=== PATIENT | female | born 1930 | race Caucasian/White ===

== ENCOUNTER 2017-08-20 15:34 | Observation (INO) | payer MEDICARE ==
[2017-08-20 16:48] LABS: Hematocrit 35 % (35-47); Mean Corpuscular HGB Conc 35 g/dl (31-36); Mean Corpuscular Hemoglobin 31 pg (27-31); Mean Corpuscular Volume 88 fL (80-97); Mean Platelet Volume 7.2 um3 (7.4-10.4); Platelet Count 273 10^3/ul (150-450); Red Blood Count 3.93 10^6/ul (4.0-5.4); Red Cell Distribution Width 14 % (10.5-15); White Blood Count 6.4 10^3/ul (3.5-10.8)
[2017-08-20 17:05] LABS: EGFR Non-African American 36.6 (>60)
[2017-08-20] MEDS ORDERED: Metoprolol Tartrate IV* 1 MG/ML 5 ML VIAL IV ONE ×2 (18:09→20:01)
--- NOTE | 2017-08-20 18:26 | RAD ---
HISTORY: Altered mental status COMPARISONS: May 12, 2006 TECHNIQUE: Multiple contiguous axial CT scans were obtained of the head without intravenous contrast. FINDINGS: HEMORRHAGE/INFARCT: There is no hemorrhage or acute infarct. MASSES/SHIFT: There is no mass or shift. EXTRA-AXIAL SPACES: There are no extra-axial fluid collections. SULCI AND VENTRICLES: The sulci and ventricles are normal in size and position for the patient's stated age. CEREBRUM: There are no focal parenchymal abnormalities. BRAINSTEM: There are no focal parenchymal abnormalities. CEREBELLUM: There are no focal parenchymal abnormalities. VESSELS: There is calcification of the cavernous segments of the internal carotid arteries bilaterally. PARANASAL SINUSES: The paranasal sinuses are clear. ORBITS: The orbits are unremarkable. BONES AND SOFT TISSUE: No bone or soft tissue abnormalities are noted. OTHER: None IMPRESSION: NO ACUTE INTRACRANIAL PATHOLOGY.
[2017-08-20 19:06] LABS: Urine Appearance Clear; Urine Blood Negative (Negative); Urine Color Yellow; Urine Ketones Negative (Negative); Urine Protein 1+(30 mg/dL) (Negative); Urine Specific Gravity 1.009 (1.010-1.030); Urine Urobilinogen Negative (Negative)
[2017-08-21] MEDS ORDERED: NS 0.9% 1000 ML* 1,000 ML IV SCH (00:15)
--- NOTE | 2017-08-21 02:00 | HP ---
CC: Dr. Cam * HISTORY AND PHYSICAL: DATE OF ADMISSION: 08/20/17 PRIMARY CARE PROVIDER: Dr. Cam. CHIEF COMPLAINT: Confusion. HISTORY OF PRESENT ILLNESS: Ms. Antonio is an 86-year-old female who has a history of hypertension, hyperlipidemia, and acid reflux, who presents to the emergency room with possibly confusion versus word finding difficulties. The patient states that the staff at the [facility] where she resides thought she was mixing up her words. Her daughter noted this the night prior to admission as well. The patient states currently she is feeling well, but tired. The patient's daughter reportedly stated to her mom that she thought she was still perhaps having some mild problems. There was concern that the patient may have had a urinary tract infection, by her daughter, in the days leading up to these events. However, she was not treated with antibiotics. She had taken some herbal medication and some Aleve recently, which she stopped. The patient ultimately was brought to the emergency room by her daughter for evaluation of the possible confusion. PAST MEDICAL HISTORY: 1. Hypertension. 2. Hyperlipidemia. 3. GERD. PAST SURGICAL HISTORY: 1. Left cataract extraction. 2. Tonsillectomy. MEDICATIONS: 1. Simvastatin 40 mg p.o. daily. 2. Ferrous sulfate 325 mg p.o. daily. 3. Vitamin B12, 3000 mcg p.o. daily. 4. Omeprazole 20 mg p.o. daily. 5. Metoprolol tartrate 12.5 mg p.o. twice daily. 6. Lisinopril 2.5 mg p.o. daily. 7. Centrum Silver Women 1 tab p.o. daily. ALLERGIES: No known drug allergies. FAMILY HISTORY: Mom at the age of 78 of coronary disease. Dad in his 30s of a pneumonia. SOCIAL HISTORY: The patient is a former smoker. She quit approximately 16 years ago and has a [id number] history of smoking. She does not drink alcohol. She resides at the [facility]. 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 She is . She had 2 children, her son committed suicide. Her daughter Eve is her healthcare proxy. REVIEW OF SYSTEMS: A complete 11-system review of systems was obtained. Pertinent positives and negatives are as per HPI. In addition, the patient does deny any palpitations. She does admit to mild constipation. PHYSICAL EXAMINATION GENERAL: The patient is a well-developed elderly female, sitting up in the chair, in no acute distress. VITAL SIGNS: Blood pressure 144/87, pulse 68, respirations 26, temp 97.8, O2 sat 95% on room air. HEENT: Pupils are equal and round. Extraocular muscles are intact. Oropharynx is clear. Oral mucosa is moist. There is no submandibular, cervical or supraclavicular adenopathy. Thyroid is not enlarged. No thyroid nodules noted. PULMONARY: Lungs are clear to auscultation bilaterally. CARDIAC: Normal S1 and S2. Regular rate and rhythm. There is a 3/6 systolic murmur, heard best at the right upper sternal border. There is no lower extremity edema. ABDOMEN: Bowel sounds are present. Abdomen is soft, nontender, nondistended. MUSCULOSKELETAL: There is no cyanosis or clubbing of the digits. There is full active range of motion of all 4 extremities. NEURO: Cranial nerves II through XII are grossly intact. The patient does appear to have slight left facial droop, most noted at the linen room custodian of the mouth on the left. Sensation is intact to light touch throughout. Strength is 5/5 and symmetric in the upper and lower extremities bilaterally. The patient does at times have trouble with word finding; however, she does state that she is tired and she has trouble finding medical related words such as anemic. SKIN: Warm and dry. There are no rashes. PSYCH: The patient is alert. She is oriented x3. Affect appears appropriate. DIAGNOSTIC STUDIES/LAB DATA: WBC 6.4, hemoglobin 12.0, hematocrit 35, platelets 273. Sodium 126, potassium 4.4, chloride 92, CO2 of 23, BUN 24, creatinine 1.37, glucose 93, calcium 9.6. Bilirubin 0.4, AST 25, ALT 19, alk phos 51, albumin 3.9. Urinalysis reveals a specific gravity of 1.009, 1+ protein , 1+ bacteria, trace WBC, negative leukocyte esterase, negative nitrite. EKG reveals normal sinus rhythm, without any acute ST-T wave abnormalities. CT brain: No acute intracranial pathology. ASSESSMENT AND PLAN: Ms. Antonio is an 86-year-old female with a history of hypertension, hyperlipidemia, and gastroesophageal reflux disease, who was seen in the emergency room today for complaints of possible confusion versus word finding difficulty. 1. Confusion versus word finding difficulty. The patient appears to be doing quite well at this time. It is late and the words that she is having trouble with currently are not common. The patient has no evidence of slurred speech. She does have a slight left facial droop. She does not recall seeing this, but she also is not looking at a mirror at this point to tell me whether or not this is baseline. I am concerned that she could have had a small cerebrovascular accident. The patient will be started on Plavix (she declines aspirin given her history of anemia) and she will be maintained on her usual dose of Zocor. She will have neuro checks every 4 hours. She will undergo transthoracic echocardiogram and MRI of the brain tomorrow. I am going to hold off on neuro consultation at this point; however, this could be considered tomorrow. Additionally, a hypertensive encephalopathy is a possibility as the cause of her symptoms. The patient's blood pressure was markedly elevated on presentation to the emergency room at 200/99. Her blood pressure has trended down, but is not as low as it typically is. She states typically she runs with the systolic in the 120s. The diagnostic plan will be just as above. I will increase her lisinopril to 5 mg daily with close monitoring of her blood pressure. 2. Hypertension, as above. The patient had marked hypertension on presentation to the emergency room. Her blood pressure has trended down with 2 doses of IV metoprolol in the ER. She will continue on her usual dose of metoprolol tartrate and I will increase her lisinopril to 5 mg daily. We will monitor her blood pressure closely. 3. Hyperlipidemia. Lipid profile will be obtained tomorrow morning, but in the meantime she will continue on her usual dose of Zocor. 4. DVT prophylaxis. According to the Adult Thrombosis Prophylaxis Risk Factor Assessment Guide, the patient has a total risk factor score of 4, making her high risk. She will be placed on heparin 5000 units subcutaneous q.8 hours. 5. Code status is full. TIME SPENT: 65 minutes were spent on admitting this patient. [id number]/[facility] #: [id number] JESUSITA
[2017-08-21] MEDS: Clopidogrel TAB* 75 MG PO SCH ×2 (02:02→09:56)
[2017-08-21] MEDS ORDERED: hydrALAZINE IV* 20 MG/ML VIAL IV SLOW PU PRN (04:04)
[2017-08-21] MEDS: Heparin VIAL(*) 5000 UNITS/ML VIAL (FIVE THOUSAND) SUBCUT SCH ×3 (05:34→22:02)
[2017-08-21 08:14] LABS: EGFR Non-African American 39.5 (>60)
[2017-08-21] MEDS ORDERED: Lisinopril TAB* 5 MG PO SCH (09:00)
[2017-08-21] MEDS ORDERED: CMCS:Pantoprazole TAB (NF) 40 MG TAB PO SCH (09:00)
[2017-08-21] MEDS: Metoprolol Tartrate TAB* 25 MG PO SCH ×2 (09:54→22:02)
[2017-08-21] MEDS: Ferrous Sulfate TAB* 325 MG PO SCH (09:55)
[2017-08-21] MEDS: Atorvastatin* 20 MG TAB PO SCH (09:56)
[2017-08-21] MEDS: Lisinopril TAB* 5 MG PO SCH (09:57)
--- NOTE | 2017-08-21 13:15 | RAD ---
HISTORY: Stroke COMPARISONS: CT dated August 20, 2017 TECHNIQUE: The following sequences were obtained of the head: Sagittal T1-weighted images, axial T2-weighted images, axial FLAIR images, axial susceptibility weighted images, axial T1-weighted images. Additionally, axial diffusion-weighted images were obtained with calculated apparent diffusion coefficients. FINDINGS: HEMORRHAGE/INFARCT: There is no hemorrhage or acute infarct. MASSES/SHIFT: There is no mass or shift. EXTRA-AXIAL SPACES/MENINGES: There are no extra-axial fluid collections. SULCI AND VENTRICLES: The sulci and ventricles are normal in size and position for the patient's stated age. CEREBRUM: There are multiple scattered small foci of elevated T2/FLAIR signal within the periventricular and subcortical white matter. BRAINSTEM: There is elevated T2/FLAIR signal within the pontine white matter. CEREBELLUM: There are no focal parenchymal abnormalities. The cerebellar tonsils are normal in size and position. SELLA: The sella is normal. PINEAL: The pineal region is clear. CP ANGLE/TEMPORAL BONES: The labyrinthine structures are grossly normal. VESSELS: Normal flow-voids are noted within the visualized vertebral vasculature. DIFFUSION ABNORMALITIES: There are no diffusion abnormalities. PARANASAL SINUSES/MASTOIDS: The paranasal sinuses are clear. ORBITS: The orbits are unremarkable. BONES AND SOFT TISSUE: No bone or soft tissue abnormalities are noted. OTHER: None IMPRESSION: 1. ELEVATED T2/FLAIR SIGNAL WITHIN THE PERIVENTRICULAR, SUBCORTICAL, AND PONTINE WHITE MATTER, NONSPECIFIC, BUT SUGGESTIVE OF CHRONIC SMALL VESSEL ISCHEMIA. 2. NO RESTRICTED DIFFUSION TO SUGGEST ACUTE INFARCT.
--- NOTE | 2017-08-21 17:31 | RAD ---
HISTORY: Stuttering speech, speech disturbance COMPARISONS: None TECHNIQUE: Multiple transverse and longitudinal ultrasound images were obtained of the carotid and vertebral arteries bilaterally, using grayscale, color Doppler, and spectral Doppler imaging. FINDINGS: Measurement of carotid stenosis is based on flow velocity parameters that correlate the residual internal carotid artery diameter with [place] Symptomatic Carotid Endarterectomy Trial (NASCET)-based stenosis levels. RIGHT: Intima: There is diffuse intimal thickening with more focal atheroma formation at the bifurcation. Velocities: Right internal carotid artery maximum peak systolic velocity: 81 cm/s Right common carotid artery maximum peak systolic velocity: 72 cm/s Right internal carotid artery/common carotid artery ratio: 0.8 Waveforms: There is no spectral broadening. Right Vertebral: The right vertebral artery flow is antegrade. LEFT: Intima: There is diffuse intimal thickening with more focal atheroma formation at the bifurcation. Velocities: Left internal carotid artery maximum peak systolic velocity: 70 cm/s Left common carotid artery maximum peak systolic velocity: 92 cm/s Left internal carotid artery/common carotid artery ratio: 0.8 Waveforms: There is no spectral broadening. Left Vertebral: The left vertebral artery flow is antegrade. OTHER FINDINGS: None. IMPRESSION: 1. ATHEROMATOUS DISEASE. 2. NO HEMODYNAMICALLY SIGNIFICANT STENOSIS OF THE RIGHT INTERNAL CAROTID ARTERY BY FLOW VELOCITY MEASUREMENTS. THIS CORRESPONDS TO A LUMINAL DIAMETER OF LESS THAN 50% STENOSIS BY NASCET CRITERIA. 3. NO HEMODYNAMICALLY SIGNIFICANT STENOSIS OF THE LEFT INTERNAL CAROTID ARTERY BY FLOW VELOCITY MEASUREMENTS. THIS CORRESPONDS TO A LUMINAL DIAMETER OF LESS THAN 50% STENOSIS BY NASCET CRITERIA. CPT II Codes: 3100F
--- NOTE | 2017-08-21 17:45 | ECHO ---
Patient: PEPPER RAMOS [facility] Rec#: [id number] : 1930 Date: 08/21/2017 Age: 86y Height: 162.56 cm / 64.0 in Weight: 72.57 kg / 159.9 lbs Sex: F BSA: 1.78 Room#: 450 Admit Date#: 08/20/2017 Type: Inpatient Referring: Nel Joseph DO Reading: Nicole Ogden MD Adoption Coordinator: María Elena Arechiga RDCS,RDMS CC: Cynthia Cam MD Transthoracic Echocardiogram Indication: Cardiac murmur BP: 142/69 HR: 69 Rhythm: NSR Findings History: AOV stenosis, HTN, HLD, GERD, former smoker Technical Comments: The study quality is good. Left Ventricle: The left ventricular chamber size is normal. Mild concentric left ventricular hypertrophy is observed. Global left ventricular wall motion and contractility are within normal limits. The estimated ejection fraction is 60-65%. There is no consistent Doppler evidence of clinically significant diastolic dysfunction. Left Atrium: The left atrial chamber size is normal. Right Ventricle: The right ventricular chamber size and systolic function are within normal limits. The right ventricle wall thickness is mildly increased. Right Atrium: The right atrial cavity size is normal. Aortic Valve: The aortic valve leaflets are mildly thickened. There is moderate thickening of the non coronary cusp. Systolic excursion of the aortic valve cusps is reduced. There is no evidence of aortic regurgitation. There is mild to moderate aortic stenosis. The mean gradient of the aortic valve is 15 mmHg. The aortic valve area, by VTI's, is calculated at 1.1 cm2. Mitral Valve: There is mitral annular calcification. Mild mitral leaflet calcification is visualized. There is no evidence of mitral regurgitation. There is no evidence of mitral stenosis. Tricuspid Valve: The tricuspid valve leaflets are not thickened. There is trace tricuspid regurgitation. Unable to estimate the right ventricular systolic pressure. Pulmonic Valve: The pulmonic valve structure is not well visualized. There is no evidence of pulmonic regurgitation. Pericardium: There is no significant pericardial effusion. Aorta: The aortic root appears normal. There is no dilatation of the aortic arch. Pulmonary Artery: The main pulmonary artery is not well visualized. Venous: The inferior vena cava appears normal in size. There is a greater than 50% respiratory change in the inferior vena cava dimension. Conclusions Mild concentric left ventricular hypertrophy is observed, The estimated ejection fraction is 60-65%. The right ventricular chamber size and systolic function are within normal limits. The aortic valve leaflets are mildly thickened. There is mild to moderate aortic stenosis: the mean gradient of the aortic valve is 15 mmHg. The aortic valve area, by VTI's, is calculated at 1.1 cm2. There is mitral annular calcification and MV sclerosis. Compared with prior echo of 07/31/13, LVEF has normalized from 35-40%, seen previously, mean gradient has increased from 9 mHg, previous moderate MR and TR no longer noted. Prior PA pressure was 62 mmHg. Measurements Name Value Normal Range RVIDd (AP) 2D 2.3 cm (0.9 - 2.6) RVDdMajor (2D) 2.3 cm (2.2 - 4.4) RAd ISD 4CH 4 cm (3.4 - 4.9) RA (A4C)W 3.1 cm (2.9 - 4.6) IVSd (2D) 1.2 cm (0.6 - 1) LVPWd (2D) 1.3 cm (0.6 - 1) LVIDd (2D) 4 cm (3.6 - 5.4) LVIDs (2D) 2.3 cm - LV FS (2D) 43 % (25 - 45) Aortic Annulus 2 cm (1.4 - 2.6) Ao root diameter (2D) 2.9 cm (2.1 - 3.5) Ascending Ao 3 cm (2.1 - 3.4) Aortic arch 2.3 cm (1.8 - 3.4) LA dimension (AP) 2D 3.1 cm (2.3 - 3.8) LAd ISD 4CH 4.3 cm (2.9 - 5.3) LA ISD 4CH W 3.6 cm (2.5 - 4.5) Name Value Normal Range LA ESV SP 4CH (A/L) 43.86 ml - LA ESV SP 2CH (A/L) 39.07 ml - LA ESV BP (A/L) 43.37 ml - LA ESV BP (A/L) index 25 ml/m2 - LA ESV SP 4CH (MOD) 38.21 ml - LA ESV SP 2CH (MOD) 35.25 ml - Name Value Normal Range MV E-wave Vmax 6 m/sec - MV deceleration time 228 msec - MV A-wave Vmax 1 m/sec - MV E:A ratio 0.6 ratio - LV septal e' Vmax 0.04 m/sec - LV lateral e' Vmax 0.08 m/sec - LV E:e' septal ratio 15 ratio - LV E:e' lateral ratio 7.5 ratio - Name Value Normal Range AV Vmax 2.5 m/sec - AV VTI 51 cm - AV peak gradient 25 mmHg - AV mean gradient 15 mmHg - LVOT diameter 2 cm - LVOT Vmax 0.8 m/sec - LVOT VTI 18 cm - LVOT peak gradient 2.6 mmHg - LVOT mean gradient 1.4 mmHg - DOI (VTI) 0.4 ratio - SV LVOT 55.54 ml - SANDRA (continuity Vmax) 1 cm2 - SANDRA (continuity VTI) 1.1 cm2 - Name Value Normal Range MV Vmax 1.1 m/sec - MV VTI 25 cm - MV peak gradient 5 mmHg - MV mean gradient 1.8 mmHg - MV PHT 48 msec - MVA (PHT) 4.6 cm2 - MVA (continuity VTI) 2.2 cm2 - Name Value Normal Range RAP 8 mmHg - IVC diameter 1.6 cm - Name Value Normal Range PV Vmax 0.5 m/sec - PV peak gradient 1 mmHg -
--- NOTE | 2017-08-21 18:36 | PN ---
Subjective Date of Service: 08/21/17 Interval History: Pt seen and examined. Meds and labs reviewed. ROS: Denied REECE/dizziness, F/C, N/V, CP, SOB, increased cough, sputum production , abd pain, diarrhea, constipation, dysuria, myalgias, arthralgias, throat pain , and new skin lesions. The rest of the 14 point ROS are unremarkable. PHYSICAL EXAM: GEN APPEARANCE: Awake, not in acute distress HEENT: NC/AT, PERRLA, moist oral mucosa, (-) throat erythema NECK: Soft, supple, (-) cervical LAD, (-)JVD HEART: S1S2 WNL, RRR, No MRG CHEST: CTA, BL, GAE, No W/R/R ABD: Soft, ND/NT, NABS 4x Q EXT: No C/C/E SKIN: Warm to touch PSYCH: No active psychosis, hallucinations, depression, SI/HI Objective Active Medications: Atorvastatin Calcium (Lipitor*) 20 mg PO DAILY [facility] Last Admin: 08/21/17 09:56 Dose: 20 mg Clopidogrel Bisulfate (Plavix Tab*) 75 mg PO DAILY [facility] Ferrous Sulfate (Ferrous Sulfate Tab*) 325 mg PO DAILY [facility] Last Admin: 08/21/17 09:55 Dose: 325 mg Heparin Sodium (Porcine) (Heparin Vial(*)) 5,000 units SUBCUT Q8HR [facility] Last Admin: 08/21/17 15:34 Dose: 5,000 units Hydralazine HCl (Apresoline Iv*) 5 mg IV SLOW PU Q6H PRN PRN Reason: SBP>190 Last Admin: 08/21/17 04:36 Dose: 5 mg Lisinopril (Prinivil Tab*) 5 mg PO DAILY [facility] Last Admin: 08/21/17 09:57 Dose: 5 mg Metoprolol Tartrate (Lopressor Tab*) 12.5 mg PO BID [facility] Last Admin: 08/21/17 09:54 Dose: 12.5 mg Vital Signs - 8 hr 08/21/17 08/21/17 08/21/17 12:22 13:29 14:42 Temperature 97.1 F 98.2 F 97.3 F Pulse Rate 63 99 77 Respiratory 16 16 18 Rate Blood Pressure 148/62 131/78 133/62 (mmHg) O2 Sat by Pulse 96 93 Oximetry 08/21/17 16:01 Temperature 97.4 F Pulse Rate 65 Respiratory 16 Rate Blood Pressure 149/75 (mmHg) O2 Sat by Pulse 100 Oximetry Oxygen Devices in Use Now: None Result Diagrams: 08/20/17 16:35 08/21/17 06:08 Microbiology and Other Data: Microbiology 08/21/17 00:55 Nasal Screen MRSA (PCR)(SARITA) - Final Nasal Mrsa Not Detected Assess/Plan/Problems-Billing Assessment: - Patient Problems (1) TIA (transient ischemic attack) Current Visit: Yes Status: Acute Comment: --MRI, echo, and carotid evaluations shows NAD --Pts symptoms and word finding difficulty improved --Ordered fasting lipid profile in AM --Will order HBa1c and TSH (2) HTN (hypertension) Current Visit: Yes Status: Acute Code(s): I10 - ESSENTIAL (PRIMARY) HYPERTENSION SNOMED Code(s): 58713926 Comment: --Continue Lisinopril and Metoprolol (3) DVT prophylaxis Current Visit: Yes Status: Acute Code(s): JKS3914 - SNOMED Code(s): 318453520 Comment: --Continue Heparin SQ Status and Disposition: --For PT eval
[2017-08-21] MEDS ORDERED: Clopidogrel TAB* 75 MG PO SCH (19:00)
--- NOTE | 2017-08-21 21:21 | CONS ---
NEUROLOGY CONSULTATION REPORT: DATE OF CONSULT: 08/21/17 CONSULTING PHYSICIAN: Dr. Nel Joseph. REASON FOR CONSULT: Neurology was consulted by Dr. Joseph to evaluate for possible stroke. The history was obtained from the patient. I also discussed the case in detail with the patient's daughter, Madelyn. CHIEF COMPLAINT: "Administration at my facility were giving me a hard time." HISTORY OF PRESENT ILLNESS: Beverly Antonio is an 86-year-old right-handed female, who has history of hypertension, who lives at [facility] and is independent in all activities of daily living. The patient had sudden onset of confusion that started yesterday at 3 p.m. She came down to the lobby in the facility and she thought that administrators were giving a "hard time." According to her daughter, Madelyn, the patient was trying to put a remote clicker in her purse thinking it is her phone. She was coherently not making any sense. She was slurring her words and substituting words with incorrect words. For instance, she stated "I will see you yesterday." This was sudden in onset. This progressed throughout the day. EMS was contacted and the patient was found to be significantly hypertensive. She denied any focal weakness or paresthesias. 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 The patient is not allergic to aspirin and suffered from anemia of unclear etiology with no history of hemorrhage in the past. She did require a blood transfusion. The patient has history of word-finding difficulty for the last 3 to 4 months. According to Madelyn, the patient has had memory problems and is very forgetful. PAST MEDICAL HISTORY: Anemia, requiring blood transfusion; CHF; hypertension; syncope; pulmonary hypertension; osteoporosis; cataracts. PAST SURGICAL HISTORY: No intracranial surgeries. FAMILY HISTORY: Mother had severe Alzheimer's dementia. Father of pneumonia. SOCIAL HISTORY: The patient was a smoker 16 years ago. She was smoking 1 pack per day for 30 years. She denied any alcohol use. She lives alone in a senior residence. REVIEW OF SYSTEMS: A 10-point review of systems was obtained and otherwise negative except for what was mentioned in the HPI. Specifically, the patient denied any impairment in her bowel or bladder function. The patient had no recent falls. PHYSICAL EXAM: Vitals: Temperature 97.8, heart rate of 77, respiratory rate of 16, saturating 98%, blood pressure upon arrival was 200 systolic. Her systolic blood pressure went up to 220s at one point during admission. Currently, her blood pressure is better controlled at 148 systolic and 62 diastolic. General: Well- nourished, well-developed, alert, cooperative female , in no acute distress. She had inappropriate laughter throughout the interview. Head is normocephalic without obvious abnormality. Eyes: Conjunctivae and corneas are clear. Neck: Supple and symmetric. No carotid bruit. Lungs are clear to auscultation bilaterally and nonlabored breathing is noted. Cardiovascular: Regular rate and rhythm. S1, S2 is normal with radial pulses palpable. Extremities: Normal range of motion with no cyanosis. Skin: No skin lesions or laceration. Psych: Affect is broad and normal mood. Easy to establish rapport. She did require redirection a few times due to inappropriate laughter. Neurological Examination. Mental Status: Awake and alert, oriented to person, place, time, and general circumstances. She did have trouble with delayed recall as she was only able to remember 1/5 words in 2 minutes. There is no dysarthria or aphasia. She was able to spell the word world, but was unable to spell it backwards. She had trouble with simple serial 7s. Cranial Nerves: Normal confrontation bilaterally. Pupils mid range and reactive to light. Normal consensual response. Extraocular muscles are intact. No ptosis. No conjugate or asymmetric nystagmus. Sensation is intact on the forehead, cheeks, and jaw region. No facial droop. Able to hear throughout the history process. Palatal elevation is symmetric. There is normal strength against resistance. The tongue is symmetrical and midline with no atrophy or fasciculation. Motor Examination: No abnormal movements, no pronator drift. Normal bulk and tone throughout. No fasciculation. Motor strength is 5/5 throughout. Reflexes 2+ in the upper extremity, 1+ in the lower extremity, 0 at the ankles. Sensation intact to light touch throughout. Normal vibration to medial malleolus, absent at the great toes. Coordination: Normal [id number] and rapid alternating movements. Gait and station: Wide based, unsteady, stooped posture, required a walker. She did not want to ambulate without the walker. DIAGNOSTIC STUDIES/LAB DATA: She had a brain CT without contrast completed on 08/20/17 that showed no acute intracranial pathology. I independently reviewed the study. An MRI of the brain without contrast completed on 08/21/17 showed elevated T2 signal within the periventricular, subcortical and pontine white matter nonspecific, but suggestive of chronic small vessel ischemia. There is no restricted diffusion to suggest an acute infarct. TSH was 2.29, free T4 1.04. Urinalysis showed 1+ urine bacteria and 1+ protein. There was no evidence of pyuria. Sodium level was 126 upon admission with creatinine of 1.37. ASSESSMENT: 1. Acute delirium - I suspect the patient may have had hypertensive encephalopathy in the setting of significantly elevated blood pressure. Other differential diagnosis includes dehydration or metabolic disturbance such as hyponatremia (Na level was 126). 2. Mild cognitive impairment - the patient did have some cognitive deficits on the mini-mental examination that was briefly completed at bedside. Her daughter , Madelyn, has complained of significant memory problem over the last few months. The patient does drive. 3. Hypertensive emergency - her blood pressure has improved over the last few hours. Defer treatment to the primary team. 4. Small chronic white matter disease. PLAN: I ordered carotid ultrasound to evaluate for underlying carotid disease. I would like to make sure she does not have any severe carotid stenosis on the left side, which may be causing TIAs in the left ICA vascluar distribution. I doubt that this is a case here. I recommend starting aspirin for the chronic white matter disease seen on the MRI. The patient needs evaluation by a neurologist as an outpatient to possibly consider cholinesterase inhibitor, NMDA inhibitor for her memory. Also, the patient will need functional evaluation as an outpatient to make sure she can drive given her memory impairment. The patient did not have a stroke. I recommend obtaining a PT evaluation. Continue IV hydration. I will defer this to the primary team, but do we need to check urine culture? I have ordered vitamin B12 to rule out any secondary causes of cognitive slowing. For blood pressure parameters: keep systolic blood pressure between 120 to less than 140 mmHg. Continue neuro checks every 4 hours. We discussed fall precautions. I will continue to follow. Anticipated discharge if she is cleared from the medical standpoint would be hopefully tomorrow. [id number]/[facility] #: [id number] JESUSITA
[2017-08-22] MEDS: Heparin VIAL(*) 5000 UNITS/ML VIAL (FIVE THOUSAND) SUBCUT SCH (05:46)
[2017-08-22 06:33] LABS: ABS Basophils 0 10^3/ul (0-0.2); ABS Eosinophils 0.3 10^3/ul (0-0.6); ABS Lymphocytes 1.3 10^3/ul (1.0-4.8); ABS Monocytes 0.7 10^3/ul (0-0.8); ABS Nucleated RBC 0 10^3/ul; Hematocrit 35 % (35-47); Hemoglobin 11.7 g/dl (12.0-16.0); Lymphocyte % 24.7 % (25-47); Mean Corpuscular HGB Conc 33 g/dl (31-36); Mean Corpuscular Hemoglobin 30 pg (27-31); Mean Corpuscular Volume 89 fL (80-97); Mean Platelet Volume 7.2 um3 (7.4-10.4); Nucleated Red Blood Cells % 0; Platelet Count 274 10^3/ul (150-450); Red Blood Count 3.95 10^6/ul (4.0-5.4); Red Cell Distribution Width 14 % (10.5-15); White Blood Count 5.3 10^3/ul (3.5-10.8)
[2017-08-22 06:45] LABS: EGFR Non-African American 37.8 (>60)
[2017-08-22] MEDS: Ferrous Sulfate TAB* 325 MG PO SCH (08:55)
[2017-08-22] MEDS: Lisinopril TAB* 5 MG PO SCH (08:55)
[2017-08-22] MEDS: Atorvastatin* 20 MG TAB PO SCH (08:55)
[2017-08-22] MEDS: Metoprolol Tartrate TAB* 25 MG PO SCH (08:56)
[2017-08-22] MEDS ORDERED: CMCS: Pantoprazole TAB (NF) 40 MG TAB PO SCH (09:00)
[2017-08-22 13:03] VITALS: BP 119/80
--- NOTE | 2017-08-22 14:44 | PN ---
Work Excuse - Work Note Work Note: The above employee has been evaluated on 08/22/17. The physician has instructed the employee concerning further work as described below. 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 As long as she follows are instructions and advice, she is safe to resume her duties. William Armando MD [id number]
[2017-08-22] MEDS ORDERED: Clopidogrel TAB* 75 MG PO SCH (20:00)
--- NOTE | 2017-08-23 04:24 | DS ---
CC: Nel Joseph DO; Dr. Barnett; Dr. Cam DISCHARGE SUMMARY: DATE OF ADMISSION: DATE OF DISCHARGE: DISCHARGE DIAGNOSES: As follows: 1. Transient ischemic attack. 2. Hypertension, improved control. 3. Hyperlipidemia. HISTORY OF PRESENT ILLNESS/HOSPITAL COURSE: The patient is an 86-year-old lady with a history of hypertension, hyperlipidemia, and GERD who presented to the emergency room on 08/21/17 in [facility] due to confusion and word finding difficulties. She was then admitted for observation overnight and was sent for an MRI, carotid Dopplers, and echocardiogram during her hospitalization stay. All of her imaging does not suggest any acute intracranial event including the brain CT done on initial presentation. The patient was informed of the above. The patient also declined to take aspirin and hence the reason why she was placed on Plavix. She had been advised about the importance of statins and antiplatelet therapy to further decrease the chances of stroke. She had been advised to follow up with her PCP within 3 days post discharge and to take her medications as prescribed. DISCHARGE MEDICATIONS: As follows: 1. Clopidogrel. 2. Lisinopril. 3. Pantoprazole. 4. Simvastatin. PHYSICAL EXAMINATION: Shows most recent vital signs of records with blood pressure of 119/80, 97.4 degrees Fahrenheit. General Appearance: The patient is awake, alert and oriented x3, not in acute distress. HEENT: Normocephalic, atraumatic. PERRLA. Extraocular muscles intact. Negative for icterus. Moist oral mucosa. Negative throat erythema. Neck is soft, supple, with no cervical lymphadenopathy. No JVD. Heart: S1, S2 within normal limits. Regular rate and rhythm. No murmurs, rubs, or gallops. Chest: Clear to auscultation bilaterally. Good air entry. No wheezes, rales, or rhonchi. Abdomen is soft, nondistended, and nontender. Normoactive bowel sounds 4 times. Extremities: No cyanosis, clubbing, or edema. Psychiatric: No active psychosis, depression , suicidal or homicidal ideation. Skin is warm to touch. [id number]/[facility] #: [id number] MTDD
--- NOTE | 2017-08-23 06:11 | DS ---
CC: Dr. Cam; Dr. Barnett; Dr. Diaz; Dr. Joseph DISCHARGE SUMMARY: DATE OF ADMISSION: 08/20/17 DATE OF DISCHARGE: 08/22/17 DISCHARGE DIAGNOSES: As follows: 1. Transient ischemic attack. 2. Hypertension. 3. Hyperlipidemia. HISTORY OF PRESENT ILLNESS/HOSPITAL COURSE: The patient is an 86-year-old lady with a hist ory of hypertension, hyperlipidemia and GERD, who presented to the emergency room with chief complain t of confusion on 08/20/17. She stated that the staff at [facility] where she resides thought that she was mixing up her words and hence she was brought to the ED. She was observed overnight and und erwent an MRI of her brain, carotid Dopplers, and echocardiogram all of which were otherwise unremark able. She was informed that she likely had a TIA given above workup and that she will need to be on antipla telets. She declined aspirin and hence she was placed on Plavix instead. She was placed on pantopra zole for her GERD instead of omeprazole given PPI interaction with Plavix. She is aware of above. PHYSICAL EXAMINATION: Reveals the most recent vital signs of records with blood pressure of 119/80, 99% saturation, heart rate of 76 per minute, 97.4 degrees Fahrenheit. General Appearance: The patie nt is awake, not in acute distress. HEENT: Normocephalic, atraumatic. PERRLA. Extraocular muscles intact. Negative for icterus. Moist oral mucosa. Negative throat erythema. Neck is soft, supple w ith no cervical lymphadenopathy. No JVD. Heart: S1, S2, within normal limits. Regular rate and rhy thm. No murmurs, rubs, or gallops. Chest: Clear to auscultation bilaterally. Good air entry. No wheezes, rales, or rhonchi. Abdomen is soft, nondistended, nontender. Normoactive bowel bowel sound s x4. Extremities: No cyanosis, clubbing, or edema. Psychiatric: No active psychosis, depression, suicidal or homicidal ideation. Skin is warm to touch. DISCHARGE MEDICATIONS: 1. Plavix. 2. Lisinopril. 3. Pantoprazole. 4. Simvastatin. 5. Zocor. [id number]/[facility] #: [id number]
--- NOTE | 2017-08-27 08:44 | ED ---
Justin Escobar Jennifer scribed for Mynor Diaz MD on 08/20/17 at 1811 . Neurological HPI - HPI Summary HPI Summary: The patient is an 86 year old female who presents with increased confusion and trouble speaking since yesterday. The patient denies anything abnormal, but the daughter and staff at the [facility] noted fluctuating disorientation, missing words, and starting sentences in Latvian and trailing off in babbles. The daughter additionally complains of increased urination, lower back pain, and fatigue. The patient ate breakfast today. Her systolic pressure was 200 and 223 as measured by EMS. The patient was accompanied in the ED by her daughter and grandson. - History of Current Complaint Chief Complaint: EDNeurologicalDeficit Stated Complaint: CONFUSION Time Seen by Provider: 08/20/17 15:51 Hx Obtained From: Patient Onset/Duration: Sudden Onset, Started days ago - one day, Still Present Timing: Constant Onset Severity: Mild Current Severity: Mild Pain Intensity: 3 Pain Scale Used: 0-10 Numeric Character: Other: - confusion, trouble speaking, disorientation, increased urination, lower back pain, fatigue, headache. NEGATIVE: dizziness, lightheadedness Aggravating: Nothing Alleviating: Nothing Associated Signs and Symptoms: Positive: Negative - dizziness, lightheadedness, Headache, Confusion, Impaired Speech, Incontinent Bladder/Bowel - Allergy/Home Medications Allergies/Adverse Reactions: Allergies Allergy/AdvReac Type Severity Reaction Status Date / Time acetaminophen [From Vicodin] Allergy Unknown Verified 08/20/17 18:02 Reaction Details hydrocodone [From Vicodin] Allergy Unknown Verified 08/20/17 18:02 Reaction Details Home Medications: Home Medications Cyanocobalamin TAB* [Vitamin B12 TAB*] 3,000 mg PO DAILY 08/20/17 [History Confirmed 08/20/17] Ferrous Sulfate TAB* 325 mg PO DAILY 08/20/17 [History Confirmed 08/20/17] Lisinopril TAB* [Prinivil TAB*] 2.5 mg PO DAILY 08/20/17 [History Confirmed 05/09] Metoprolol Tartrate TAB* [Lopressor TAB*] 12.5 mg PO BID 08/20/17 [History Confirmed 08/20/17] Multivit-Min/Iron/Folic/Lutein [Centrum Silver Women Tablet] 1 each PO DAILY 05/09 [History Confirmed 08/20/17] Omeprazole CAP* [Prilosec CAP* 20 MG] 20 mg PO DAILY 08/20/17 [History Confirmed 08/20/17] Simvastatin (NF) [Zocor (NF)] 40 mg PO DAILY 08/20/17 [History Confirmed ] PMH/Surg Hx/FS Hx/Imm Hx Endocrine/Hematology History: Reports: Hx Blood Transfusions - last week, in hospital stay, Hx Anemia Denies: Hx Diabetes Cardiovascular History: Reports: Hx Angina, Hx Congestive Heart Failure, Hx Hypertension, Hx Syncope, Other Cardiovascular Problems/Disorders - NEW EF of 30 %, cardiomyopathy, mitral/tricuspid regurg Denies: Hx Pacemaker/ICD Respiratory History: Reports: Other Respiratory Problems/Disorders - pulmonary HTN GI History: Reports: Hx Gastroesophageal Reflux Disease, Other GI Disorders - Gallbladder distended History: Denies: Hx Renal Disease Musculoskeletal History: Reports: Hx Osteoporosis Sensory History: Reports: Hx Contacts or Glasses Denies: Hx Hearing Aid Opthamlomology History: Reports: Hx Contacts or Glasses Psychiatric History: Denies: Hx Panic Disorder Infectious Disease History: No Infectious Disease History: Denies: Traveled Outside the [place] in Last 30 Days - Family History Known Family History: Negative: Renal Disease - Social History Alcohol Use: None Substance Use Type: Reports: None Hx Tobacco Use: Yes Smoking Status (MU): Never Smoked Tobacco Type: Cigarettes Amount Used/How Often: 1ppd Length of Time of Smoking/Using Tobacco: 60s Have You Smoked in the Last Year: No Review of Systems Positive: Fatigue. Negative: Fever, Chills Negative: Erythema Negative: Sore Throat Negative: Chest Pain Negative: Shortness Of Breath, Cough Negative: Abdominal Pain, Vomiting, Nausea Positive: incontinence. Negative: dysuria, hematuria Positive: Other - Lower back pain. Negative: Myalgia, Edema Negative: Rash Neurological: Negative - Dizziness, lightheadedness, Other - confusion, disorientation, missing words, trouble speaking Positive: Headache All Other Systems Reviewed And Are Negative: Yes Physical Exam - Summary Physical Exam Summary: Constitutional: Well-developed, Well-nourished, Alert. (-) Distressed Skin: Warm, Dry HENT: Dry mucous membranes. Normocephalic; Atraumatic Eyes: Conjunctiva normal Neck: Musculoskeletal ROM normal neck. (-) JVD, (-) Stridor, (-) Tracheal deviation Cardio: Rhythm regular, rate normal, Heart sounds normal; Intact distal pulses; The pedal pulses are 2+ and symmetric. Radial pulses are 2+ and symmetric. Grade 3 systolic murmur. Pulmonary/Chest wall: Effort normal. (-) Respiratory distress, (-) Wheezes, (-) Rales Abd: Soft, (-) Tenderness, (-) Distension, (-) Guarding, (-) Rebound Musculoskeletal: (-) Edema Lymph: (-) Cervical adenopathy Neuro: Alert, Oriented x3 Psych: Mood and affect Normal Triage Information Reviewed: Yes Vital Signs On Initial Exam: Initial Vitals Pulse Resp Pulse Ox 81 25 98 08/20/17 16:29 08/20/17 16:29 08/20/17 16:29 Vital Signs Reviewed: Yes Diagnostics - Vital Signs Vital Signs Temp Pulse Resp BP Pulse Ox 08/20/17 18:01 81 29 97 08/20/17 17:59 79 22 199/109 98 08/20/17 17:29 83 29 185/93 96 08/20/17 17:01 76 24 96 08/20/17 16:59 77 22 192/89 96 08/20/17 16:46 76 19 175/88 98 08/20/17 16:30 97.8 F 78 23 169/141 98 08/20/17 16:29 81 25 98 - Laboratory Lab Results: Lab Results 08/20/17 08/20/17 Range/Units 16:35 16:35 WBC 6.4 (3.5-10.8) 10^3/ul RBC 3.93 L (4.0-5.4) 10^6/ul Hgb 12.0 (12.0-16.0) g/dl Hct 35 (35-47) % MCV 88 (80-97) fL MCH 31 (27-31) pg MCHC 35 (31-36) g/dl RDW 14 (10.5-15) % Plt Count 273 (150-450) 10^3/ul MPV 7.2 L (7.4-10.4) um3 Sodium 126 L (139-145) mmol/L Potassium 4.4 (3.5-5.0) mmol/L Chloride 92 L (101-111) mmol/L Carbon Dioxide 23 (22-32) mmol/L Anion Gap 11 (2-11) mmol/L BUN 24 (6-24) mg/dL Creatinine 1.37 H (0.51-0.95) mg/dL Est GFR ( Amer) 47.0 (>60) Est GFR (Non-Af Amer) 36.6 (>60) BUN/Creatinine Ratio 17.5 (8-20) Glucose 93 (70-100) mg/dL Calcium 9.6 (8.6-10.3) mg/dL Total Bilirubin 0.40 (0.2-1.0) mg/dL AST 25 (13-39) U/L ALT 19 (7-52) U/L Alkaline Phosphatase 51 (34-104) U/L Total Protein 7.9 (6.4-8.9) g/dL Albumin 3.9 (3.2-5.2) g/dL Globulin 4.0 (2-4) g/dL Albumin/Globulin Ratio 1.0 (1-3) Result Diagrams: 08/20/17 16:35 08/20/17 16:35 Lab Statement: Any lab studies that have been ordered have been reviewed, and results considered in the medical decision making process. - CT Brain CT CT Interpretation: No Acute Changes - NO ACUTE INTRACRANIAL PATHOLOGY. Dr. Diaz has reveiwed this report. CT Interpretation Completed By: Radiologist - EKG 17:56 Cardiac Rate: NL EKG Rhythm: Sinus Rhythm - 80 BPM EKG Interpretation: no STEMI Re-Evaluation - Re-Evaluation First Eval Re-Evaluation Time: 20:14 Change: Unchanged Comment: Blood pressure persistently above 200 systolic. Confusion and speech difficulties could represent hypertensive urgency vs. TIA. Could benefit from observation. Course/Dx - Course Course Of Treatment: The patient is an 86 year old female who presents with increased confusion and trouble speaking since yesterday. Brain CT and EKG were obtained. The patient is diagnosed with hypertensive urgency and confusion. The patient was admitted to [facility]. - Diagnoses Provider Diagnoses: Hypertensive urgency, Confusion Discharge - Sign-Out/Discharge Documenting (check all that apply): Discharge/Admit/Transfer - Discharge Plan Condition: Good Disposition: ADMITTED TO [facility] Referrals: Cynthia Cam MD [Primary Care Provider] - Additional Instructions: Follow up with your primary care physician in three days. RETURN TO THE EMERGENCY DEPARTMENT FOR CHANGING OR WORSENING SYMPTOMS. The documentation as recorded by the Justin christiansen Jennifer accurately reflects the service I personally performed and the decisions made by me, Mynor Diaz MD.
== END 2017-08-22 13:55 | disposition home or self-care (01) ==
LOC: ED 15:34 → MEDTELE 08-21 00:32
PROVIDERS: ADMIT Hospitalist; ATTEND Student in an Organized Health Care Education/Training Program
DX: G45.9 Transient cerebral ischemic attack, unspecified (principal); I10 Essential (primary) hypertension; E78.5 Hyperlipidemia, unspecified; K21.9 Gastro-esophageal reflux disease without esophagitis; G31.84 Mild cognitive impairment of uncertain or unknown etiology; Z79.01 Long term (current) use of anticoagulants; Z79.899 Other long term (current) drug therapy; Z88.8 Allergy status to other drugs, medicaments and biological substances; Z87.891 Personal history of nicotine dependence; I51.7 Cardiomegaly
CPT/HCPCS: 36415; 70450; 70551; 80048; 80053; 80061; 81003; 81015; 82607; 83036; 83735; 84439; 84443; 85025; 85027; 87086; 87641; 93005; 93306; 93880; 96372; 96374; 96375; 99285; A9270-GY; G0378; G8978-GP-CK; G8979-GP-CK; G8980-GP-CK; J0360; J1644; J3490

== ENCOUNTER 2018-02-24 08:44 | Emergency (ER) | payer MEDICARE ==
--- NOTE | 2018-02-24 09:16 | ED ---
Back Pain - HPI Summary HPI Summary: The pt is an 87 yo female presenting to [facility] c/o mid back pain since 2 weeks ago. She notes insomnia, loss of appetite, and nausea but denies trauma and difficulty walking. The non-radiating pain rated 8/10 in severity is aggravated by standing up and alleviated by lying in position. 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 Her PCP recently placed her on new HTN medications but has not picked the prescription. She took 6 Tylenol pills a day to no relief. The pt reports a Mhx of osteoporosis, disc compressions, compression fractures, osteoarthritis , HTN , and HLD. - History of Current Complaint Chief Complaint: EDBackInjuryPain Stated Complaint: BACK PAIN Time Seen by Provider: 02/24/18 09:02 Hx Obtained From: Patient, Family/Firewall Engineer - Daughter Onset/Duration: Lasting Weeks - 2 weeks, Still Present Onset/Duration: Started Weeks Ago - 2 weeks, Atraumatic, Still Present Back Pain Location: Is Discrete @ - Mid back Severity Initially: Severe Severity Currently: Severe Pain Intensity: 8 Pain Scale Used: 0-10 Numeric Character: Sharp Aggravating Symptom(s): Other - Standing from a sitting position Alleviating Symptom(s): Position - position - Allergies/Home Medications Allergies/Adverse Reactions: Allergies Allergy/AdvReac Type Severity Reaction Status Date / Time hydrocodone [From Vicodin] Allergy Unknown Verified 02/24/18 09:01 Reaction Details PMH/Surg Hx/FS Hx/Imm Hx Previously Healthy: No Endocrine/Hematology History: Reports: Hx Blood Transfusions - last week, in hospital stay, Hx Anemia Denies: Hx Diabetes Cardiovascular History: Reports: Hx Angina, Hx Congestive Heart Failure, Hx Hypercholesterolemia - HLD, Hx Hypertension, Hx Syncope, Other Cardiovascular Problems/Disorders - NEW EF of 30%, cardiomyopathy, mitral/tricuspid regurg Denies: Hx Pacemaker/ICD Respiratory History: Reports: Other Respiratory Problems/Disorders - pulmonary HTN GI History: Reports: Hx Gastroesophageal Reflux Disease, Other GI Disorders - Gallbladder distended History: Denies: Hx Renal Disease Comment Only: Other Problems/Disorders - ?CKD Musculoskeletal History: Reports: Hx Arthritis, Other Musculoskeletal History - disc compressions, compression fractures Denies: Hx Osteoporosis Sensory History: Reports: Hx Cataracts - left removed, Hx Contacts or Glasses Denies: Hx Hearing Aid Opthamlomology History: Reports: Hx Cataracts - left removed, Hx Contacts or Glasses EENT History: Denies: Hx Deafness Psychiatric History: Denies: Hx Panic Disorder - Cancer History Cancer Type, Location and Year: None reported - Surgical History Surgery Procedure, Year, and Place: Tonsilectomy. cataracts. laproscpoic galbladder Infectious Disease History: No Infectious Disease History: Denies: Traveled Outside the [place] in Last 30 Days - Family History Known Family History: Negative: Renal Disease - Social History Occupation: Retired Lives: Alone Alcohol Use: None Substance Use Type: Reports: None Hx Tobacco Use: Yes Smoking Status (MU): Never Smoked Tobacco Type: Cigarettes Amount Used/How Often: 1ppd Length of Time of Smoking/Using Tobacco: 60s Have You Smoked in the Last Year: No Review of Systems Constitutional: Negative - Trauma , Other - Positive: Loss of appetite Negative: Fever Positive: Nausea Musculoskeletal: Negative - Difficulty walking , Other - Back pain Negative: Weakness All Other Systems Reviewed And Are Negative: Yes Physical Exam - Summary Physical Exam Summary: Appearance: Well-appearing, Well-nourished, lying in bed comfortably Skin: Warm, dry, no obvious rash Eyes: sclera anicteric, no conjunctival pallor ENT: mucous membranes moist, pharynx appears normal Neck: Supple, nontender Respiratory: Clear to auscultation, no signs of respiratory distress Cardiovascular: Normal S1, S2. Soft early systolic murmur. Normal distal pulses in tibial and radial bilaterally. Abdomen: Soft, nontender, normal active bowel sounds present Musculoskeletal: Normal, Strength/ROM Intact Neurological: A&Ox3, awake and alert, mentation is normal, speech is fluent and appropriate Psychiatric: affect is normal, does not appear anxious or depressed Triage Information Reviewed: Yes Vital Signs On Initial Exam: Initial Vitals Temp Pulse Resp BP Pulse Ox 98.5 F 96 16 116/68 95 02/24/18 08:57 02/24/18 08:57 02/24/18 08:57 02/24/18 08:57 02/24/18 08:57 Vital Signs Reviewed: Yes Diagnostics - Vital Signs Vital Signs Temp Pulse Resp BP Pulse Ox 02/24/18 08:57 98.5 F 96 16 116/68 95 - Laboratory Lab Statement: Any lab studies that have been ordered have been reviewed, and results considered in the medical decision making process. Re-Evaluation - Re-Evaluation First Eval Re-Evaluation Time: 09:43 Change: Improved - I discussed the lab results and discharge plan with the pt. Back Pain Course/Dx - Course Course Of Treatment: An 87 year-old F presents to the ED with a CC of mid back pain since 2 weeks ago. She notes loss of appetite, and nausea but denies trauma , fever, weakness and difficulty walking. A physical exam revealed a soft early systolic murmur but no focal tenderness. In the ED course, pt was given Tramadol 50 mg PO which improved the symptoms. Patient will be discharged with a final Dx of osteoarthritis and back pain. Pt is agreeable with this plan. Allergies noted. - Diagnoses Provider Diagnoses: Osteoarthritis, Back pain - Provider Notifications Discussed Care Of Patient With: Cynthia Cam Time Discussed With Above Provider: 09:35 Instructed by Provider To: Other - Dr. Cam recommended giving Tramadol Discharge - Sign-Out/Discharge Documenting (check all that apply): Patient Departure - DC - Discharge Plan Condition: Good Disposition: HOME Prescriptions: traMADol TAB* [Ultram*] 50 mg PO Q6HR PRN #20 tab MDD 4 tabs PRN Reason: Pain Patient Education Materials: Osteoarthritis (ED), Back Pain (ED) Referrals: Cynthia Cam MD [Primary Care Provider] - Additional Instructions: Follow up with your PCP in 3 days Return to ED for any new or worsening symptoms - Attestation Statements Document Initiated by Scribe: Yes Documenting Scribe: Kaitlin Kuo Provider For Whom Scribe is Documenting (Include Credential): Dr. Curtis Aponte MD Scribe Attestation: Kaitlin Escobar , scribed for Dr. Curtis Aponte MD on 02/24/18 at 1006.
[2018-02-24] MEDS ORDERED: traMADol TAB* 50 MG PO ONE (09:46)
[2018-02-24 10:08] VITALS: BP 128/72
--- OUTSIDE RECORDS SUMMARY | 2018-02-24 10:14 | XMS REPORT ---
:1930 External Reference #:[id number] Author Organization [facility] [employer] Address [address] [place] [address] [place] [address] Phone [phone] Care Team Providers Name Role Phone Cynthia Cam MD Primary Care Physician Unavailable Payers Type Date Identification Numbers Payment Provider Subscriber Medicare Primary Policy Number: [id number] Medicare Pepper Dysonr PayID: [id number] [address] [place] [address] [facility] Policy Number: [id number] [facility] Pepper Dysonr PayID: [id number] [address] [place] [address] Advance Directives Type Date Description Status Comment Other Directive 07/07/2014 Health Care Proxy Current and Verified Problems Date Description Provider Status Onset: 10/05/2010 Pure hypercholesterolemia Supriya Love M.D., FACP Active Onset: 10/05/2010 Anemia Supriya Love M.D., FACP Active Onset: 10/05/2010 Benign essential hypertension Supriya Love M.D., FACP Active Onset: 09/29/2014 Osteoporosis Cynthia Cam M.D. Active Onset: 10/07/2017 Transient cerebral ischemia Nicole Ogden M.D. Active Onset: 03/04/2015 Hyperlipidemia Nicole Ogden M.D. Active Onset: 03/04/2015 Aortic valve disorder Nicole Ogden M.D. 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 Cigarette Use Former Cigarette Smoker 1 Pack Daily Cigarette Use Quit - 2000 ETOH Use Denies alcohol use Smoking Patient is a former smoker Smoked 35 years 1 pack day Recreational Drug Use Denies Drug Use Daily Caffeine Consumes on average 4 cups of decaff coffee per day Exercise Type/Frequency Exercises sporadically walking Allergies, Adverse Reactions, Alerts Date Description Reaction Status Severity Comments 01/22/2014 NKDA active 06/10/2009 Vicodin EMESIS inactive Moderate Medications Medication Date Status Form Strength Qnty SIG Indications Ordering Provider Lisinopril 10/13 Active Tablets 10mg 180ta 1 by mouth bs twice a day Yaw Cam Atorvastatin 09/23 Active Tablets 40mg 90tab 1 by mouth Cynthia Calcium s every day Yaw Cam Pantoprazole 08/[address] 40mg 90tab 1 by mouth Cynthia Sodium s every day Yaw Cam Clopidogrel 08/30 Active Tablets 75mg 90tab Take 1 Bisulfate s Tablet By Tutu Mouth Every M.D. Day Iron Active Tablets 325(65Fe) 1 daily Unknown /0000 mg Vitamin B-12 Active 3000mg 1 by mouth Unknown /0000 every day Vitamin D3 Active Capsules 2000Unit 1 by mouth Unknown /0000 every day Centrum Silver Active Tablets 1 by mouth Unknown /0000 every day Lisinopril 08/23 Hx Tablets 5mg 180ta 1 by mouth bs twice daily Jena Cam M.D. 10/13 Pantoprazole 08/23 Hx Solution 40mg 1 by mouth Cynthia Sodium Rec every day Jena Cam M.D. 08/30 Plavix 08/23 Hx Tablets 75mg 30tab 1 by mouth Cynthia /2018 s every day Jena Cam M.D. 08/30 Lisinopril 05/04 Hx Tablets 2.5mg 90tab 1 by mouth Cynthia /2017 s every day Jena Cam M.D. 08/23 Lisinopril 01/25 Hx Tablets 5mg 90tab 1/2 by Cynthia s mouth every Cotton, - day M.D. 05/04 Calcium + D 06/13 Hx qd Cotton - M.D. 05/04 Furosemide 08/27 Hx Tablets 20mg 30tab 1 by mouth s every Varn, N.P. - morning 09/29 Citracal 07/30 Hx Tablets ER 600-40-50 1 by mouth Supriya Calcium+D 24HR 0mg-mg-Un every day Kate, - it M.D., [facility] 03/03 Zolpidem 07/30 Hx Tablets 5mg 10tab 1/2 tab at 780.52 Supriya Tartrate s bedtime as Kate, - needed for M.D., [facility] 08/27 sleep Guaifenesin ac 03/10 Hx Syrup 100-10mg/ 100cc 1 tsp by 462 5ML mouth every Kate, - day every M.D., [facility] 08/27 night needed Ergocalciferol 05/22 Hx Capsules [id number] 8caps 1 cap by 269.2 mouth every Kate, - week M.D., [facility] 07/30 Fluticasone 10/24 Hx Suspension 50mcg/Act 1unit 1 spray 786.2 Supriya Propionate s each Kate, - nostril in M.D., [facility] 08/04 Clindamycin 10/05 Hx Gel 1% 616.10 Supriya Phosphate Kate, - M.D., [facility] 10/05 Clindamycin 10/05 Hx Cream 2% 30uni 5 gm 616.10 Supriya Phosphate Vaginal ts intravagina , - Cream lly at M.D., [facility] 10/24 bedtime for 7 days Ferrimin 150 05/10 Hx Tablets 150mg Kate, - M.D., [facility] 05/10 Omeprazole 05/[address] 20mg 90cap Take 1 s Capsule By Cotton, - Mouth Every M.D. Simvastatin 01/18 Hx Tablets 20mg 90tab 1 by mouth Supriya /2009 s at bedtime Jena Love M.D., [facility] 01/18 Simvastatin 01/18 Hx Tablets 40mg 90tab take one Cynthia /2010 s tablet by Cotton, - mouth at M.D. 09/23 bedtime /2017 Mevacor Hx Tablets 20mg 90tab 1 tablet Supriya /0000 s daily Jena Love M.D., [facility] 01/18 Ferrex 150 Hx Capsules 50-100mg 1 capsule Supriya Forte Plus /0000 daily KateJena otoole M.D., [facility] 05/10 Lovastatin Hx Tablets 40mg 90tab 1 tablet Supriya /0000 s daily Jena Love M.D., [facility] 01/18 Claritin Hx Capsules 10mg 30cap 1 tablet Unknown /0000 s daily prn - 08/27 Lisinopril/Hydr Hx Tablets 20-25mg 90tab Take One Supriya ochlorothiazide /0000 s Tablet By Kate, - Mouth Every M.D., [facility] Aspir-[address] 81mg 1 by mouth Unknown /0000 every day - 08/04 Furosemide Hx Tablets 20mg 7tabs 1 by mouth Unknown /0000 every - morning 08/20 Centrum Silver Hx Tablets 1 by mouth Unknown /0000 every day - 01/25 Lisinopril Hx Tablets 2.5mg 90tab Take 1 Cynthia /0000 s Tablet By Cotton, - Mouth Every M.D. Metoprolol Hx Tablets 25mg 60tab Take 1 Cyntiha Tartrate /0000 s Tablet By Cotton, - Mouth Two M.D. 08/30 Times /2017 Immunizations CPT Code Status Date Vaccine Reaction Lot # [id number] Given 02/21/2018 Influenza Virus Vaccine, [id number] Quadrivalent, Split, Preservative Free 04569 Given 12/31/2016 Influenza Virus Vaccine, [id number] Quadrivalent, Split, Preservative Free 27233 Given 01/26/2016 Influenza Virus Vaccine, no reaction notaed .. [id number] Quadrivalent, Split Virus, [place] [address] Given 02/18/2015 Influenza Virus Vaccine, [id number] Quadrivalent, Split, Preservative Free 26209 Given 09/29/2014 Pneumococcal Conjugate [id number] Vaccine 13 Valent For Intramuscular Use 02151 Given 01/22/2014 Influenza Virus Vaccine, [id number] Quadrivalent, Split, Preservative Free Q2037 Given 02/06/2012 Fluvirin Im 3Yrs And Older [id number] Q2035 Given 02/27/2011 Afluria Vaccine [id number] 41946 Given 01/18/2010 Influenza Virus 3Yrs & Over 02758 Given 04/28/2009 Influenza Virus Vaccine, Pandemic Formulation 01643 Given 02/16/2009 Influenza Virus 3Yrs & Over 63145 Given 09/07/2008 Zoster (Zostavax) 73459 Given 03/30/2008 Influenza Virus 3Yrs & Over 79981 Given 03/28/2007 Influenza Virus 3Yrs & Over 48969 Given 03/28/2007 Influenza Virus 3Yrs & Over 16822 Given 05/02/2006 Influenza Virus 3Yrs & Over 73932 Given 05/02/2006 Influenza Virus 3Yrs & Over Vital Signs Date Vital Result Comment 02/21/2018 Height 59.25 inches 4'11.25" Weight 137.00 lb Heart Rate 70 /min BP Systolic 196 mmHg BP Diastolic 84 mmHg BP Systolic Sitting 196 mmHg BP Diastolic Sitting 89 mmHg Body Temperature 98.0 F O2 % BldC Oximetry 100 % BMI (Body Mass Index) 27.4 kg/m2 10/11/2017 Height 59.25 inches 4'11.25" Weight 145.00 lb Heart Rate 82 /min BP Systolic 179 mmHg her machine BP Diastolic 93 mmHg her machine BP Systolic Sitting 138 mmHg BP Diastolic Sitting 90 mmHg BP Systolic Standing 178 mmHg BP Diastolic Standing 86 mmHg Body Temperature 98.3 F O2 % BldC Oximetry 98 % BMI (Body Mass Index) 29.0 kg/m2 10/07/2017 Weight 142.00 lb with out shoes Heart Rate 80 /min BP Systolic Sitting 130 mmHg Lue reg cuff BP Diastolic Sitting 80 mmHg Lue reg cuff BP Systolic Standing 138 mmHg Lue reg cuff BP Diastolic Standing 90 mmHg Lue reg cuff Respiratory Rate 18 /min Ejection Fraction 60-65% date 5/08/18 ECHO 08/30/2017 Weight 142.00 lb Heart Rate 74 /min BP Systolic 170 mmHg BP Diastolic 82 mmHg BP Systolic Sitting 164 mmHg BP Diastolic Sitting 80 mmHg O2 % BldC Oximetry 98 % 08/01/2017 Height 59.25 inches 4'11.25" Weight 143.00 lb Heart Rate 68 /min BP Systolic Sitting 125 mmHg BP Diastolic Sitting 83 mmHg Body Temperature 97.7 F O2 % BldC Oximetry 97 % BMI (Body Mass Index) 28.6 kg/m2 12/31/2016 Height 59.25 inches 4'11.25" Weight 147.00 lb Heart Rate 78 /min BP Systolic 140 mmHg BP Diastolic 72 mmHg O2 % BldC Oximetry 94 % BMI (Body Mass Index) 29.4 kg/m2 06/19/2016 Height 59.25 inches 4'11.25" Weight 148.00 lb without shoes Heart Rate 72 /min BP Systolic Sitting 140 mmHg Lue reg cuff BP Diastolic Sitting 100 mmHg Lue reg cuff BP Systolic Standing 136 mmHg Lue reg cuff BP Diastolic Standing 98 mmHg Lue reg cuff Respiratory Rate 16 /min BMI (Body Mass Index) 29.6 kg/m2 Ejection Fraction 60% date 02/02/2014 ECHO 05/04/2016 Height 59.25 inches 4'11.25" Weight 148.00 lb Heart Rate 64 /min BP Systolic 150 mmHg BP Diastolic 90 mmHg Body Temperature 98.5 F O2 % BldC Oximetry 97 % BMI (Body Mass Index) 29.6 kg/m2 01/26/2016 Height 59.25 inches 4'11.25" Weight 149.00 lb Heart Rate 70 /min BP Systolic Sitting 161 mmHg BP Diastolic Sitting 87 mmHg Body Temperature 98.6 F O2 % BldC Oximetry 96 % BMI (Body Mass Index) 29.8 kg/m2 09/12/2015 Weight 151.00 lb Heart Rate 84 /min BP Systolic Sitting 128 mmHg BP Diastolic Sitting 82 mmHg Respiratory Rate 15 /min Body Temperature 98.3 F O2 % BldC Oximetry 98 % 06/13/2015 Weight 151.50 lb Heart Rate 73 /min BP Systolic 170 mmHg BP Diastolic 90 mmHg BP Systolic Sitting 181 mmHg BP Diastolic Sitting 87 mmHg Respiratory Rate 20 /min Body Temperature 97.4 F O2 % BldC Oximetry 95 % 03/04/2015 Height 58.25 inches 4'10.25" Weight 152.00 lb no shoes Heart Rate 80 /min BP Systolic Sitting 150 mmHg LA, reg cuff BP Diastolic Sitting 88 mmHg LA, reg cuff BP Systolic Standing 146 mmHg LA BP Diastolic Standing 90 mmHg LA Respiratory Rate 16 /min BMI (Body Mass Index) 31.5 kg/m2 Ejection Fraction 60% as of 02/02/14 echo 09/29/2014 Height 58.25 inches 4'10.25" Weight 151.00 lb Heart Rate 77 /min BP Systolic 155 mmHg BP Diastolic 83 mmHg Body Temperature 98.4 F O2 % BldC Oximetry 97 % BMI (Body Mass Index) 31.3 kg/m2 02/22/2014 Height 58.25 inches 4'10.25" Weight 144.00 lb without shoes Heart Rate 74 /min BP Systolic 138 mmHg patient cuff BP Diastolic 84 mmHg patient cuff BP Systolic Sitting 130 mmHg L arm reg cuff BP Diastolic Sitting 70 mmHg L arm reg cuff BP Systolic Standing 128 mmHg BP Diastolic Standing 72 mmHg Respiratory Rate 18 /min BMI (Body Mass Index) 29.8 kg/m2 01/25/2014 Height 58.25 inches 4'10.25" Weight 144.00 lb with out shoes Heart Rate 76 /min BP Systolic 136 mmHg Ra reg cuff BP Diastolic 70 mmHg Ra reg cuff BP Systolic Sitting 148 mmHg La reg cuff BP Diastolic Sitting 70 mmHg La reg cuff BP Systolic Standing 156 mmHg La reg cuff BP Diastolic Standing 80 mmHg La reg cuff Respiratory Rate 16 /min BMI (Body Mass Index) 29.8 kg/m2 01/22/2014 Weight 145.25 lb Heart Rate 73 /min BP Systolic Sitting 138 mmHg BP Diastolic Sitting 70 mmHg Body Temperature 97.6 F O2 % BldC Oximetry 93 % 10/27/2013 Weight 139.25 lb Heart Rate 68 /min BP Systolic Sitting 128 mmHg BP Diastolic Sitting 68 mmHg 08/27/2013 Weight 134.00 lb Heart Rate 72 /min BP Systolic 130 mmHg BP Diastolic 70 mmHg Respiratory Rate 20 /min Body Temperature 97.2 F 07/30/2013 Weight 139.50 lb Heart Rate 128 /min increased to 140 with walking BP Systolic Sitting 118 mmHg BP Diastolic Sitting 64 mmHg Respiratory Rate 20 /min Body Temperature 99.1 F O2 % BldC Oximetry 98 % dropped to 96 with walking Peak Flow Meter 190 190; 180; 220 03/10/2012 Height 59 inches 4'11" Weight 145.00 lb Heart Rate 84 /min BP Systolic Sitting 124 mmHg BP Diastolic Sitting 68 mmHg Body Temperature 97.7 F BMI (Body Mass Index) 29.3 kg/m2 05/22/2011 Height 59 inches 4'11" Weight 146.00 lb Heart Rate 70 /min BP Systolic Sitting 130 mmHg BP Diastolic Sitting 82 mmHg BMI (Body Mass Index) 29.5 kg/m2 04/19/2011 Height 59 inches 4'11" Weight 146.00 lb Heart Rate 64 /min BP Systolic Sitting 132 mmHg BP Diastolic Sitting 62 mmHg BMI (Body Mass Index) 29.5 kg/m2 10/24/2010 Height 59 inches 4'11" Weight 150.00 lb Heart Rate 72 /min BP Systolic Sitting 98 mmHg BP Diastolic Sitting 64 mmHg BMI (Body Mass Index) 30.3 kg/m2 10/05/2010 Height 59 inches 4'11" Weight 152.00 lb Heart Rate 72 /min BP Systolic Sitting 132 mmHg L BP Diastolic Sitting 70 mmHg L Body Temperature 99.3 F BMI (Body Mass Index) 30.7 kg/m2 05/10/2010 Weight 153.00 lb Heart Rate 86 /min BP Systolic 126 mmHg BP Diastolic 70 mmHg 01/18/2010 Weight 150.00 lb Heart Rate 68 /min BP Systolic 110 mmHg BP Diastolic 80 mmHg Results Test Date Test Result H/L Range Note Lipid Profile (Trig/Chol/HDL) 02/05/2018 Triglycerides 160 mg/dL 1 Cholesterol 160 mg/dL 2 HDL Cholesterol 37.4 mg/dL 3 LDL Cholesterol 91 mg/dL 4 Comp Metabolic Panel 02/05/2018 Sodium 137 mmol/L 135-145 Potassium 4.5 mmol/L 3.5-5.0 Chloride 105 mmol/L 101-111 Co2 Carbon Dioxide 24 mmol/L 22-32 Anion Gap 8 mmol/L 2-11 Glucose 101 mg/dL High 70-100 Blood Urea Nitrogen 30 mg/dL High 6-24 Creatinine 1.40 mg/dL High 0.51-0.95 BUN/Creatinine Ratio 21.4 High 8-20 Calcium 9.4 mg/dL 8.6-10.3 Total Protein 7.4 g/dL 6.4-8.9 Albumin 4.1 g/dL 3.2-5.2 Globulin 3.3 g/dL 2-4 Albumin/Globulin Ratio 1.2 1-3 Total Bilirubin 0.40 mg/dL 0.2-1.0 Alkaline Phosphatase 55 U/L 34-104 Alt 21 U/L 7-52 Ast 22 U/L 13-39 Egfr Non- 35.6 >60 Egfr 43.0 >60 5 Basic Metabolic Panel 10/29/2017 Sodium 133 mmol/L Low 135-145 Potassium 4.7 mmol/L 3.5-5.0 Chloride 100 mmol/L Low 101-111 Co2 Carbon Dioxide 23 mmol/L 22-32 Anion Gap 10 mmol/L 2-11 Glucose 93 mg/dL 70-100 Blood Urea Nitrogen 25 mg/dL High 6-24 Creatinine 1.20 mg/dL High 0.51-0.95 BUN/Creatinine Ratio 20.8 High 8-20 Calcium 9.1 mg/dL 8.6-10.3 Egfr Non- 42.6 >60 Egfr 51.5 >60 6 CBC No Diff 08/20/2017 White Blood Count 6.4 10^3/uL 3.5-10.8 Red Blood Count 3.93 10^6/uL Low 4.0-5.4 Hemoglobin 12.0 g/dL 12.0-16.0 Hematocrit 35 % 35-47 Mean Corpuscular Volume 88 fL 80-97 Mean Corpuscular Hemoglobin 31 pg 27-31 Mean Corpuscular HGB Conc 35 g/dL 31-36 Red Cell Distribution Width 14 % 10.5-15 Platelet Count 273 10^3/uL 150-450 Mean Platelet Volume 7.2 um3 Low 7.4-10.4 Comp Metabolic Panel 08/20/2017 Sodium 126 mmol/L Low 139-145 Potassium 4.4 mmol/L 3.5-5.0 Chloride 92 mmol/L Low 101-111 Co2 Carbon Dioxide 23 mmol/L 22-32 Anion Gap 11 mmol/L 2-11 Glucose 93 mg/dL 70-100 Blood Urea Nitrogen 24 mg/dL 6-24 Creatinine 1.37 mg/dL High 0.51-0.95 BUN/Creatinine Ratio 17.5 8-20 Calcium 9.6 mg/dL 8.6-10.3 Total Protein 7.9 g/dL 6.4-8.9 Albumin 3.9 g/dL 3.2-5.2 Globulin 4.0 g/dL 2-4 Albumin/Globulin Ratio 1.0 1-3 Total Bilirubin 0.40 mg/dL 0.2-1.0 Alkaline Phosphatase 51 U/L 34-104 Alt 19 U/L 7-52 Ast 25 U/L 13-39 Egfr Non- 36.6 >60 Egfr 47.0 >60 7 Urinalysis Profile 08/20/2017 Urine Color Yellow Urine Appearance Clear Urine Specific [place] 1.009 Low 1.010-1.030 Urine pH 5.0 5-9 Urine Urobilinogen Negative Negative Urine Ketones Negative Negative Urine Protein 1+(30 mg/dL) Negative Urine Leukocytes Negative Negative Urine Blood Negative Negative Urine Nitrite Negative Negative Urine Bilirubin Negative Negative Urine Glucose Negative Negative Urine White Blood Cell Trace(0-5/hpf) Absent Urine Red Blood Cell Absent Absent Urine Bacteria 1+ Absent Urine Squamous Epithelial Cell Present Absent Laboratory test finding 08/20/2017 TSH (Thyroid Stim Horm) 2.29 mcIU/mL 0.34-5.60 Free T4 (Free Thyroxine) 1.04 ng/dL 0.61-1.12 Urine Culture And Sensitivities 08/20/2017 Urine Culture SEE RESULT BELOW 8 Lipid Profile (Trig/Chol/HDL) 01/23/2017 Triglycerides 240 mg/dL 9 Cholesterol 215 mg/dL 10 HDL Cholesterol 38.9 mg/dL 11 LDL Cholesterol 128 mg/dL 12 Comp Metabolic Panel 01/23/2017 Sodium 133 mmol/L 133-145 Potassium 4.4 mmol/L 3.5-5.0 Chloride 100 mmol/L Low 101-111 Co2 Carbon Dioxide 27 mmol/L 22-32 Anion Gap 6 mmol/L 2-11 Glucose 106 mg/dL High 70-100 Blood Urea Nitrogen 26 mg/dL High 6-24 Creatinine 1.38 mg/dL High 0.51-0.95 BUN/Creatinine Ratio 18.8 8-20 Calcium 9.4 mg/dL 8.6-10.3 Total Protein 7.4 g/dL 6.4-8.9 Albumin 3.9 g/dL 3.2-5.2 Globulin 3.5 g/dL 2-4 Albumin/Globulin Ratio 1.1 1-3 Total Bilirubin 0.40 mg/dL 0.2-1.0 Alkaline Phosphatase 47 U/L 34-104 Alt 20 U/L 7-52 Ast 22 U/L 13-39 Egfr Non- 36.3 >60 Egfr 46.6 >60 13 CBC Auto Diff 01/23/2017 White Blood Count 6.9 10^3/uL 3.5-10.8 Red Blood Count 3.80 10^6/uL Low 4.0-5.4 Hemoglobin 11.4 g/dL Low 12.0-16.0 Hematocrit 34 % Low 35-47 Mean Corpuscular Volume 90 fL 80-97 Mean Corpuscular Hemoglobin 30 pg 27-31 Mean Corpuscular HGB Conc 33 g/dL 31-36 Red Cell Distribution Width 14 % 10.5-15 Platelet Count 276 10^3/uL 150-450 Mean Platelet Volume 8 um3 7.4-10.4 Abs Neutrophils 4.1 10^3/uL 1.5-7.7 Abs Lymphocytes 1.8 10^3/uL 1.0-4.8 Abs Monocytes 0.7 10^3/uL 0-0.8 Abs Eosinophils 0.3 10^3/uL 0-0.6 Abs Basophils 0 10^3/uL 0-0.2 Abs Nucleated RBC 0.01 10^3/uL Granulocyte % 58.9 % 38-83 Lymphocyte % 25.8 % 25-47 Monocyte % 10.1 % High 1-9 Eosinophil % 4.5 % 0-6 Basophil % 0.7 % 0-2 Nucleated Red Blood Cells % 0.1 Iron & Iron Binding Capacity 01/23/2017 Iron 88 g/dL 50-212 Unsaturated Iron Binding 219 g/dL Total Iron Binding Capacity 307 g/dL 250-450 % Iron Saturation 29 % 15-55 Lipid Profile (Trig/Chol/HDL) 01/18/2016 Triglycerides 217 mg/dL 14 Cholesterol 201 mg/dL 15 HDL Cholesterol 35.2 mg/dL 16 LDL Cholesterol 122 mg/dL 17 Comp Metabolic Panel 01/18/2016 Sodium 140 mmol/L 133-145 Potassium 4.9 mmol/L 3.5-5.0 Chloride 102 mmol/L 101-111 Co2 Carbon Dioxide 28 mmol/L 22-32 Anion Gap 10 mmol/L 2-11 Glucose 97 mg/dL 70-100 Blood Urea Nitrogen 20 mg/dL 6-24 Creatinine 1.18 mg/dL High 0.51-0.95 BUN/Creatinine Ratio 16.9 8-20 Calcium 9.3 mg/dL 8.6-10.3 Total Protein 7.3 g/dL 6.4-8.9 Albumin 3.7 g/dL 3.2-5.2 Globulin 3.6 g/dL 2-4 Albumin/Globulin Ratio 1.0 1-3 Total Bilirubin 0.30 mg/dL 0.2-1.0 Alkaline Phosphatase 46 U/L 34-104 Alt 19 U/L 7-52 Ast 20 U/L 13-39 Egfr Non- 43.5 >60 Egfr 56.0 >60 18 CBC Auto Diff 01/18/2016 White Blood Count 7.3 10^3/uL 3.5-10.8 Red Blood Count 3.81 10^6/uL Low 4.0-5.4 Hemoglobin 11.4 g/dL Low 12.0-16.0 Hematocrit 34 % Low 35-47 Mean Corpuscular Volume 89 fL 80-97 Mean Corpuscular Hemoglobin 30 pg 27-31 Mean Corpuscular HGB Conc 34 g/dL 31-36 Red Cell Distribution Width 15 % 10.5-15 Platelet Count 249 10^3/uL 150-450 Mean Platelet Volume 8 um3 7.4-10.4 Abs Neutrophils 4.3 10^3/uL 1.5-7.7 Abs Lymphocytes 1.8 10^3/uL 1.0-4.8 Abs Monocytes 0.8 10^3/uL 0-0.8 Abs Eosinophils 0.3 10^3/uL 0-0.6 Abs Basophils 0.1 10^3/uL 0-0.2 Abs Nucleated RBC 0 10^3/uL Granulocyte % 58.3 % 38-83 Lymphocyte % 24.7 % Low 25-47 Monocyte % 10.7 % High 1-9 Eosinophil % 4.6 % 0-6 Basophil % 1.7 % 0-2 Nucleated Red Blood Cells % 0 Laboratory test finding 01/18/2016 Ferritin 127.2 ng/mL 11-307 Iron & Iron Binding Capacity 01/18/2016 Iron 70 g/dL 50-212 Unsaturated Iron Binding 241 g/dL Total Iron Binding Capacity 311 g/dL 250-450 % Iron Saturation 23 % 15-55 Basic Metabolic Panel 08/30/2015 Sodium 133 mmol/L 133-145 Potassium 4.6 mmol/L 3.5-5.0 Chloride 101 mmol/L 101-111 Co2 Carbon Dioxide 25 mmol/L 22-32 Anion Gap 7 mmol/L 2-11 Glucose 99 mg/dL 70-100 Blood Urea Nitrogen 28 mg/dL High 6-24 Creatinine 1.20 mg/dL High 0.51-0.95 BUN/Creatinine Ratio 23.3 High 8-20 Calcium 9.2 mg/dL 8.6-10.3 Egfr Non- 42.8 >60 Egfr 55.0 >60 19 CBC Auto Diff 08/30/2015 White Blood Count 7.2 10^3/uL 3.5-10.8 Red Blood Count 3.52 10^6/uL Low 4.0-5.4 Hemoglobin 11.0 g/dL Low 12.0-16.0 Hematocrit 32 % Low 35-47 Mean Corpuscular Volume 92 fL 80-97 Mean Corpuscular Hemoglobin 31 pg 27-31 Mean Corpuscular HGB Conc 34 g/dL 31-36 Red Cell Distribution Width 15 % 10.5-15 Platelet Count 249 10^3/uL 150-450 Mean Platelet Volume 8 um3 7.4-10.4 Abs Neutrophils 4.1 10^3/uL 1.5-7.7 Abs Lymphocytes 2.0 10^3/uL 1.0-4.8 Abs Monocytes 0.8 10^3/uL 0-0.8 Abs Eosinophils 0.3 10^3/uL 0-0.6 Abs Basophils 0.1 10^3/uL 0-0.2 Abs Nucleated RBC 0.01 10^3/uL Granulocyte % 56.7 % 38-83 Lymphocyte % 27.6 % 25-47 Monocyte % 10.5 % High 1-9 Eosinophil % 4.4 % 0-6 Basophil % 0.8 % 0-2 Nucleated Red Blood Cells % 0.1 Laboratory test finding 08/30/2015 Vitamin D Total 25(Oh) 41.5 ng/mL 30- 50 20 Vitamin B12 862 pg/mL 180-914 21 Magnesium 1.7 mg/dL Low 1.9-2.7 22 Lipid Profile (Trig/Chol/HDL) 02/18/2015 Triglycerides 281 mg/dL 23 Cholesterol 201 mg/dL 24 HDL Cholesterol 38.0 mg/dL 25 LDL Cholesterol 107 mg/dL 26 Basic Metabolic Panel 02/18/2015 Sodium 135 mmol/L 133-145 Potassium 4.5 mmol/L 3.5-5.0 Chloride 102 mmol/L 101-111 Co2 Carbon Dioxide 25 mmol/L 22-32 Anion Gap 8 mmol/L 2-11 Glucose 100 mg/dL 70-100 Blood Urea Nitrogen 24 mg/dL 6-24 Creatinine 1.20 mg/dL High 0.51-0.95 BUN/Creatinine Ratio 20.0 8-20 Calcium 10.0 mg/dL 8.6-10.3 Egfr Non- 42.8 >60 Egfr 55.0 >60 27 Laboratory test finding 02/18/2015 Ast (Sgot) 26 U/L 13-39 CBC Auto Diff 08/23/2014 White Blood Count 7.3 10^3/uL 4.8-10.8 Red Blood Count 3.57 10^6/uL Low 4.0-5.4 Hemoglobin 11.2 g/dL Low 12.0-16.0 Hematocrit 33 % Low 35-47 Mean Corpuscular Volume 92 fL 80-97 Mean Corpuscular Hemoglobin 31 pg 27-31 Mean Corpuscular HGB Conc 34 g/dL 31-36 Red Cell Distribution Width 14 % 10.5-15 Platelet Count 267 10^3/uL 150-450 Mean Platelet Volume 8 um3 7.4-10.4 Abs Neutrophils 4.2 10^3/uL 1.5-7.7 Abs Lymphocytes 1.8 10^3/uL 1.0-4.8 Abs Monocytes 0.8 10^3/uL 0-0.8 Abs Eosinophils 0.4 10^3/uL 0-0.6 Abs Basophils 0.1 10^3/uL 0-0.2 Abs Nucleated RBC 0.01 10^3/uL Granulocyte % 57.7 % 38-83 Lymphocyte % 25.2 % 25-47 Monocyte % 11.1 % High 1-9 Eosinophil % 5.2 % 0-6 Basophil % 0.8 % 0-2 Nucleated Red Blood Cells % 0.1 Comp Metabolic Panel 08/23/2014 Sodium 132 mmol/L Low 133-145 Potassium 4.5 mmol/L 3.5-5.0 Chloride 101 mmol/L 101-111 Co2 Carbon Dioxide 25 mmol/L 22-32 Anion Gap 6 mmol/L 2-11 Glucose 95 mg/dL 70-100 Blood Urea Nitrogen 34 mg/dL High 6-24 Creatinine 1.29 mg/dL High 0.51-0.95 BUN/Creatinine Ratio 26.4 High 8-20 Calcium 9.2 mg/dL 8.6-10.3 Total Protein 7.1 g/dL 6.4-8.9 Albumin 3.9 g/dL 3.2-5.2 Globulin 3.2 g/dL 2-4 Albumin/Globulin Ratio 1.2 1-3 Total Bilirubin 0.30 mg/dL 0.2-1.0 Alkaline Phosphatase 41 U/L 34-104 Alt 15 U/L 7-52 Ast 19 U/L 13-39 Egfr Non- 39.5 >60 Egfr 50.8 >60 28 Laboratory test finding 08/23/2014 Ferritin 67.5 ng/mL 11-307 Iron & Iron Binding Capacity 08/23/2014 Iron 86 g/dL 50-212 Unsaturated Iron Binding 242 g/dL Total Iron Binding Capacity 328 g/dL 250-450 % Iron Saturation 26 % 15-55 Lipid Profile (Trig/Chol/HDL) 02/15/2014 Triglycerides 144 mg/dL 29, 30 Cholesterol 173 mg/dL 29, 31 HDL Cholesterol 39.3 mg/dL 29, 32 LDL Cholesterol 105 mg/dL 29, 33 CBC Auto Diff 02/15/2014 White Blood Count 7.6 10^3/uL 4.8-10.8 29 Red Blood Count 3.32 10^6/uL Low 4.0-5.4 29 Hemoglobin 10.3 g/dL Low 12.0-16.0 29 Hematocrit 30 % Low 35-47 29 Mean Corpuscular Volume 92 fL 80-97 29 Mean Corpuscular Hemoglobin 31 pg 27-31 29 Mean Corpuscular HGB Conc 34 g/dL 31-36 29 Red Cell Distribution Width 14 % 10.5-15 29 Platelet Count 299 10^3/uL 150-450 29 Mean Platelet Volume 8 um3 7.4-10.4 29 Abs Neutrophils 4.4 10^3/uL 1.5-7.7 29 Abs Lymphocytes 1.9 10^3/uL 1.0-4.8 29 Abs Monocytes 0.8 10^3/uL 0-0.8 29 Abs Eosinophils 0.4 10^3/uL 0-0.6 29 Abs Basophils 0.1 10^3/uL 0-0.2 29 Abs Nucleated RBC 0 10^3/uL 29 Granulocyte % 57.9 % 38-83 29 Lymphocyte % 25.4 % 25-47 29 Monocyte % 10.6 % High 1-9 29 Eosinophil % 5.3 % 0-6 29 Basophil % 0.8 % 0-2 29 Nucleated Red Blood Cells % 0 29 Comp Metabolic Panel 02/15/2014 Sodium 134 mmol/L 133-145 29 Potassium 4.6 mmol/L 3.7-5.6 29 Chloride 101 mmol/L 101-111 29 Co2 Carbon Dioxide 28 mmol/L 22-32 29 Anion Gap 5 mmol/L 2-11 29 Glucose 97 mg/dL 70-100 29 Blood Urea Nitrogen 30 mg/dL High 6-24 29 Creatinine 1.23 mg/dL High 0.51-0.95 29 BUN/Creatinine Ratio 24.4 High 8-20 29 Calcium 9.6 mg/dL 8.6-10.3 29 Total Protein 7.2 g/dL 6.4-8.9 29 Albumin 3.8 g/dL 3.2-5.2 29 Globulin 3.4 g/dL 2-4 29 Albumin/Globulin Ratio 1.1 1-3 29 Total Bilirubin 0.20 mg/dL 0.2-1.0 29 Alkaline Phosphatase 41 U/L 34-104 29 Alt 20 U/L 7-52 29 Ast 23 U/L 13-39 29 Egfr Non- 41.7 >60 29 Egfr 53.6 >60 29, 34 CBC With Manual Diff 10/27/2013 White Blood Count 7.8 10^3/uL 4.8-10.8 Red Blood Count 3.40 10^6/uL Low 4.0-5.4 Hemoglobin 10.2 g/dL Low 12.0-16.0 Hematocrit 30 % Low 35-47 Mean Corpuscular Volume 87 fL 80-97 Mean Corpuscular Hemoglobin 30 pg 27-31 Mean Corpuscular HGB Conc 35 g/dL 31-36 Red Cell Distribution Width 20 % High 10.5-15 Platelet Count 258 10^3/uL 150-450 Mean Platelet Volume 8 um3 7.4-10.4 Abs Neutrophils 4.6 10^3/uL 1.5-7.7 Abs Lymphocytes 1.9 10^3/uL 1.0-4.8 Abs Monocytes 0.8 10^3/uL 0-0.8 Abs Eosinophils 0.4 10^3/uL 0-0.6 Abs Basophils 0.1 10^3/uL 0-0.2 Abs Nucleated RBC 0.01 10^3/uL Neutrophil % 53 % 38-83 Band % 2 % 0-8 Lymphocytes % 29 % 25-47 Monocytes % 7 % 0-13 Eosinophils % 6 % 0-6 Basophil % 1 % 0-2 Reactive Lymph % 2 % 0-6 RBC Morphology Normal Normal Comp Metabolic Panel 08/28/2013 Sodium 135 mmol/L 133-145 Potassium 4.1 mmol/L 3.7-5.6 Chloride 101 mmol/L 101-111 Co2 Carbon Dioxide 26 mmol/L 22-32 Anion Gap 8 mmol/L 2-11 Glucose 95 mg/dL 70-100 Blood Urea Nitrogen 30 mg/dL High 6-24 Creatinine 1.41 mg/dL High 0.51-0.95 BUN/Creatinine Ratio 21.3 High 8-20 Calcium 9.0 mg/dL 8.6-10.3 Total Protein 6.7 g/dL 6.4-8.9 Albumin 3.7 g/dL 3.2-5.2 Globulin 3.0 g/dL 2-4 Albumin/Globulin Ratio 1.2 1-3 Total Bilirubin 0.30 mg/dL 0.2-1.0 Alkaline Phosphatase 59 U/L 34-104 Alt 14 U/L 7-52 Ast 18 U/L 13-39 Egfr Non- 35.7 >60 Egfr 45.9 >60 35 Laboratory test finding 08/28/2013 LDH 148 U/L 140-271 Iron & Iron Binding Capacity 08/28/2013 Iron 37 g/dL Low 50-212 Unsaturated Iron Binding 349 g/dL Total Iron Binding Capacity 386 g/dL 250-450 % Iron Saturation 10 % Low 15-55 Laboratory test finding 08/28/2013 Ferritin 30.6 ng/mL 11-307 Erythropoietin 15.7 mIU/mL 2.6 - 18.5 36 Laboratory test finding 08/09/2013 Lactic Acid 0.9 mmol/L 0.5-2.2 CBC Auto Diff 08/09/2013 White Blood Count 11.7 10^3/uL High 4.8-10.8 Red Blood Count 3.62 10^6/uL Low 4.0-5.4 Hemoglobin 9.4 g/dL Low 12.0-16.0 Hematocrit 29 % Low 35-47 Mean Corpuscular Volume 81 fL 80-97 Mean Corpuscular Hemoglobin 26 pg Low 27-31 Mean Corpuscular HGB Conc 32 g/dL 31-36 Red Cell Distribution Width 19 % High 10.5-15 Platelet Count 329 10^3/uL 150-450 Mean Platelet Volume 8 um3 7.4-10.4 Abs Neutrophils 10.8 10^3/uL High 1.5-7.7 Abs Lymphocytes 0.5 10^3/uL Low 1.0-4.8 Abs Monocytes 0.3 10^3/uL 0-0.8 Abs Eosinophils 0 10^3/uL 0-0.6 Abs Basophils 0.1 10^3/uL 0-0.2 Abs Nucleated RBC 0 10^3/uL Granulocyte % 92.7 % High 38-83 Lymphocyte % 4.1 % Low 25-47 Monocyte % 2.4 % 1-9 Eosinophil % 0.2 % 0-6 Basophil % 0.6 % 0-2 Nucleated Red Blood Cells % 0 Laboratory test finding 08/09/2013 B Type Natriuretic Peptide 780 pg/mL 37 Cell Morphology 08/09/2013 Hypochromasia 1+ Schistocytes 1+ Comp Metabolic Panel 08/09/2013 Sodium 132 mmol/L Low 133-145 Potassium 4.5 mmol/L 3.7-5.6 Chloride 97 mmol/L Low 101-111 Co2 Carbon Dioxide 25 mmol/L 22-32 Anion Gap 10 mmol/L 2-11 Glucose 152 mg/dL High 70-100 Blood Urea Nitrogen 34 mg/dL High 6-24 Creatinine 1.15 mg/dL High 0.51-0.95 BUN/Creatinine Ratio 29.6 High 8-20 Calcium 9.9 mg/dL 8.6-10.3 Total Protein 7.7 g/dL 6.4-8.9 Albumin 4.1 g/dL 3.2-5.2 Globulin 3.6 g/dL 2-4 Albumin/Globulin Ratio 1.1 1-3 Total Bilirubin 0.80 mg/dL 0.2-1.0 Alkaline Phosphatase 189 U/L High 34-104 Alt 384 U/L High 7-52 Ast 551 U/L High 13-39 Egfr Non- 45.2 >60 Egfr 58.1 >60 38 Laboratory test finding 08/09/2013 Magnesium 1.6 mg/dL Low 1.9-2.7 Lipase 26 U/L 11.0-82.0 Creatine Kinase 40 U/L 10-223 Troponin I 0.03 ng/mL <0.03 39 C Reactive Protein 11.61 mg/L High < 5.00 40 Hemoglobin/Hematacrit 08/07/2013 Hemoglobin 8.5 g/dL Low 12.0-16.0 Hematocrit 26 % Low 35-47 Basic Metabolic Panel 08/07/2013 Sodium 133 mmol/L 133-145 Potassium 4.7 mmol/L 3.7-5.6 Chloride 101 mmol/L 101-111 Co2 Carbon Dioxide 25 mmol/L 22-32 Anion Gap 7 mmol/L 2-11 Glucose 96 mg/dL 70-100 Blood Urea Nitrogen 33 mg/dL High 6-24 Creatinine 1.18 mg/dL High 0.51-0.95 BUN/Creatinine Ratio 28.0 High 8-20 Calcium 8.4 mg/dL Low 8.6-10.3 Egfr Non- 43.9 >60 Egfr 56.4 >60 41 Laboratory test finding 07/31/2013 Lactic Acid 1.0 mmol/L 0.5-2.2 CBC Auto Diff 07/31/2013 White Blood Count 8.7 10^3/uL 4.8-10.8 Red Blood Count 2.47 10^6/uL Low 4.0-5.4 Hemoglobin 6.1 g/dL Low 12.0-16.0 42 Hematocrit 19 % Low 35-47 43 Mean Corpuscular Volume 76 fL Low 80-97 Mean Corpuscular Hemoglobin 25 pg Low 27-31 Mean Corpuscular HGB Conc 33 g/dL 31-36 Red Cell Distribution Width 16 % High 10.5-15 Platelet Count 337 10^3/uL 150-450 Mean Platelet Volume 8 um3 7.4-10.4 Abs Neutrophils 5.3 10^3/uL 1.5-7.7 Abs Lymphocytes 2.2 10^3/uL 1.0-4.8 Abs Monocytes 0.9 10^3/uL High 0-0.8 Abs Eosinophils 0.3 10^3/uL 0-0.6 Abs Basophils 0.1 10^3/uL 0-0.2 Abs Nucleated RBC 0.01 10^3/uL Inr/Protime 07/31/2013 Inr 1.18 High 0.85-1.06 Laboratory test finding 07/31/2013 Activated Partial 28.0 seconds 24.0- 36.1 Thrombo Time Comp Metabolic Panel 07/31/2013 Sodium 130 mmol/L Low 133-145 Potassium 4.8 mmol/L 3.7-5.6 Chloride 99 mmol/L Low 101-111 Co2 Carbon Dioxide 22 mmol/L 22-32 Anion Gap 9 mmol/L 2-11 Glucose 107 mg/dL High 70-100 Blood Urea Nitrogen 39 mg/dL High 6-24 Creatinine 1.47 mg/dL High 0.51-0.95 BUN/Creatinine Ratio 26.5 High 8-20 Calcium 9.2 mg/dL 8.6-10.3 Total Protein 7.3 g/dL 6.4-8.9 Albumin 4.1 g/dL 3.2-5.2 Globulin 3.2 g/dL 2-4 Albumin/Globulin Ratio 1.3 1-3 Total Bilirubin 0.20 mg/dL 0.2-1.0 Alkaline Phosphatase 63 U/L 34-104 Alt 49 U/L 7-52 Ast 49 U/L High 13-39 Egfr Non- 34.0 >60 Egfr 43.8 >60 44 Laboratory test finding 07/31/2013 Troponin I 0.47 ng/mL <0.03 45 C Reactive Protein 8.78 mg/L High < 5.00 46 Type & Screen 07/31/2013 Patient Blood Type A Positive Antibody Screen NEGATIVE Laboratory test finding 07/30/2013 Pathologist Review (SEE NOTE) 47, 48 Manual Differential 07/30/2013 Neutrophil % 66 % 38-83 47 Band % 1 % 0-8 47 Lymphocytes % 16 % Low 25-47 47 Monocytes % 16 % High 0-13 47 Basophil % 1 % 0-2 47 Microcytosis 1+ 47 Hypochromasia 2+ 47 Polychromasia 1+ 47 Elliptocyte 1+ 47 Comp Metabolic Panel 07/30/2013 Sodium 132 mmol/L Low 133-145 47 Potassium 4.9 mmol/L 3.7-5.6 47 Chloride 101 mmol/L 101-111 47 Co2 Carbon Dioxide 21 mmol/L Low 22-32 47 Anion Gap 10 mmol/L 2-11 47 Glucose 95 mg/dL 70-100 47 Blood Urea Nitrogen 36 mg/dL High 6-24 47 Creatinine 1.44 mg/dL High 0.51-0.95 47 BUN/Creatinine Ratio 25.0 High 8-20 47 Calcium 9.0 mg/dL 8.6-10.3 47 Total Protein 7.1 g/dL 6.4-8.9 47 Albumin 4.0 g/dL 3.2-5.2 47 Globulin 3.1 g/dL 2-4 47 Albumin/Globulin Ratio 1.3 1-3 47 Total Bilirubin 0.30 mg/dL 0.2-1.0 47 Alkaline Phosphatase 59 U/L 34-104 47 Alt 57 U/L High 7-52 47 Ast 65 U/L High 13-39 47 Egfr Non- 34.8 >60 47 Egfr 44.8 >60 47, 49 Laboratory test finding 07/30/2013 Ferritin < 10.0 ng/mL Low 11-307 47, 50 TSH (Thyroid Stimulating Horm) 2.65 IU/mL 0.34-5.60 47, 51 CBC Auto Diff 07/30/2013 White Blood Count 8.6 10^3/uL 4.8-10.8 47 Red Blood Count 2.41 10^6/uL Low 4.0-5.4 47 Hemoglobin 5.8 g/dL Low 12.0-16.0 47, 52 Hematocrit 18 % Low 35-47 47 Mean Corpuscular Volume 77 fL Low 80-97 47 Mean Corpuscular Hemoglobin 24 pg Low 27-31 47 Mean Corpuscular HGB Conc 31 g/dL 31-36 47 Red Cell Distribution Width 16 % High 10.5-15 47 Platelet Count 338 10^3/uL 150-450 47 Mean Platelet Volume 8 um3 7.4-10.4 47 Abs Neutrophils 5.6 10^3/uL 1.5-7.7 47 Abs Lymphocytes 1.9 10^3/uL 1.0-4.8 47 Abs Monocytes 0.9 10^3/uL High 0-0.8 47 Abs Eosinophils 0.2 10^3/uL 0-0.6 47 Abs Basophils 0.1 10^3/uL 0-0.2 47 Abs Nucleated RBC 0 10^3/uL 47 Throat-Beta Strept 03/08/2012 Throat Beta Strep Culture (SEE NOTE) 53 Lipid Profile 02/06/2012 Triglycerides 178 mg/dL 40-200 (Trig/Chol/HDL) Cholesterol 205 mg/dL High Less than 200 54 HDL Cholesterol 52 mg/dL 40-60 55 Cholesterol/HDL Ratio 3.9 AVERAGE 1-4.44 LDL Cholesterol 117.4 mg/dL High Less Than 100 Laboratory test finding 02/06/2012 Ferritin 11 NG/ML 11-307 56 LDH 131 U/L 95-185 57 CBC With Manual Diff 02/06/2012 White Blood Count 6.6 10^3/uL 4.8-10.8 Red Blood Count 3.25 10^6/uL Low 4.0-5.4 Hemoglobin 9.9 g/dL Low 12.0-16.0 Hematocrit 29 % Low 35-47 Mean Corpuscular Volume 90 fL 80-97 Mean Corpuscular Hemoglobin 30 pg 27-31 Mean Corpuscular HGB Conc 34 g/dL 31-36 Red Cell Distribution Width 15 % 10.5-15 Platelet Count 284 10^3/uL 150-450 Mean Platelet Volume 9 um3 7.4-10.4 Abs Neutrophils 3.6 10^3/uL 1.5-7.7 Abs Lymphocytes 1.7 10^3/uL 1.0-4.8 Abs Monocytes 0.7 10^3/uL 0-0.8 Abs Eosinophils 0.5 10^3/uL 0-0.6 Abs Basophils 0.1 10^3/uL 0-0.2 Abs Nucleated RBC 0.01 10^3/uL Neutrophil % 48.0 % 38-83 Band % 0 % 0-8 Lymphocytes % 32.0 % 25-47 Monocytes % 6.0 % 0-13 Eosinophils % 9.0 % High 0-6 Basophil % 0 % 0-2 Reactive Lymph % 5.0 % 0-6 Metamyelocytes % 0 % 0-2 Myelocytes % 0 % 0-1 Promyelocytes % 0 % Blast % 0 % RBC Morphology Normal Normal Comp Metabolic Panel 05/08/2011 Sodium 134 mmol/L Low 135-145 Potassium 4.3 mmol/L 3.5-5.0 Chloride 98 mmol/L Low 101-111 Co2 (Carbon Dioxide) 28.0 mmol/L 22-32 Anion Gap 8.0 mmol/L 2-11 58 Glucose 109 mg/dL High 70-100 BUN 31 mg/dL High 6-24 Creatinine 1.3 mg/dL 0.50-1.40 One Over Creatinine 0.76 BUN/Creatinine Ratio 23.8 High 8-20 Calcium 9.4 mg/dL 8.1-9.9 Total Protein 6.9 GM/DL 6.2-8.1 Albumin 3.8 GM/DL 3.2-5.2 Globulin 3.1 GM/DL 2-4 Albumin/Globulin Ratio 1.2 1-3 Bilirubin Total 0.6 mg/dL 0.4-1.5 59 Alkaline Phosphatase 39 U/L 30-110 Alt (SGPT) 19 U/L 14-54 Ast (Sgot) 23 U/L 12-42 eGFR Non- 39.4 > 60 eGFR 50.7 > 60 60 Laboratory test finding 05/08/2011 TSH 3.02 MIU/ML 0.34-5.60 Vitamin D, 25 Hydroxy 05/08/2011 25-Hydroxy Vitamin D2 <4.0 ng/mL () 25-Hydroxy Vitamin D3 34 ng/mL () 25-Hydroxy Vitamin D Total 34 ng/mL () 61 Vitamin D 1,25 And Vitamin 05/08/2011 Vitamin D, 1,25 Dihydroxy 34 pg/mL 18-78 62 D,2 Lipid Profile 05/08/2011 Triglyceride 175 mg/dL 40-200 (Trig/Chol/HDL) Cholesterol 198 mg/dL Less Than 200 63 High Density Lipoprotein 43 mg/dL 40-60 64 Cholesterol/HDL Ratio 4.60 AVERAGE High 1-4.44 Low Density Lipoprotein 120 mg/dL High Less Than 100 65 CBC With Manual Diff 05/08/2011 White Blood Count 5.6 CUMM 4.8-10.8 Red Cell Count 3.24 CUMM Low 4.2-5.4 Hemoglobin 9.8 g/dL Low 12.0-16.0 Hematocrit 29 % Low 35-47 Mean Corpuscular Volume 89 um3 79-97 Mean Corpuscular Hemoglob 30 pg 27-31 Mean Corpuscular HGB Cone 34 g/dL 32-36 Redcell Distribution WDTH 15 % 10.5-15 Platelet Count 261 CUMM 150-450 Mean Platelet Volume 7.7 um3 7.4-10.4 Polysegmented Neutrophil 61 % 38-83 Band Neutrophil 2 % 0-8 Lymphocyte 27 % 25-47 Monocyte 5 % 0-13 Eosinophil 4 % 0-6 Basophil 1 % 0-2 Absolute Neutrophil Count 3.5 Anisocytosis SLIGHT Hypochromasia SLIGHT Laboratory test finding 05/08/2011 Ferritin 17 NG/ML 11.0-307 Vitamin B12 339 pg/mL 180-914 Laboratory test finding 10/05/2010 Genital Culture [id number] 1 Desirable: <150 Borderline High: 150-199 High: 200-499 Very High: >500 2 Desirable: <200 Borderline High: 200-239 High: >239 3 Low: <40 Desirable: 40-60 High: >60 4 Desirable: <100 Near Optimal: 100-129 Borderline High: 130-159 High: 160-189 Very High: >189 5 Because ethnic data is not always readily available, this report includes an eGFR for both -Americans and non- Americans. The National Kidney Disease Education Program (NKDEP) does not endorse the use of the MDRD equation for patients that are not between the ages of 18 and 70, are , have extremes of body size, muscle mass, or nutritional status, or are non- or non-. According to the National Kidney Foundation, irrespective of diagnosis, the stage of the disease is based on the level of kidney function: Stage Description GFR(mL/min/1.73 m(2)) 1 Kidney damage with normal or decreased GFR 90 2 Kidney damage with mild decrease in GFR 60-89 3 Moderate decrease in GFR 30-59 4 Severe decrease in GFR 15-29 5 Kidney failure <15 (or dialysis) 6 Because ethnic data is not always readily available, this report includes an eGFR for both -Americans and non- Americans. The National Kidney Disease Education Program (NKDEP) does not endorse the use of the MDRD equation for patients that are not between the ages of 18 and 70, are , have extremes of body size, muscle mass, or nutritional status, or are non- or non-. According to the National Kidney Foundation, irrespective of diagnosis, the stage of the disease is based on the level of kidney function: Stage Description GFR(mL/min/1.73 m(2)) 1 Kidney damage with normal or decreased GFR 90 2 Kidney damage with mild decrease in GFR 60-89 3 Moderate decrease in GFR 30-59 4 Severe decrease in GFR 15-29 5 Kidney failure <15 (or dialysis) 7 Because ethnic data is not always readily available, this report includes an eGFR for both -Americans and non- Americans. The National Kidney Disease Education Program (NKDEP) does not endorse the use of the MDRD equation for patients that are not between the ages of 18 and 70, are , have extremes of body size, muscle mass, or nutritional status, or are non- or non-. According to the National Kidney Foundation, irrespective of diagnosis, the stage of the disease is based on the level of kidney function: Stage Description GFR(mL/min/1.73 m(2)) 1 Kidney damage with normal or decreased GFR 90 2 Kidney damage with mild decrease in GFR 60-89 3 Moderate decrease in GFR 30-59 4 Severe decrease in GFR 15-29 5 Kidney failure <15 (or dialysis) 8 SEE RESULT BELOW Name: PEPPER ANTONIO : [address]: William Armando MD Acct: [id number] Unit: [id number] AGE: 86 Location: [place] [address] Re08/21/17 SEX: F Status: ADM Cony SPEC: [id number] BARAK: 08/20/[address]: Mynor Diaz MD REQ: [id number] RECD: 08/20/17 STATUS: SHAKEEL OLEA DR: Cynthia Cam MD _ SOURCE: URINE SPDESC: ORDERED: Urine Culture Procedure Result Reported Site Urine Culture Final 08/22/17- 0858 ML No Growth (<1,000 CFU/mL) * ML - Main Lab . END OF REPORT DEPARTMENT OF PATHOLOGY, [address] [place] [address] Selvin Ryan M.D. Director [facility] # [id number] Desirable <150 Borderline high 150-199 High 200-499 Very High >500 10 Desirable <200 Borderline high 200-239 High >239 11 Low <40 Desirable: 40-60 High: >60 12 Desirable: <100 mg/dL Near Optimal: 100-129 mg/dL Borderline High: 130-159 mg/dL High: 160-189 mg/dL Very High: >189 mg/dL 13 Because ethnic data is not always readily available, this report includes an eGFR for both -Americans and non- Americans. The National Kidney Disease Education Program (NKDEP) does not endorse the use of the MDRD equation for patients that are not between the ages of 18 and 70, are , have extremes of body size, muscle mass, or nutritional status, or are non- or non-. According to the National Kidney Foundation, irrespective of diagnosis, the stage of the disease is based on the level of kidney function: Stage Description GFR(mL/min/1.73 m(2)) 1 Kidney damage with normal or decreased GFR 90 2 Kidney damage with mild decrease in GFR 60-89 3 Moderate decrease in GFR 30-59 4 Severe decrease in GFR 15-29 5 Kidney failure <15 (or dialysis) 14 Desirable <150 Borderline high 150-199 High 200-499 Very High >500 15 Desirable <200 Borderline high 200-239 High >239 16 Low <40 Desirable: 40-60 High: >60 17 Desirable: <100 mg/dL Near Optimal: 100-129 mg/dL Borderline High: 130-159 mg/dL High: 160-189 mg/dL Very High: >189 mg/dL 18 Because ethnic data is not always readily available, this report includes an eGFR for both -Americans and non- Americans. The National Kidney Disease Education Program (NKDEP) does not endorse the use of the MDRD equation for patients that are not between the ages of 18 and 70, are , have extremes of body size, muscle mass, or nutritional status, or are non- or non-. According to the National Kidney Foundation, irrespective of diagnosis, the stage of the disease is based on the level of kidney function: Stage Description GFR(mL/min/1.73 m(2)) 1 Kidney damage with normal or decreased GFR 90 2 Kidney damage with mild decrease in GFR 60-89 3 Moderate decrease in GFR 30-59 4 Severe decrease in GFR 15-29 5 Kidney failure <15 (or dialysis) 19 Because ethnic data is not always readily available, this report includes an eGFR for both -Americans and non- Americans. The National Kidney Disease Education Program (NKDEP) does not endorse the use of the MDRD equation for patients that are not between the ages of 18 and 70, are , have extremes of body size, muscle mass, or nutritional status, or are non- or non-. According to the National Kidney Foundation, irrespective of diagnosis, the stage of the disease is based on the level of kidney function: Stage Description GFR(mL/min/1.73 m(2)) 1 Kidney damage with normal or decreased GFR 90 2 Kidney damage with mild decrease in GFR 60-89 3 Moderate decrease in GFR 30-59 4 Severe decrease in GFR 15-29 5 Kidney failure <15 (or dialysis) 20 DO THIS IN 3 MONTHS - PRIOR TO VISIT 21 Normal Range 180 to 914 Indeterminate Range 145 to 180 Deficient Range <145 22 DO THIS IN 3 MONTHS - PRIOR TO VISIT 23 Desirable <150 Borderline high 150-199 High 200-499 Very High >500 24 Desirable <200 Borderline high 200-239 High >239 25 Low <40 Desirable: 40-60 High: >60 26 Desirable: <100 mg/dL Near Optimal: 100-129 mg/dL Borderline High: 130-159 mg/dL High: 160-189 mg/dL Very High: >189 mg/dL 27 Because ethnic data is not always readily available, this report includes an eGFR for both -Americans and non- Americans. The National Kidney Disease Education Program (NKDEP) does not endorse the use of the MDRD equation for patients that are not between the ages of 18 and 70, are , have extremes of body size, muscle mass, or nutritional status, or are non- or non-. According to the National Kidney Foundation, irrespective of diagnosis, the stage of the disease is based on the level of kidney function: Stage Description GFR(mL/min/1.73 m(2)) 1 Kidney damage with normal or decreased GFR 90 2 Kidney damage with mild decrease in GFR 60-89 3 Moderate decrease in GFR 30-59 4 Severe decrease in GFR 15-29 5 Kidney failure <15 (or dialysis) 28 Because ethnic data is not always readily available, this report includes an eGFR for both -Americans and non- Americans. The National Kidney Disease Education Program (NKDEP) does not endorse the use of the MDRD equation for patients that are not between the ages of 18 and 70, are , have extremes of body size, muscle mass, or nutritional status, or are non- or non-. According to the National Kidney Foundation, irrespective of diagnosis, the stage of the disease is based on the level of kidney function: Stage Description GFR(mL/min/1.73 m(2)) 1 Kidney damage with normal or decreased GFR 90 2 Kidney damage with mild decrease in GFR 60-89 3 Moderate decrease in GFR 30-59 4 Severe decrease in GFR 15-29 5 Kidney failure <15 (or dialysis) 29 FASTING 10 HOUR 30 Desirable <150 Borderline high 150-199 High 200-499 Very High >500 31 Desirable <200 Borderline high 200-239 High >239 32 Low <40 Desirable: 40-60 High: >60 33 Desirable <100 Near Optimal 100-129 Borderline high 130-159 High 160-189 Very High >189 34 Because ethnic data is not always readily available, this report includes an eGFR for both -Americans and non- Americans. The National Kidney Disease Education Program (NKDEP) does not endorse the use of the MDRD equation for patients that are not between the ages of 18 and 70, are , have extremes of body size, muscle mass, or nutritional status, or are non- or non-. According to the National Kidney Foundation, irrespective of diagnosis, the stage of the disease is based on the level of kidney function: Stage Description GFR(mL/min/1.73 m(2)) 1 Kidney damage with normal or decreased GFR 90 2 Kidney damage with mild decrease in GFR 60-89 3 Moderate decrease in GFR 30-59 4 Severe decrease in GFR 15-29 5 Kidney failure <15 (or dialysis) 35 Because ethnic data is not always readily available, this report includes an eGFR for both -Americans and non- Americans. The National Kidney Disease Education Program (NKDEP) does not endorse the use of the MDRD equation for patients that are not between the ages of 18 and 70, are , have extremes of body size, muscle mass, or nutritional status, or are non- or non-. According to the National Kidney Foundation, irrespective of diagnosis, the stage of the disease is based on the level of kidney function: Stage Description GFR(mL/min/1.73 m(2)) 1 Kidney damage with normal or decreased GFR 90 2 Kidney damage with mild decrease in GFR 60-89 3 Moderate decrease in GFR 30-59 4 Severe decrease in GFR 15-29 5 Kidney failure <15 (or dialysis) 36 Test Performed by: [address] [address] Music Manager: Brian King III, M.D. 37 >100 to <200 pg/mL: likely compensated congestive heart failure (CHF) 200 to 400 pg/mL: likely moderate CHF >400 pg/mL: likely moderate to severe CHF [place] [facility] 38 Because ethnic data is not always readily available, this report includes an eGFR for both -Americans and non- Americans. The National Kidney Disease Education Program (NKDEP) does not endorse the use of the MDRD equation for patients that are not between the ages of 18 and 70, are , have extremes of body size, muscle mass, or nutritional status, or are non- or non-. According to the National Kidney Foundation, irrespective of diagnosis, the stage of the disease is based on the level of kidney function: Stage Description GFR(mL/min/1.73 m(2)) 1 Kidney damage with normal or decreased GFR 90 2 Kidney damage with mild decrease in GFR 60-89 3 Moderate decrease in GFR 30-59 4 Severe decrease in GFR 15-29 5 Kidney failure <15 (or dialysis) 39 Result TnIDx:0.03 Called to [id number] at: 22:06:59 by:[id number] Read back by: [id number] Reference Range and Interpretation: TnI (ng/mL) Interpretation Less Than 0.03 ng/mL Not supportive of diagnosis of GA 0.03 - 0.50 ng/mL Indeterminate: suggest serial studies if clinically indicated. Greater than 0.5 ng/mL Consistent with diagnosis of GA 40 Acute inflammation: >10.00 41 Because ethnic data is not always readily available, this report includes an eGFR for both -Americans and non- Americans. The National Kidney Disease Education Program (NKDEP) does not endorse the use of the MDRD equation for patients that are not between the ages of 18 and 70, are , have extremes of body size, muscle mass, or nutritional status, or are non- or non-. According to the National Kidney Foundation, irrespective of diagnosis, the stage of the disease is based on the level of kidney function: Stage Description GFR(mL/min/1.73 m(2)) 1 Kidney damage with normal or decreased GFR 90 2 Kidney damage with mild decrease in GFR 60-89 3 Moderate decrease in GFR 30-59 4 Severe decrease in GFR 15-29 5 Kidney failure <15 (or dialysis) 42 Consistent with previous results. Verbal to [id number] by [id number] at 0128 on 07/31/13. Results read back accurately. 43 Consistent with previous results. Verbal to [id number] by [id number] at 0128 on 07/31/13. Results read back accurately. 44 Because ethnic data is not always readily available, this report includes an eGFR for both -Americans and non- Americans. The National Kidney Disease Education Program (NKDEP) does not endorse the use of the MDRD equation for patients that are not between the ages of 18 and 70, are , have extremes of body size, muscle mass, or nutritional status, or are non- or non-. According to the National Kidney Foundation, irrespective of diagnosis, the stage of the disease is based on the level of kidney function: Stage Description GFR(mL/min/1.73 m(2)) 1 Kidney damage with normal or decreased GFR 90 2 Kidney damage with mild decrease in GFR 60-89 3 Moderate decrease in GFR 30-59 4 Severe decrease in GFR 15-29 5 Kidney failure <15 (or dialysis) 45 Result TnIDx:0.47 Called to [id number] at: 01:35:12 by:[id number] Read back by: [id number] Reference Range and Interpretation: TnI (ng/mL) Interpretation Less Than 0.03 ng/mL Not supportive of diagnosis of GA 0.03 - 0.50 ng/mL Indeterminate: suggest serial studies if clinically indicated. Greater than 0.5 ng/mL Consistent with diagnosis of GA 46 Acute inflammation: >10.00 47 do today do today~~Verbal to Dr. Lewis by [id number] at 1954 on 07/30/13.~ Results read back accurately. do today~~Verbal to Dr. Lewis by [id number] at 1954 on 07/30/13.~Results read back accurately. do today~~Verbal to Dr. Lewis by [email or web address] at 1954 on 07/30/13.~Results read back accurately. do today~~Verbal to Dr. Lewis by [id number] at 1954 on 07/30/13.~Results read back accurately. 48 Reviewed by Ivory Wall MD CBC and smear reviewed. Microcytic, hypochromic anemia present. Findings consistent with iron deficiency. CBC and smear reviewed. Monocytosis confirmed. Favor reactive process. No blasts seen. 49 Because ethnic data is not always readily available, this report includes an eGFR for both -Americans and non- Americans. The National Kidney Disease Education Program (NKDEP) does not endorse the use of the MDRD equation for patients that are not between the ages of 18 and 70, are , have extremes of body size, muscle mass, or nutritional status, or are non- or non-. According to the National Kidney Foundation, irrespective of diagnosis, the stage of the disease is based on the level of kidney function: Stage Description GFR(mL/min/1.73 m(2)) 1 Kidney damage with normal or decreased GFR 90 2 Kidney damage with mild decrease in GFR 60-89 3 Moderate decrease in GFR 30-59 4 Severe decrease in GFR 15-29 5 Kidney failure <15 (or dialysis) 50 do today 51 do today 52 g/dl 53 RUN DATE: 03/10/12 [facility] LAB LIVE PAGE 1 RUN TIME: [address] [place] [address] Specimen Inquiry Name: PEPPER ANTONIO : [address]: Licha Melo MD Acct: [id number] Unit: [id number] AGE: 81 Location: [facility] Re03/08/12 SEX: F Status: DEP ER SPEC: [id number] BARAK: 03/08/[address] [facility] [address]: Kameron KNIGHT Licha REQ: [id number] RECD: 03/08/12 STATUS: SHAKEEL OLEA DR: Kate KNIGHT,Supriya _ SOURCE: THROAT SPDESC: ORDERED: Throat Beta Str Procedure Result Verified Site Throat Beta Strep Culture Final 03/10/12932 ML Negative For Group A Beta Streptococcus END OF REPORT * ML=Testing performed at Main Lab DEPARTMENT OF PATHOLOGY, [address] [place] [address] Selvin Ryan M.D. Director [facility] Permit #[id number] Desirable: Less than 200 MG/DL Borderline-High Risk: 200-239 MG/DL High-Risk: 240 MG/DL and over 55 HDL Interpretation: Undesirable: High Risk: Less than 40 MG/DL Desirable: Low Risk: Greater than 60 MG/DL 56 FASTING 12 HOUR Do in 3 months 57 FASTING 12 HOUR Do in 3 months 58 Anion gap measurement may be of limited value in the presence of any alkalosis, especially in a combined acid base disorder. . 59 A metabolite of Naproxen, O-desmethylnaproxen, has been shown to interfere with the [place] method for measuring total bilirubin. Samples from patients who have taken Naproxen have shown spurious elevation in total bilirubin levels. 60 Because ethnic data is not always readily available, this report includes an eGFR for both -Americans and non- Americans. The National Kidney Disease Education Program (NKDEP) does not endorse the use of the MDRD equation for patients that are not between the ages of 18 and 70, are , have extremes of body size, muscle mass, or nutritional status, or are non- or non-. According to the National Kidney Foundation, irrespective of diagnosis, the stage of the disease is based on the level of kidney function: Stage Description GFR(mL/min/1.73 m(2)) 1 Kidney damage with normal or decreased GFR 90 2 Kidney damage with mild decrease in GFR 60-89 3 Moderate decrease in GFR 30-59 4 Severe decrease in GFR 15-29 5 Kidney failure <15 (or dialysis) 61 -- REFERENCE VALUE -- 25-HYDROXY D TOTAL (D2+D3) Optimum levels in the normal population are 25-80 Test Performed by: [facility] Dpt of Lab Med and Pathology [address] [place] [address] Music Manager: Brian King III, M.D. 62 Test Performed by: [facility] Dpt of Lab Med and Pathology [address] [place] [address] Music Manager: Brian King III, M.D. 63 CHOLESTEROL INTERPRETATION: Desirable: Less than 200 MG/DL Borderline-High Risk: 200-239 MG/DL High-Risk: 240 MG/DL and over 64 HDL INTERPRETATION: Undesirable: High Risk: Less than 40 MG/DL Desirable: Low Risk: Greater than 60 MG/DL 65 LDL INTERPRETATION: Low Risk Optimal Level: LDL Less than 100 MG/DL Near or Above Optimal: LDL 100-129 MG/DL Borderline High Risk: LDL 130-159 MG/DL High Risk: LDL 160-189 MG/DL Very High Risk: LDL Greater than 189 MG/DL 66 NORMAL GENITAL MATT Procedures Date CPT Code Description Status 01/29/2018 Bone Mineral Density Test Completed 10/07/2017 81281 EKG Tracing & Interpretation Completed 08/21/2017 63217 ECHO Transthorasic Realtime 2D W Doppler & Color Flow Completed Hosp 06/19/2016 84231 EKG Tracing & Interpretation Completed 03/04/2015 39518 EKG Tracing & Interpretation Completed 10/28/2014 Bone Mineral Density Test Completed 02/10/2014 Colonoscopy Completed 02/02/2014 77396 ECHO Transthoracic, Real-Time 2D With Doppler And Color Completed Flow 01/25/2014 41787 EKG Tracing & Interpretation Completed 08/13/2013 45973 Stress Test Supervsn W/Out I/R Completed 08/13/2013 09070 Treadmill Interp/Report Only Completed 07/31/2013 95572 ECHO Transthorasic Realtime 2D W Doppler & Color Flow Completed Hosp 07/31/2013 57971 EKG, Interpretation Only Completed 07/30/2013 39741 EKG Tracing & Interpretation Completed 05/08/2011 Bone Mineral Density Test Completed 04/19/2011 79130 EKG Tracing & Interpretation Completed 07/25/2010 Mammogram Completed 09/07/2008 88926 EKG Tracing & Interpretation Completed 08/09/2008 Bone Mineral Density Test Completed 08/01/2006 69671 EKG Tracing & Interpretation Completed Encounters Type Date Location Provider CPT E/M Dx Office Visit 10/11/2017 [facility] Internal Medicine Cynthia Cam 20443 G45.9 2:20p - Zaynab Tidwell I10 Office Visit 10/07/2017 4:00p [facility] Nicole Ogden M.D. 49431 G45.9 [facility] I10 Office Visit 08/30/2017 2:00p [facility] Internal Medicine Cynthia Cam 29948 G45.9 - Zaynab Tidwell I10 Office Visit 08/22/2017 [facility] Fermin 41309 R41.0 Hospitalists MD Tr R47.01 I10 Office Visit 08/21/2017 8:49a [facility] Elizabeth Hurd, 38483 R41.82 Yaw I16.1 I67.82 Office Visit 12/31/2016 2:40p [facility] Internal Medicine Cynthia Cam M.D. 74683 I10 - [place] D64.9 Z23 Office Visit 06/19/2016 11:45a [facility] Nicole Ogden M.D. 54229 I35.0 [facility] E78.5 I10 Office Visit 05/04/2016 2:20p [facility] Internal Medicine Cynthia Cam M.D. 90492 I10 - [place] Z63.4 Office Visit 09/12/2015 2:20p [facility] Internal Medicine Cynthia Cam M.D. 90665 I10 - [place] I71.4 Office Visit 06/13/2015 2:00p [facility] Internal Medicine Cnythia Cam M.D. 79095 I10 - [place] D64.9 K21.9 M81.0 Office Visit 03/04/2015 1:00p [facility] Nicole Ogden M.D. 58300 I35.0 [facility] E78.5 Office Visit 02/22/2014 4:00p [facility] [place] [address] 425.9 Office Visit 01/25/2014 3:15p [facility] Nicole Ogden M.D. 90118 428.0 425.9 Office Visit 01/22/2014 11:40a [facility] Internal Medicine Avis Hickman, N.P. 17605 724.5 - [place] V04.81 Office Visit 10/27/2013 11:40a [facility] Internal Medicine Avis Hickman, N.P. 98062 281.9 - [place] 414.01 Office Visit 08/27/2013 4:00p [facility] Internal Medicine - Supriya Love M.D., 22755 575.8 [place] FACP 285.9 414.01 Office Visit 08/14/2013 9:08a [facility] Hilary Martinez, 01719 414.8 M.DAshanti 424.0 424.2 401.1 Office Visit 08/14/2013 2:44p [facility], Gabe Nolan M.D. 93920 576.2 Hospitalists 401.9 272.2 428.0 Office Visit 08/13/2013 9:45a [facility] Nicole Ogden M.D. 80410 414.8 [facility] V72.83 Office Visit 08/13/2013 2:43p [facility],pc Gabe Nolan M.D. 53860 576.2 Hospitalists 401.9 272.2 428.0 Office Visit 08/12/2013 2:43p [facility],pc Gabe Nolan M.D. 54389 576.2 Hospitalists 401.9 272.2 428.0 Office Visit 08/12/2013 3:17p [facility] Hilary Martinez, 59926 780.79 M.DAshanti 425.4 424.0 424.1 Office Visit 08/11/2013 2:31p [facility],ruiz Nolan M.D. 56559 576.2 Hospitalists 401.9 272.2 428.0 Office Visit 08/10/2013 2:31p [facility],ruiz Nolan M.D. 33047 576.2 Hospitalists 401.9 272.2 428.0 Office Visit 08/09/2013 2:30p [place], [address] 428.33 Assoc,pc Hospitalists M.DAshanti 428.23 401.9 272.2 Office Visit 08/03/2013 4:15p [facility],pc Sunil Layne, 85199 280.0 Hospitalists M.D. 425.4 285.9 790.6 Office Visit 08/02/2013 4:14p [facility],pc Sunil Layne, 59365 280.0 Hospitalists M.D. 425.4 285.9 790.6 Office Visit 08/01/2013 4:12p [facility],pc Sunil Layne, 15091 280.0 Hospitalists M.D. 425.4 Office Visit 08/01/2013 10:08a [facility] Rich Dewitt, 95165 786.05 Philip Tidwell, [facility], FASNC 425.4 Office Visit 07/31/2013 4:11p [facility],pc Rachel Luna, 25052 285.9 Hospitalists M.D. 790.6 Office Visit 07/30/2013 2:20p [facility] Internal Medicine Supriya Love M.D., 36951 786.09 - [place] FACP 285.9 783.21 780.52 401.1 Office Visit 03/10/2012 12:00p [facility] Internal Medicine - Supriya Love M.D., 78737 462 [place] FACP Office Visit 05/22/2011 10:00a [facility] Internal Medicine - Supriya Love M.D., 02885 285.9 [place] FACP 272.0 269.2 Office Visit 04/19/2011 10:40a DO Not Use [employer] Supriya Kate, 49979 V70.0 M.D., FACP 272.0 401.1 V76.10 733.00 285.9 Office Visit 10/24/2010 11:20a DO Not Use [employer] Supriya Kate, 93030 786.2 M.D., FACP 719.45 Office Visit 10/05/2010 2:40p DO Not Use [facility] Supriya Kate, 18088 616.10 M.D., FACP Office Visit 05/10/2010 2:30p DO Not Use [facility] Supriya Kate, 90993 272.0 M.D., FACP V76.12 Office Visit 01/18/2010 2:30p DO Not Use [employer] [facility] Supriya Kate, 29689 272.0 M.D., FACP V04.81 Office Visit 06/15/2009 2:30p DO Not Use [facility] Supriya Kate, 88113 733.90 M.D., FACP 272.4 285.9 Office Visit 02/16/2009 2:30p DO Not Use [employer] Supriya Kate, 18942 272.2 M.D., FACP V04.81 Office Visit 09/07/2008 11:00a DO Not Use [facility] Supriya Kate, 23300 V70.0 M.D., FACP 272.0 285.9 401.1 V05.8 Office Visit 08/17/2008 1:15p DO Not Use [employer] Avis Hickman, 88566 465.9 N.P. 786.2 Office Visit 06/08/2008 2:00p DO Not Use [employer] Supriya Love, 73866 733.00 M.D., FACP 401.1 Office Visit 10/28/2007 2:30p DO Not Use [employer]-Zaynab Love M.D., 65110 724.2 FACP Office Visit 10/16/2007 4:15p DO Not Use [employer]-Zaynab Love M.D., 35777 724.3 FACP Office Visit 09/29/2007 12:00p DO Not Use [facility] Love M.D., 05375 726.5 FACP Office Visit 09/22/2007 4:00p DO Not Use [employer] [facility] Avis Hickman, 83046 720.2 N.P. 724.3 Office Visit 06/11/2007 4:00p DO Not Use [facility] Avis Hickman, N.P. 19698 462 464.00 Office Visit 08/01/2006 12:00p DO Not Use [facility] Supriya Love, 10894 401.1 M.D., FACP 272.0 733.00 V70.0 Office Visit 05/14/2006 11:30a DO Not Use [employer] Supriya Love, 21137 780.2 M.D., FACP 466.0 Office Visit 05/02/2006 12:00p DO Not Use [employer] Supriya Love, 15089 466.0 M.D., FACP 401.1 V04.81 Plan of Care Future Appointment(s):03/14/2018 2:20 pm - Cynthia Cam M.D. at [facility] Internal Medicine - Epbwdepyr76/02/2018 - Cynthia Cam M.D.M54.9 Dorsalgia , unspecifiedComments:Please do blood testContinue Tylenol - keep the dose under 3000 mg per day, call me if you need something [id number] Essential ( primary) hypertensionComments:Continue lisinoprilAdd amlodipineCheck BP at homeFollow up:2 weeks
== END 2018-02-24 10:13 | disposition home or self-care (01) ==
LOC: ED 08:44
DX: M47.9 Spondylosis, unspecified (principal); M54.6 Pain in thoracic spine; K21.9 Gastro-esophageal reflux disease without esophagitis; I50.9 Heart failure, unspecified; E78.00 Pure hypercholesterolemia, unspecified; E78.5 Hyperlipidemia, unspecified
CPT/HCPCS: 99282; A9270-GY

== ENCOUNTER 2018-12-25 09:36 | Inpatient (IN) | payer MEDICARE ==
--- OUTSIDE RECORDS SUMMARY | 2018-12-25 09:48 | XMS REPORT | Continuity of Care Document ---
:1930 External Reference #:[id number] Author Name Cynthia Cam M.D. (transmitted by agent of provider Carol Doherty) Address [address], [place] [address] Care Team Providers Name Role Phone Cynthia Cam MD - Internal Care Team Information Ware Carrier [phone] Medicine Other Physician Practices Care Team Information Ware Carrier Unavailable Comfort Carmona MD - Vascular Surgery Care Team Information Ware Carrier [phone] Problems Active Problems Provider Date Pure hypercholesterolemia Supriya Love M.D., FACP Onset: 10/05/2010 Anemia Supriya Love M.D., FACP Onset: 10/05/2010 Benign essential hypertension Supriya Love M.D., FACP Onset: 10/05/2010 Osteoporosis Cynthia Cam M.D. Onset: 09/29/2014 Transient cerebral ischemia Nicole Ogden M.D. Onset: 10/07/2017 Hyperlipidemia Nicole Ogden M.D. Onset: 03/04/2015 Aortic valve disorder Nicole Ogden M.D. Onset: 03/04/2015 Social History Type Date Description Comments Sex Unknown Tobacco Use Start: Unknown End: Former Cigarette Smoker Unknown 1 Pack Daily Cigarette Use Quit - 2000 ETOH Use Denies alcohol use Tobacco Use Start: Unknown End: Patient is a former Smoked 35 years 1 Unknown smoker pack day Recreational Drug Use Denies Drug Use Smoking Status Reviewed: 12/19/18 Patient is a former Smoked 35 years 1 smoker pack day Exercise Type/Frequency Exercises sporadically walking Allergies, Adverse Reactions, Alerts Active Allergies Reaction Severity Comments Date NKDA 01/22/2014 Inactive Allergies Vicodin EMESIS Moderate 06/10/2009 Medications Active Medications SIG Qnty Indications Ordering Provider Date Walker For daily use 1units R26.81 [facility], 12/19/2018 Misc M.D. Amlodipine Besylate take 1 tablet 90tabs I10 [facility], 03/21/2018 5mg by mouth every M.D. Tablets day Lisinopril take 1 tablet 180tabs I10 [facility], 10/13/2017 10mg Tablets by mouth two M.D. times daily Atorvastatin Calcium Take 1 Tablet 90tabs [facility], 09/23/2017 By Mouth Every M.D. 40mg Tablets Day Pantoprazole Sodium 1 by mouth 90tabs [facility], 08/30/2017 every day M.D. 40mg Tablets DR Clopidogrel Bisulfate take 1 tablet 90tabs [facility], 08/30/2017 by mouth every M.D. 75mg Tablets day Iron 1 daily Unknown 325(65Fe) mg Tablets Vitamin B-12 1 by mouth Unknown 3000mg every day Vitamin D3 1 by mouth Unknown 2000Unit every day Capsules Centrum Silver 1 by mouth Unknown Tablets every day Immunizations CPT Code Status Date Vaccine Reaction Lot # [id number] Given 02/21/2018 Influenza Virus Vaccine, [id number] Quadrivalent, Split, Preservative Free 54123 Given 12/31/2016 Influenza Virus Vaccine, [id number] Quadrivalent, Split, Preservative Free 49541 Given 01/26/2016 Influ Virus Vaccine, no reaction notaed .. [id number] Quadrivalent, Split Virus, .[place] [address] Given 02/18/2015 Influenza Virus Vaccine, [id number] Quadrivalent, Split, Preservative Free 52011 Given 09/29/2014 Pneumococcal Conjugate [id number] Vaccine 13 Valent For Intramuscular Use 92149 Given 01/22/2014 Influenza Virus Vaccine, [id number] Quadrivalent, Split, Preservative Free Q2037 Given 02/06/2012 Fluvirin Im 3Yrs And Older [id number] Q2035 Given 02/27/2011 Afluria Vaccine [id number] 09969 Given 01/18/2010 Influenza Virus 3Yrs & Over 33914 Given 04/28/2009 Influenza Virus Vaccine, Pandemic Formulation 39356 Given 02/16/2009 Influenza Virus 3Yrs & Over 23933 Given 09/07/2008 Zoster (Zostavax) 79805 Given 03/30/2008 Influenza Virus 3Yrs & Over 14982 Given 03/28/2007 Influenza Virus 3Yrs & Over 52651 Given 03/28/2007 Influenza Virus 3Yrs & Over 30925 Given 05/02/2006 Influenza Virus 3Yrs & Over 19116 Given 05/02/2006 Influenza Virus 3Yrs & Over Vital Signs Date Vital Result Comment 12/19/2018 2:25pm Height 59.25 inches 4'11.25" Weight 138.00 lb Heart Rate 79 /min BP Systolic Sitting 170 mmHg Rue reg cuff BP Diastolic Sitting 77 mmHg Rue reg cuff BP Systolic Recheck 138 mmHg Rue reg cuff BP Diastolic Recheck 79 mmHg Rue reg cuff O2 % BldC Oximetry 100 % BMI (Body Mass Index) 27.6 kg/m2 03/21/2018 2:27pm Height 59.25 inches 4'11.25" Weight 137.00 lb Heart Rate 70 /min BP Systolic 176 mmHg R, 170/78 L BP Diastolic 82 mmHg R, 170/78 L BP Systolic Sitting 197 mmHg BP Diastolic Sitting 93 mmHg O2 % BldC Oximetry 98 % BMI (Body Mass Index) 27.4 kg/m2 Results Description No Information Available Procedures Date Code Description Status 01/29/2018 190998746 Bone Mineral Density Test Completed 10/28/2014 232245405 Bone Mineral Density Test Completed 02/10/2014 48306435 Colonoscopy Completed 05/08/2011 085948028 Bone Mineral Density Test Completed 07/25/2010 70012271 Mammogram Completed 08/09/2008 241362476 Bone Mineral Density Test Completed Medical Devices Description No Information Available Encounters Description No Information Available Assessments Date Code Description Provider 12/19/2018 I10 Essential (primary) hypertension Cynthia Cam M.D. 12/19/2018 D47.2 Monoclonal gammopathy Cynthia Cam M.D. 12/19/2018 D64.9 Anemia, unspecified Cynthia Cam M.D. 12/19/2018 R26.81 Unsteadiness on feet Cynthia Cam M.D. Plan of Treatment Future Appointment(s):07/17/2019 3:00 pm - Cynthia Cam M.D. at [facility] Internal Medicine - Ccmob12/19/2018 - Cynthia Cam M.D.I10 Essential ( primary) hypertensionComments:Your blood pressure is fine. Continue the same medicationFollow up:June for AWVD47.2 Monoclonal gammopathyComments:Please do blood test cegcqE88.9 Anemia, eoqfasksvnpF16.81 Unsteadiness on feetNew Medication:Walker - For daily use Functional Status Description No Information Available Mental Status Description No Information Available Referrals Description No Information Available
--- NOTE | 2018-12-25 10:08 | ED ---
Adult Trauma - HPI Summary HPI Summary: Patient is a 88 y/o F presenting to [facility] via EMS with complaints of fall last night, 12/24/18. It is reported that the patient had her walker slip out from under her and she fell on the floor as a result. Patient's daughter estimates that the patient fell around 2000 last night. Patient stayed on the floor throughout the night. She notes that she had her head against her refrigerator. Daughter had called the following morning and became concerned when she was not responding to her calls. Daughter called staff at the [facility], where the patient resides, around 0930 today, 12/25/18, and patient was found on the ground. At present, patient has complaints of left shoulder, left hip pain, and left eye swelling as a result of injury. She notes that she had been lying on her left side and had her arm tucked underneath her body. She has a cyanotic left hand and notes pain with movement of left arm. Incontinence of urine and stool is noted. Daughter states that the patient has been unsteady on her feet for the past few weeks. No recent illnesses are noted. Falls have not been an issue in the past. 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 Patient had a watch on her left wrist, which was removed in the ED. Indentation of the left wrist where the watch was is noted. Patient denies back pain, neck pain, REECE, and numbness and tingling. Patient does not report fever, chills, erythema of eyes, sore throat, chest pain, SOB, cough, abdominal pain, N/V, dysuria, hematuria, rash and dizziness. On triage, pain is rated 8/10, nothing is noted to aggravate/alleviate Sx. Pulse 102, o2 100, BP 156/86 in room. Home medications and allergies are reviewed. - History of Current Complaint Stated Complaint: FALL PER EMS Time Seen by Provider: 12/25/18 09:40 Hx Obtained From: Patient Mechanism of Injury: Fall Ambulatory at the Scene: No Restraints: None Onset/Duration: Started Hours Ago, Still Present Onset of Pain: Prior to Arrival Current Severity: Severe Pain Intensity: 8 Pain Scale Used: 0-10 Numeric Location: Head - left eye swelling, Abdomen/Pelvis - left hip, Extremities - left shoulder Aggravating Factor(s): Nothing Alleviating Factor(s): Nothing Associated Signs & Symptoms: Positive: Other: - positive - left shoulder pain, left hip pain, and left eye swelling as a result of injury, cyanotic left hand and notes pain with movement of left arm. Incontinence of urine and stool is noted. negative - back pain, neck pain, REECE, numbness, tingling, chills, erythema of eyes, sore throat, dysuria, rash and dizziness. Negative: SOB, Chest Pain, Cough, Hematuria, Abdominal Pain, Fever, Nausea/Vomiting, Numbness/ Weakness - Additional Pertinent History Primary Care Physician: KIMBERLYN - Allergy/Home Medications Allergies/Adverse Reactions: Allergies Allergy/AdvReac Type Severity Reaction Status Date / Time hydrocodone [From Vicodin] Allergy Unknown Verified 02/24/18 09:01 Reaction Details Home Medications: Home Medications Atorvastatin* [Lipitor*] 60 mg PO DAILY 12/25/18 [History Confirmed 12/25/18] Lisinopril TAB* [Prinivil TAB*] 10 mg PO BID 12/25/18 [History Confirmed ] National Institutes Of Health - NIH Scale Level of Consciousness: Alert/Keenly Responsive Ask Patient the Month and His/Her Age: Both Correct Ask Pt to Open/Close Eyes and Superintendent Maintenance Airports/Release Non-Paretic Hand: Both Correctly Best Gaze (Only Horizontal Eye Movement): Normal Visual Field Testing: No Visual Loss Facial Paresis-Pt to Smile & Close Eyes or Grimace Symmetry: Partial Paralysis Motor Function - Right Arm: No Drift-Holds 10 Seconds Motor Function - Left Arm: Drifts LT 10 seconds Motor Function - Right Leg: No Drift-Holds 10 Seconds Motor Function - Left Leg: Drifts LT 10 seconds Limb Ataxia-Must be out of Proportion to Weakness Present: Absent Sensory (Use Pinprick to Test Arms/Legs/Trunk/Face): Normal Best Language (Describe Picture, Name Items): No Aphasia Dysarthria (Read Several Words): Normal Extinction and Inattention: No Abnormality Total Score: 4 PMH/Surg Hx/FS Hx/Imm Hx Endocrine/Hematology History: Reports: Hx Blood Transfusions - last week, in hospital stay, Hx Anemia Denies: Hx Diabetes Cardiovascular History: Reports: Hx Angina, Hx Congestive Heart Failure, Hx Hypercholesterolemia - HLD, Hx Hypertension, Hx Syncope, Other Cardiovascular Problems/Disorders - NEW EF of 30%, cardiomyopathy, mitral/tricuspid regurg Denies: Hx Pacemaker/ICD Respiratory History: Reports: Other Respiratory Problems/Disorders - pulmonary HTN GI History: Reports: Hx Gastroesophageal Reflux Disease, Other GI Disorders - Gallbladder distended History: Denies: Hx Renal Disease Comment Only: Other Problems/Disorders - ?CKD Musculoskeletal History: Reports: Hx Arthritis, Other Musculoskeletal History - disc compressions, compression fractures Denies: Hx Osteoporosis Sensory History: Reports: Hx Cataracts - left removed, Hx Contacts or Glasses Denies: Hx Deafness, Hx Hearing Aid Opthamlomology History: Reports: Hx Cataracts - left removed, Hx Contacts or Glasses Psychiatric History: Denies: Hx Panic Disorder - Cancer History Cancer Type, Location and Year: None reported - Surgical History Surgery Procedure, Year, and Place: Tonsilectomy. cataracts. laproscpoic galbladder Infectious Disease History: No Infectious Disease History: Denies: Traveled Outside the [place] in Last 30 Days - Family History Known Family History: Negative: Renal Disease - Social History Alcohol Use: None Substance Use Type: Reports: None Hx Tobacco Use: Yes Smoking Status (MU): Never Smoked Tobacco Type: Cigarettes Amount Used/How Often: 1ppd Length of Time of Smoking/Using Tobacco: 60s Have You Smoked in the Last Year: No Review of Systems Negative: Fever, Chills Negative: Erythema Negative: Sore Throat Negative: Chest Pain Negative: Shortness Of Breath, Cough Negative: Abdominal Pain, Vomiting, Nausea Positive: incontinence - of urine and stool . Negative: dysuria, hematuria Musculoskeletal: Other - positive - fall Positive: Myalgia - positive - left shoulder and hip pain, pain with movement of left arm; negative - back pain, neck pain, Edema - swelling of left eye Skin: Other - positive - cyanotic left hand, indentation of skin at left wrist Negative: Rash Neurological: Other - negative - dizziness Negative: Headache, Weakness, Numbness All Other Systems Reviewed And Are Negative: Yes Physical Exam - Summary Physical Exam Summary: Constitutional: Well-developed, Well-nourished, Alert, Cooperative Skin: Warm, Dry HENT: Normocephalic; No Racoons eyes; No merida's sign; No abrasion; No contusion; No hemotympanum; No maxilla facial tenderness or instability; Dentition are smooth; No dental trauma; No trismus Eyes: EOM normal, PERRL, visual nesbitt are intact in all 4 quadrants, left upper eyelid edema is noted. Neck: Trachea is midline. No stridor; No JVD; No step off; No posterior cervical spine tenderness Cardio: Rhythm regular, rate normal Heart sounds normal; Intact distal pulses; The pedal pulses are 2+ and symmetric. Radial pulses are 2+ and symmetric. Pulmonary/Chest wall: Effort normal; Breath sounds normal; Equal chest rise; No flail segment; No rib tenderness; No sternal tenderness Abd: Soft, Appearance normal. No distension; No tenderness; No palpable pulsatile mass; No Cullens sign; No Obando-Turners sign Musculoskeletal: She had cyanotic appearance of the palmar aspect of the left hand, but this improved to a pale color shortly after removal of watch. There is indentation which is circumferential to the wrist. Radial and ulnar pulses palpated. There is left lateral orbital edema that was dependent. Left posterior hip tenderness with passive ROM, passive FROM of left shoulder. 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 GCS 15. NIH 4 : No blood at urethral meatus Psych: Mood and affect Normal Triage Information Reviewed: Yes Vital Signs On Initial Exam: Initial Vitals Temp Pulse Resp BP Pulse Ox 97.7 F 106 18 156/86 95 12/25/18 09:50 12/25/18 09:50 12/25/18 09:50 12/25/18 09:50 12/25/18 09:50 Vital Signs Reviewed: Yes - Nai Coma Scale Best Eye Response: 4 - Spontaneous Best Motor Response: 6 - Obeys Commands Best Verbal Response: 5 - Oriented Coma Scale Total: 15 Diagnostics - Vital Signs Vital Signs Temp Pulse Resp BP Pulse Ox 12/25/18 09:50 97.7 F 106 18 156/86 95 - Laboratory Result Diagrams: 12/25/18 09:58 12/25/18 09:58 Lab Statement: Any lab studies that have been ordered have been reviewed, and results considered in the medical decision making process. - Radiology CXR Radiology Interpretation Completed By: Radiologist Summary of Radiographic Findings: CXR IMPRESSION: NO ACTIVE CARDIOPULMONARY DISEASE IS NOTED. THIS REPORT WAS REVIEWED BY DR. DIAZ. LEFT SHOULDER X-RAY Radiology Interpretation Completed By: Radiologist Summary of Radiographic Findings: LEFT SHOULDER X-RAY IMPRESSION: AC joint arthritis. No fracture is noted. THIS REPORT WAS REVIEWED BY DR. DIAZ. LEFT WRIST X-RAY Radiology Interpretation Completed By: Radiologist Summary of Radiographic Findings: LEFT WRIST X-RAY IMPRESSION: NO FRACTURE OF THE WRIST IS NOTED. THIS REPORT WAS REVIEWED BY DR. DIAZ. MRA NECK Radiology Interpretation Completed By: Radiologist Summary of Radiographic Findings: MRA NECK IMPRESSION: NO INTERNAL CAROTID ARTERY STENOSIS BY NASCET CRITERIA. THIS REPORT WAS REVIEWED BY DR. DIAZ. MRA HEAD Radiology Interpretation Completed By: Radiologist Summary of Radiographic Findings: MRA HEAD IMPRESSION: FINDINGS JUST SUGGESTIVE OF INTRACRANIAL ATHEROSCLEROSIS WAS APPRECIABLE ANEURYSM,. VASCULAR MALFORMATION, OCCLUSION, OR STENOSIS OF THE VISUALIZED INTRACRANIAL CIRCULATION. THIS REPORT WAS REVIEWED BY DR. DIAZ. MRI BRAIN Radiology Interpretation Completed By: Radiologist Summary of Radiographic Findings: MRI BRAIN IMPRESSION: 1. 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 2. DIFFUSE INVOLUTIONAL CHANGE WITH CHRONIC SMALL VESSEL ISCHEMIC CHANGES. 3. MILD SINUS MUCOSAL INFLAMMATORY DISEASE, WITH AN AIR-FLUID LEVEL IN THE LEFT MAXILLARY. SINUS. IN THE CORRECT CLINICAL SETTING, THIS MAY REPRESENT ACUTE SINUSITIS. THIS REPORT WAS REVIEWED BY DR. DIAZ. - CT CERVICAL SPINE CT CT Interpretation Completed By: Radiologist Summary of CT Findings: CERVICAL SPINE CT IMPRESSION: 1. OSTEOPENIA. 2. DEGENERATIVE DISC DISEASE AND OSTEOARTHRITIS DESCRIBED ABOVE. 3. NO ACUTE OSSEOUS INJURY TO THE CERVICAL SPINE. THIS REPORT WAS REVIEWED BY DR. DIAZ. PELVIC CT CT Interpretation Completed By: Radiologist Summary of CT Findings: CT PELVIS IMPRESSION: Degenerative changes of both hips with moderate degree. There is no evidence of hip or pelvic fracture identified. There is infrarenal abdominal aortic aneurysm is noted. This is similar to that identified. on ultrasound dated April 25, 2018. THIS REPORT WAS REVIEWED BY DR. DIAZ. MAXILLOFACIAL CT CT Interpretation Completed By: Radiologist Summary of CT Findings: CT MAXILLOFACIAL IMPRESSION: NO FACIAL FRACTURE. MODERATE SINUS MUCOSAL INFLAMMATORY DISEASE, WITH AIR-FLUID LEVELS IN THE LEFT FRONTAL AND. MAXILLARY SINUSES. IN THE CORRECT CLINICAL SETTING, THIS MAY REPRESENT ACUTE SINUSITIS. THIS REPORT WAS REVIEWED BY DR. DIAZ. BRAIN CT CT Interpretation Completed By: Radiologist Summary of CT Findings: BRAIN CT. IMPRESSION: 1. An age-indeterminate infarct in the right basal ganglia/internal capsule is new from. August 2017 ( subacute favored). 2. Soft tissue swelling about the forehead, left periorbital region and left scalp. 3. An air-fluid level in the left maxillary sinus could be better evaluated by dedicated. maxillofacial CT. 4. Mild chronic small vessel ischemic disease is likely. THIS REPORT WAS REVIEWED BY DR. DIAZ. - EKG 1005 Cardiac Rate: Tachycardia - rate of 101 BPM EKG Rhythm: Sinus Tachycardia Summary of EKG Findings: EKG showed sinus tachycardia with rate of 101 BPM, no STEMI. This EKG was reviewed and interpreted by Dr. Diaz. Re-Evaluation - Re-Evaluation First Eval Re-Evaluation Time: 11:30 Change: Improved Comment: Capillary refill is intact for fingers of left hand. Fingertips are still cool to touch. Palm is pale. Radial and ulnar pulses are palpated. Second Eval Re-Evaluation Time: 13:38 Change: Improved Comment: Color of left hand continues to improve. Adult Trauma Course/Dx - Course Course Of Treatment: Patient is a 88 y/o F presenting to [facility] via EMS with complaints of fall last night, 12/24/18. It is reported that the patient had her walker slip out from under her and she fell on the floor as a result. Patient's daughter estimates that the patient fell around 2000 last night. Patient stayed on the floor throughout the night. She notes that she had her head against her refrigerator. Daughter had called the following morning and became concerned when she was not responding to her calls. Daughter called staff at the [facility], where the patient resides, around 0930 today, 12/25/18, and patient was found on the ground. On physical exam, visual nesbitt are intact in all 4 quadrants, left upper eyelid edema is noted. She had cyanotic appearance of the palmar aspect of the left hand, but this improved to a pale color shortly after removal of watch. There is indentation which is circumferential to the wrist. Radial and ulnar pulses palpated. There is left lateral orbital edema that was dependent. Left posterior hip tenderness with passive ROM, passive FROM of left shoulder. 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 GCS 15. NIH 4. Bloodwork was obtained. Abnormal values include trop 0.05, total creatinine kinase 1509, lactic acid 2.5, magnesium 1.8, sodium 130, chloride 95, carbon dioxide 21, anion gap 14, BUN 42, creatinine 1.66, BUN/creatinine 25.3, glucose 156, AST 42, WBC 15.3, absolute neuts 13.3, absolute lymphs 0.9, absolute monos 1.1. UA showed 2+ protein, trace ketones, 2+ blood, trace WBC and RBC, squamous eptih cells present, 1+ glucose. During ED course, patient received fluids. EKG showed sinus tachycardia with rate of 101 BPM, no STEMI. CT MAXILLOFACIAL IMPRESSION: NO FACIAL FRACTURE. MODERATE SINUS MUCOSAL INFLAMMATORY DISEASE, WITH AIR-FLUID LEVELS IN THE LEFT FRONTAL AND. MAXILLARY SINUSES. IN THE CORRECT CLINICAL SETTING, THIS MAY REPRESENT ACUTE SINUSITIS. CT PELVIS IMPRESSION: Degenerative changes of both hips with moderate degree. There is no evidence of hip or pelvic fracture identified. There is infrarenal abdominal aortic aneurysm is noted. This is similar to that identified. on ultrasound dated April 25, 2018. LEFT WRIST X-RAY IMPRESSION: NO FRACTURE OF THE WRIST IS NOTED. LEFT SHOULDER X-RAY IMPRESSION: AC joint arthritis. No fracture is noted. CXR IMPRESSION: NO ACTIVE CARDIOPULMONARY DISEASE IS NOTED. CERVICAL SPINE CT IMPRESSION: 1. OSTEOPENIA. 2. DEGENERATIVE DISC DISEASE AND OSTEOARTHRITIS DESCRIBED ABOVE. 3. NO ACUTE OSSEOUS INJURY TO THE CERVICAL SPINE. BRAIN CT IMPRESSION. 1. An age-indeterminate infarct in the right basal ganglia/internal capsule is new from. August 2017 (subacute favored). 2. Soft tissue swelling about the forehead, left periorbital region and left scalp. 3. An air-fluid level in the left maxillary sinus could be better evaluated by dedicated. maxillofacial CT. 4. Mild chronic small vessel ischemic disease is likely. 1024 - Patient's case was discussed with Dr. Barnett , Dr. Barnett will come to ED to evaluate. 1116 - Dr. Go communicated Brain CT results over the phone. 1148 - Patient's case was discussed with Dr. Trevizo, Dr. Trevizo will evalute the patient. 1151 - Patient's case was discussed with Dr. Luna, Dr. Luna requests MRA and MRI and will then admit the patient. 1507 - Dr. Barnett has evaluated the patient and recommends admission. IMPRESSION : FINDINGS JUST SUGGESTIVE OF INTRACRANIAL ATHEROSCLEROSIS WAS APPRECIABLE ANEURYSM,. VASCULAR MALFORMATION, OCCLUSION, OR STENOSIS OF THE VISUALIZED INTRACRANIAL CIRCULATION. Patient was accepted for admission by Dr. Luna. - Diagnoses Provider Diagnoses: CVA (cerebral vascular accident), Rhabdomyolysis, Vascular injury of left arm - Physician Notifications Discussed Care Of Patient With: Melanie Barnett Time Discussed With Above Provider: 10:24 Instructed by Provider To: Other - 1024 - Patient's case was discussed with Dr. Barnett, Dr. Barnett will come to ED to evaluate. 1116 - Dr. Go communicated Brain CT results over the phone. 1148 - Patient's case was discussed with Dr. Trevizo, Dr. Trevizo will evalute the patient. 1151 - Patient's case was discussed with Dr. Luna, Dr. Luna requests MRA and MRI. 1507 - Dr. Barnett has evaluated the patient and recommends admission. - Critical Care Time Critical Care Time: 30-74 min Discharge ED - Sign-Out/Discharge Documenting (check all that apply): Patient Departure - admit Patient Received Moderate/Deep Sedation with Procedure: No - Discharge Plan Condition: Fair Disposition: ADMITTED TO [facility] Referrals: Cynthia Cam MD [Primary Care Provider] - - Attestation Statements Document Initiated by Scribe: Yes Documenting Scribe: DENIS SHEN Provider For Whom Scribe is Documenting (Include Credential): PORSHA DIAZ MD Scribe Attestation: DENIS Escobar, scribed for PORSHA DIAZ MD on 12/25/18 at 2000. Status of Scribe Document: Ready
[2018-12-25] MEDS ORDERED: NS 0.9% 500 ML* 500 ML IV ONE ×2 (10:24→11:26)
[2018-12-25 10:26] LABS: ABS Lymphocytes 0.9 10^3/ul (1.0-4.8); ABS Monocytes 1.1 10^3/ul (0-0.8); ABS Neutrophils 13.3 10^3/ul (1.5-7.7); Eosinophil % 0.1 %; Hematocrit 38 % (35-47); Hemoglobin 13.2 g/dL (12.0-16.0); Lymphocyte % 5.8 %; Mean Corpuscular HGB Conc 35 g/dL (31-36); Mean Corpuscular Hemoglobin 31 pg (27-31); Mean Corpuscular Volume 88 fL (80-97); Mean Platelet Volume 7.7 fL (7.4-10.4); Platelet Count 381 10^3/uL (150-450); Red Blood Count 4.31 10^6 /uL (3.70-4.87); Red Cell Distribution Width 15 % (10-15); White Blood Count 15.3 10^3/uL (3.5-10.8)
[2018-12-25 10:29] LABS: Albumin 4.3 g/dL (3.2-5.2); Anion Gap 14 mmol/L (2-11); CO2 Carbon Dioxide 21 mmol/L (22-32); Calcium 10.1 mg/dL (8.6-10.3); Chloride 95 mmol/L (101-111); Magnesium 1.8 mg/dL (1.9-2.7); Potassium 4.4 mmol/L (3.5-5.0); Sodium 130 mmol/L (135-145)
[2018-12-25 10:35] LABS: ALT 25 U/L (7-52); AST 42 U/L (13-39); Albumin/Globulin Ratio 1.1 (1-3); Alkaline Phosphatase 61 U/L (34-104); BUN/Creatinine Ratio 25.3 (8-20); Blood Urea Nitrogen 42 mg/dL (6-24); Creatine Kinase 1509 U/L (10-223); EGFR African American 35.3 (>60); EGFR Non-African American 29.2 (>60); Globulin 3.9 g/dL (2-4); Glucose 156 mg/dL (70-100); Total Protein 8.2 g/dL (6.4-8.9)
[2018-12-25 10:54] LABS: Urine Appearance Clear; Urine Bacteria Absent (Absent); Urine Bilirubin Negative (Negative); Urine Blood 2+ (Negative); Urine Color Yellow; Urine Glucose 1+(50 mg/dL) (Negative); Urine Ketones Trace (Negative); Urine Nitrite Negative (Negative); Urine Protein 2+(100 mg/dL) (Negative); Urine Red Blood Cell Trace(0-2/hpf) (Absent); Urine Specific Gravity 1.014 (1.010-1.030); Urine Squamous Epithelial Cell Present (Absent); Urine Urobilinogen Negative (Negative); Urine White Blood Cell Trace(0-5/hpf) (Absent)
[2018-12-25 11:07] LABS: TSH (Thyroid Stimulating Horm) 2.32 mcIU/mL (0.34-5.60)
[2018-12-25] MEDS ORDERED: NS 0.9% 1000 ML** 1,000 ML IV.FLUID IV ONE (11:41)
[2018-12-25 12:07] LABS: Troponin I 0.05 ng/mL (<0.04)
[2018-12-25] MEDS ORDERED: Magnesium Hydroxide LIQ* 30 ML UDC PO PRN (15:31)
[2018-12-25] MEDS ORDERED: Acetaminophen TAB* 325 MG PO PRN (15:31)
[2018-12-25] MEDS ORDERED: Senna TAB 8.6 mg* TAB PO PRN (15:31)
[2018-12-25] MEDS ORDERED: hydrALAZINE IV* 20 MG/ML VIAL IV SLOW PU PRN (15:44)
[2018-12-25] MEDS ORDERED: Magnesium Sulfate 2 GM IV* 2 GM/50 ML BAG IVPB ONE (16:30)
--- NOTE | 2018-12-25 17:22 | CONS ---
NEUROLOGY CONSULTATION NOTE: DATE OF CONSULT: 12/25/18 CONSULTING PROVIDER: Dr. Mynor Diaz. REASON FOR CONSULT: Fall with left-sided weakness. CHIEF COMPLAINT: Fall. HISTORY OF PRESENT ILLNESS: Ms. Beverly Atnonio is a pleasant 88-year-old right - handed female, whom I have seen for a consultation on 08/21/17 for acute delirium most likely related to hypertensive encephalopathy. The patient presented to [facility] today after she was found on the floor for approximately 14 hours. The patient stated that she last recalls getting ready to watch Jeopardy at around 7 p.m. yesterday on 12/24/18. She never got to watch it. She went to heat up her tea when suddenly she turned around and fell. She did not lose consciousness, but did hit her head. She had a bloody nose. She was unable to get up because something was slippery. Her daughter stated that there was blood all over the floor. She was unable to stand also because the patient had urinated and had loss of bowel control while she was lying on the floor for approximately 14 hours. The patient stated that she laid on her left side. She could not move her left side. She had trouble getting up with the right side because the floor was slippery. She has never fallen this bad before. She can hear her daughter calling her, but she could not get up. She was lying on a tiled floor. She did not lose consciousness. She did fall asleep and woke up in the morning, but still could not get up. She laid again on the floor up until 8:30-9 a.m. today when her daughter was calling her and she was not answering and had to call the shelter to check on her mother. She was found on the floor bruised on the left side with significant swelling of the left arm and leg. In the ED, she was noted to have left facial droop and weakness on the left side. NIH Stroke Scale was calculated to be 4, but when I assessed the patient, her NIH Stroke Scale was approximately a 3 for a slight drift on the left arm, left facial droop, and mild slurring of speech. A CT of the head was obtained and showed an age indeterminate infarct in the right basal ganglia internal capsule, which was new from August 2017. There was an air-fluid level in the maxillary sinus. A CT of the facial area showed moderate sinus mucosal inflammation with air-fluid level in the left frontal and maxillary sinus. In the correct clinical setting , this may represent acute sinusitis. There were no facial fractures. She had a cervical spine CT that showed osteopenia with degenerative disk disease with no acute osseous injury to the cervical spine. Her laboratory data showed a WBC of 15.3, hemoglobin of 13, hematocrit of 38. Sodium of 130, chloride of 95 , carbon dioxide of 21, anion gap of 14, BUN of 42, creatinine of 1.66, lactic acid 2.5. Troponin 0.05. TSH of 2.32. Urinalysis: No evidence of pyuria. The patient was not a candidate for IV tPA given her last known well time was over 12 hours. She was also not a candidate for large vessel occlusion as her NIH Stroke Scale was low and we do not suspect this is a large vessel infarct. PAST MEDICAL HISTORY: Anemia requiring blood transfusion in the past, congestive heart failure, hypertension, syncope, pulmonary hypertension, osteoporosis, cataracts. PAST SURGICAL HISTORY: No intracranial surgeries. FAMILY HISTORY: Mother had severe dementia. Father of pneumonia. SOCIAL HISTORY: The patient was a smoker 16 years ago. She smoked 1 pack per day for 30 years. She denied any alcohol use. REVIEW OF SYSTEMS: A 14-point review of systems was obtained and otherwise negative except for what was mentioned in the HPI. PHYSICAL EXAM: Vitals: Temperature of 97.7, pulse of 99, respiratory rate of 23, oxygen saturation of 99%, blood pressure of 153/99. General: Ill- appearing female, in no acute distress. Head: There is trauma and swelling of the left side of the head with periorbital edema. She has no right sided sinus pain. Neck is supple and symmetrical with no carotid bruits. Cardiac: Regular rate and rhythm with normal S1, S2. There is a holosystolic murmur graded as 3/6. Respiratory: Clear to auscultation bilaterally with no wheezing or rhonchi. Extremities: Swelling of the left upper and lower extremities. There is cyanosis of the fingers. The patient apparently laid on her left wrist and had pressure ulceration from a watch around that area. Skin : No skin lesions or lacerations. Psych: Affect is broad, normal mood. Able to joke around and she had a great rapport. Neurologic: Mental Status: Awake , alert, and oriented to person, place, time, and general circumstances. She has mild spastic dysarthria. Cranial Nerves: Pupils are equal, round, and reactive to light. Extraocular muscles are intact. Sensation is intact on the face bilaterally, mild facial asymmetry with flattening of the nasolabial fold on the left. Tongue is symmetrical and midline with atrophy or fasciculation. Motor strength: Normal bulk and tone throughout. 4/5 strength in the left upper and lower extremity mostly due to pain especially in the left shoulder region. Otherwise, she is able to elevate the arms all throughout, not 5/5 in strength, but definitely stronger on the right than the left. Sensation is intact to light touch throughout. Coordination: Normal [id number] bilaterally. Gait was not assessed due to the patient's recent trauma. ASSESSMENT AND RECOMMENDATIONS: Ms. Beverly Antonio is an 88-year-old female with history of hypertensive encephalopathy in the past, anemia, who presented to [facility] after a fall. Unfortunately, the patient was lying on the floor for approximately 14 hours. She has developed mild rhabdomyolysis and eft hemiparesis. 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 It is unclear why she had fallen, but it could be that she has had a stroke that contributed to some weakness on the left side, subsequently caused her to fall. Other differential diagnosis include mechanical fall without syncope with inability to stand due to trauma and rhabdomyolysis. 1. Suspect a lacunar stroke on the right subcortical region. The patient is not a candidate for IV tPA or mechanical thrombectomy. NIH Stroke Scale is 3. The patient was taking clopidogrel at home. She does have history of anemia. Depending on the results of the MRI imaging, we may put her on dual antiplatelet therapy for a short period of time, but we got to be very careful with that given the patient's age as well as her history of severe anemia. Continue atorvastatin 60 mg p.o. daily. Please consult PT/OT/[facility] evaluation and treatment. Please obtain an MRI of the brain without contrast, MRA head and neck to evaluate for intracranial stenosis as well as to evaluate for stroke. Please perform a dysphagia screen at bedside. Resume her antihypertensive agents, but allow slight permissive hypertension with systolic blood pressure between 140 to less than 180. Regarding the sinusitis seen on CT, the patient has no fever or sinus pain. Defer further management to the primary team. I will continue to follow. The patient will likely require rehabilitation. [id number]/[facility] #: [id number] JESUSITA
[2018-12-25] MEDS: NS 0.9% 1000 ML** 1,000 ML IV SCH (17:42)
--- NOTE | 2018-12-25 17:56 | HP ---
CC: Dr. Cynthia aCm; Dr. Rachel Farris; Dr. Melanie Barnett* ADMISSION HISTORY AND PHYSICAL: DATE OF ADMISSION: 12/25/18 PRIMARY CARE PROVIDER: Dr. Cynthia Cam. ATTENDING PHYSICIAN: Dr. Rachel Farris* (dictated by Morgan Martinez NP ). CHIEF COMPLAINT: Fall with inability to ambulate. HISTORY OF PRESENT ILLNESS: Ms. Antonio is an 88-year-old female patient who was found on the floor this morning in her home at [facility]. Per the patient's daughter and per EMS reports, the patient was last seen well approximately 8 o' clock last evening. The patient reports that she was ambulating with her walker to her refrigerator after making some coffee and suddenly fell. She describes it as a sliding down on to the floor and an inability to get up. She is unsure how she went down. She does not describe any trip and fall activity, however, she does state that when she was down on the floor, she was unable to get back up. She does describe being incontinent of both urine and stool and then she thinks that perhaps she did become confused at that time. She cannot describe further events after that. She does know that she was unable to pull herself back up. She described the floor under her being feeling slippery and being unable to get back up. She does remember being on her left side and on her left arm primarily and again not being able to get up off the floor. The patient's daughter was trying to call her in the morning and after several phone calls when she received no response, she called the communications administrator at [facility] who let herself into the apartment and found the patient on the floor. EMS services were called as the patient did appear to be confused. She was brought into the emergency department, given IV fluids. She was noted to have discoloration to the left hand and abrasion to the shoulder and swelling to the left orbit. In the ED, she did have imaging, which consisted of brain CT , C-spine CT, chest x-ray, pelvis, left shoulder, left wrist and a maxillofacial CT. All of her imaging, the only positive finding was some changes on her brain CT, which does appear to show an age indeterminate infarct of the right basal ganglia and internal capsule, which is a new finding from her last CT of the brain in August 2017. Other findings in the emergency department, the patient does have an acute kidney injury, she is dehydrated and does appear to have some electrolyte disturbances. For all of these reasons, we were asked to evaluate the patient for admission. PAST MEDICAL HISTORY: Significant for hypertension, hyperlipidemia, and GERD. PAST SURGICAL HISTORY: Significant only for an ERCP. HOME MEDICATIONS: 1. Atorvastatin 60 mg p.o. daily. 2. Pantoprazole 40 mg p.o. daily. 3. Lisinopril 10 mg p.o. b.i.d. 4. Plavix 75 mg daily. ALLERGIES: She has no known drug allergies per her report and the computer does say she has allergy to HYDROCODONE. FAMILY HISTORY: No known family history. SOCIAL HISTORY: The patient has a remote history of smoking, quit in 2000. Denies any alcohol or illicit drug use. REVIEW OF SYSTEMS: The patient describes herself to be generally weak, but denies any fever or chills. No visual disturbances. No shortness of breath or cough. No chest pain. She did have incontinence. She does have a rash like abrasion on the left shoulder. She has some discoloration that she describes in her left hand and some bruising, but otherwise no further constitutional complaints. PHYSICAL EXAMINATION GENERAL: An elderly female, in no acute distress. VITAL SIGNS: Blood pressure 153/99, heart rate 99, respiratory rate 20, O2 saturation 98% on room air with a temperature of 98.5. HEENT: The patient is atraumatic, normocephalic. PERRLA. Nonicteric sclerae. Left orbit appears to have edema and fluid filled lower lid. No bruising or ecchymosis noted. Otherwise, orbits are intact. Oral mucosa is somewhat dry. Tongue is midline. Dentition is intact. NECK: Supple, nontender. No JVD noted. No carotid bruits auscultated. LUNGS: Clear bilaterally to auscultation with no wheezing, rhonchi, or rales. CARDIOVASCULAR: S1, S2 are present. She has a systolic murmur noted at the left sternal border. Rate and rhythm are otherwise regular to tachycardic. No gallops or rubs noted. ABDOMEN: Soft, nontender, nondistended. Positive bowel sounds in all 4 quadrants. : Deferred. MUSCULOSKELETAL: There is no clubbing and no cyanosis. She has no edema. She has +2 distal pulses palpable. Her left hand does have some discoloration to the fingertips. She reportedly had a cool blue extremity upon arrival in the emergency department, but now she is neurovascularly intact. She has distal pulses in the fingertips. Her radial pulse is intact as well, but she does have bluish discoloration to the fingertips, but the digits are warm. She also has an area of discoloration around the left wrist where her wrist watch was removed. There was some edema in that area, which is now resolved. There is an abrasion to the left shoulder, which has a Tegaderm dressing on it. NEUROLOGIC: She is grossly intact. There are no one-sided or unilateral deficits. Gross motor and sensation are intact. Deep tendon reflexes are intact. Pulp Mixer are equal. She is alert and oriented x3. No further focal deficits noted. PSYCHIATRIC: She is cooperative and appropriate. DIAGNOSTIC DATA/LAB DATA: WBCs 5.3, RBCs 4.31, hemoglobin 13.2, hematocrit 38 , platelets 381. Sodium 130, potassium 4.4, chloride 95, CO2 of 21, anion gap 14, BUN 42, creatinine 1.66, GFR 29.2, BUN and creatinine ratio 25.3, glucose 156, lactic acid 2.5, calcium 10.1, magnesium 1.8. Total bilirubin 0.50, AST 42 , ALT 25, alk phos 61. Total creatine kinase 1509. Troponin 0.05. Total protein 8.2, albumin 4.3, globulin 3.9. TSH 2.32. Urinalysis does not show any acute infective process. Imaging: CT of the brain shows an age indeterminate infarct of the right basal ganglia and internal capsule, which is new from August 2017, soft tissue swelling about the forehead and the left periorbital region in the scalp. An air fluid level of the left maxillary sinus could be better evaluated by a dedicated maxillofacial CT and chronic small vessel ischemic disease likely. Maxillofacial CT shows no facial fracture. There is moderate sinus mucosal inflammatory disease with air fluid levels in the left frontal and maxillary sinus. In the correct clinical setting, may represent acute sinusitis. Wrist x -ray of the left wrist shows no fracture of the wrist noted. Shoulder x-ray of the left shoulder shows AC joint arthritis, but no fracture noted. CT of the pelvis shows degenerative changes of both hips with no evidence of a pelvic fracture. Chest x-ray shows no active cardiopulmonary disease. Cervical spine CT shows osteopenia, degenerative disk disease and osteoarthritis. No acute osseous injury to the cervical spine. EKG at 9:44 this morning shows sinus tachycardia, no acute ST segment changes. IMPRESSION: Ms. Antonio is an 88-year-old female who was found on the floor after what appears to be a mechanical fall, possibly a new cerebrovascular accident and in rhabdomyolysis. PLAN: The patient has been admitted to telemetry. DIAGNOSES: 1. Fall. It is unclear if the patient had a mechanical fall versus having a cerebrovascular event. At this point, all of her imaging is negative. She does not have any fractures. We will put in for PT/OT consults. In terms of her left hand discoloration, she does not have any fractures and she is currently neurovascularly intact. We will put in for neurovascular checks on the left hand and ensure that she does not have any reflux edema or latent compartment syndrome and request that nursing continue to monitor the left hand. 2. Possible cerebrovascular accident. It does appear that she has new findings on her CT scan. Dr. Barnett has already been consulted. She has pending MRI and MRA of the head and neck. We will also do an echocardiogram. She has already passed her swallow evaluation. We will place her in for consult with PT and OT. She is already on a statin therapy and on Plavix. We will withhold aspirin for now. She does have a history of having a low H and H and severe anemia that required blood transfusions in the past, so we will hold off on aspirin unless this infarct is proved to be acute or subacute on her MRI imaging. 3. Rhabdomyolysis. The patient was on the floor for some 13 hours. She has already received some small fluid boluses in the emergency department. We will keep her on IV fluid at maintenance, normal saline at 100 mL per hour. Continue to monitor her kidney status. Her renal function is slightly elevated. Her sodium is low as is her chloride. We will follow her electrolytes tomorrow and rest of her lab work and to ensure resolution and continue to follow the CPK. 4. Hypomagnesemia. She will be given 2 g of mag sulfate and recheck her mag in the morning. 5. Mildly elevated troponin. This is probably demand in the presence of fall and dehydration and electrolyte disturbances. The patient is not reporting any chest pain or other anginal equivalents. We will continue to trend the second troponin. If that is negative, we will stop trending the troponin. 6. DVT prophylaxis. Because the patient has had bleeding in the past, we will place her on SCDs only. 7. Diet. Heart healthy diet. 8. Ambulation with assistance as tolerated. 9. Disposition. The patient would be admitted to telemetry. TIME SPENT: Sixty minutes on admission planning and on patient evaluation. Also discussing plan of care with the patient's daughter, Eve Toledo who is her healthcare proxy. Eve can be reached at [phone] or [phone]. The rest of the patient's course will be determined by further diagnostics, laboratories and any other input from other providers as warranted during this admission. MORGAN MARTINEZ NP [id number]/[facility] #: [id number] JESUSITA
[2018-12-25] MEDS: Lisinopril TAB* 10 MG PO SCH (20:26)
[2018-12-25 21:17] LABS: Troponin I 0.07 ng/mL (<0.04)
[2018-12-26 00:04] LABS: Troponin I 0.05 ng/mL (<0.04)
[2018-12-26 04:12] LABS: Troponin I 0.04 ng/mL (<0.04)
[2018-12-26] MEDS: NS 0.9% 1000 ML** 1,000 ML IV SCH ×2 (04:58→18:51)
[2018-12-26 05:42] LABS: ABS Eosinophils 0.1 10^3/ul (0-0.6); ABS Lymphocytes 1.4 10^3/ul (1.0-4.8); ABS Monocytes 1.3 10^3/ul (0-0.8); ABS Neutrophils 9.4 10^3/ul (1.5-7.7); Eosinophil % 0.5 %; Hematocrit 34 % (35-47); Hemoglobin 11.2 g/dL (12.0-16.0); Lymphocyte % 11.4 %; Mean Corpuscular HGB Conc 33 g/dL (31-36); Mean Corpuscular Hemoglobin 30 pg (27-31); Mean Corpuscular Volume 89 fL (80-97); Mean Platelet Volume 7.5 fL (7.4-10.4); Platelet Count 247 10^3/uL (150-450); Red Blood Count 3.77 10^6 /uL (3.70-4.87); Red Cell Distribution Width 15 % (10-15); White Blood Count 12.2 10^3/uL (3.5-10.8)
[2018-12-26] MEDS: Clopidogrel TAB* 75 MG PO SCH (09:40)
[2018-12-26] MEDS: Lisinopril TAB* 10 MG PO SCH ×2 (09:40→21:35)
[2018-12-26] MEDS: Atorvastatin* 20 MG TAB PO SCH (09:40)
[2018-12-26] MEDS: Pantoprazole TAB * 40 MG TAB PO SCH (09:40)
[2018-12-26 12:23] LABS: Albumin 3.5 g/dL (3.2-5.2); Albumin/Globulin Ratio 1.3 (1-3); BUN/Creatinine Ratio 34.4 (8-20); Calcium 8.5 mg/dL (8.6-10.3); EGFR African American 38.5 (>60); EGFR Non-African American 31.8 (>60); Globulin 2.8 g/dL (2-4); Potassium 4.3 mmol/L (3.5-5.0); Total Bilirubin 0.4 mg/dL (0.2-1.0); Total Protein 6.3 g/dL (6.4-8.9)
[2018-12-26 16:24] LABS: HDL Cholesterol 39.7 mg/dL
[2018-12-26] MEDS: Aspirin EC TAB* 81 MG TAB.EC PO SCH (17:14)
--- NOTE | 2018-12-26 17:41 | ECHO ---
*[facility]* [place] [address] Fax #: [phone] Transthoracic Echocardiogram Patient: Beverly Antonio : 1930 Study Date: 12/26/2018 Age: 88 Gender: F HR: 74 bpm Height: 63 in /160 cm BSA: 1.68 m^2 Weight: 137.7 lb /62.6 kg BMI: 24.4 kg/m^2 *Edge Banding Off Bearer: María Elena Soto [facility] *Referring Physician: * Feli Martinez *Reading Physician: * Rich Dewitt MD Indications: Murmur. CVA. History: Aortic stenosis. Risk factors: Hypertension. Dyslipidemia. Conclusions Summary: - Left ventricle: The cavity size is mildly reduced. Wall thickness is moderately increased. Systolic function is normal. The estimated ejection fraction is 55-60%. Wall motion is normal; there are no regional wall motion abnormalities. Doppler parameters are consistent with abnormal left ventricular relaxation (grade 1 diastolic dysfunction). - Aortic valve: The findings are consistent with moderate stenosis. - Atrial septum: A PFO is not demonstrated by color Doppler or agitated saline contrast. - Since the prior echocardiogram completed 08/21/17, pertinent change is prior normal left ventricular size reported. Study data: Transthoracic echocardiogram. Procedure: Transthoracic echocardiography was performed. Image quality was good. A bubble study was performed. Complete 2D, spectral Doppler, and color flow Doppler. Location: Bedside. Patient status: Inpatient. Patient room number: 450. Rhythm: Normal sinus rhythm. Findings Left ventricle: The cavity size is mildly reduced. Wall thickness is moderately increased. Systolic function is normal. The estimated ejection fraction is 55-60%. Wall motion is normal; there are no regional wall motion abnormalities. Doppler parameters are consistent with abnormal left ventricular relaxation (grade 1 diastolic dysfunction). Right ventricle: The cavity size is normal. Systolic function is normal. Left atrium: The atrium is normal in size. Right atrium: The atrium is normal in size. Atrial septum: A PFO is not demonstrated by color Doppler or agitated saline contrast. Negative bubble study. Mitral valve: The Mitral valve annulus appears calcified. The leaflets are mildly calcified. There is no evidence of stenosis. There is trace regurgitation. Aortic valve: The annulus is mildly calcified. The valve is trileaflet. The leaflets are moderately thickened. The findings are consistent with moderate stenosis. There is no significant regurgitation. Tricuspid valve: The leaflets are normal thickness. There is trace regurgitation. Pulmonic valve: The leaflets are normal thickness. There is no evidence of stenosis. There is trace regurgitation. Aorta: Aortic root: The aortic root is appears normal. Ascending aorta: The ascending aorta is appears normal. Aortic arch: The aortic arch is appears normal. Pericardium: There is no significant pericardial effusion. Pulmonary arteries: Not well visualized. Systolic pressure is at the upper limits of normal. Systemic veins: Inferior vena cava: The vessel is normal in size. There is (>= 50%) respiratory change in the IVC dimension. Measurements Left ventricle Value Ref Aortic valve continued Value Ref SHALOM, LAX (L) 2.9 cm 3.8 - 5.2 Peak v, S 3.5 m/sec ----- ESD, LAX (L) 1.6 cm 2.2 - 3.5 VTI, S 72.0 cm ----- FS, LAX 43 % 27 - 45 Mean grad, S 26.0 mm Hg ----- PW, ED, LAX (H) 1.6 cm 0.6 - 0.9 Peak grad, S 49.0 mm Hg ----- E', lat hasmukh, TDI (L) 6.0 cm/sec >=10.0 E/e', lat hasmukh, TDI 12 --------- Mitral valve Value Ref E', med hasmukh, TDI (L) 4.0 cm/sec >=7.0 Peak E 0.7 m/sec - ---- E/e', med hasmukh, TDI 18 --------- Peak A 1.29 m/sec ---- - E', avg, TDI 5.0 cm/sec --------- Decel time 176 ms ---- - E/e', avg, TDI 14 <=14 PHT 70 ms - ---- Mean grad, D 3.0 mm Hg ----- LVOT Value Ref Peak grad, D 9.1 mm Hg ----- Diam, S 1.90 cm --------- Peak E/A ratio 0.55 ----- Area 2.8 cm^2 --------- MVA, PHT 3.1 cm^2 ----- Peak marilia, S 1 m/sec --------- VTI, S 22.0 cm --------- Pulmonic valve Value Ref Peak grad, S 4 mm Hg --------- Peak v, S 0.58 m/sec ----- Mean grad, S 2 mm Hg --------- Peak grad, S 1.4 mm Hg ----- Ventricular septum Value Ref Tricuspid valve Value Ref IVS, ED (H) 1.6 cm 0.6 - 0.9 TR peak v (H) 2.82 m/sec <=2.8 Peak RV-RA grad, S 32 mm Hg ----- Right ventricle Value Ref SHALOM, LAX 2.4 cm --------- Aortic root Value Ref SHALOM major ax, A4C (L) 2.2 cm 5.9 - 8.3 Root diam 2.5 cm <3.9 Pressure, S 35 mm Hg --------- Ascending aorta Value Ref Left atrium Value Ref AAo AP diam, S 3.0 cm ----- LA ID 2.8 cm --------- ML dim, A4C 3.8 cm --------- Aortic arch Value Ref SI dim, A4C 5.0 cm --------- Arch diam 2.7 cm ----- Vol/bsa, ES, 2-p 28 ml/m^2 16 - 34 Decending aorta Value Ref Right atrium Value Ref Tsering peak marilia 0.6 m/sec ----- SI dim, ES 4.5 cm 3.4 - 5.3 ML dim, ES, A4C 3.4 cm 2.6 - 4.4 Pulmonary artery Value Ref Estimated RAP 8 mm Hg --------- Pressure, S 33.7 mm Hg ----- Aortic valve Value Ref Inferior vena cava Value Ref Hasmukh diam, ED 2.0 cm --------- Diam 0.9 cm ----- Legend: (L) and (H) annalise values outside specified reference range. Prepared and electronically signed by Rich Dewitt MD 12/26/2018 17:41
--- NOTE | 2018-12-26 19:19 | PN ---
Subjective Date of Service: 12/26/18 Interval History: Patient seen and examined. Patient states she is feeling better today. Complaint of LL weakness today and some fatigue. Left hand pain improved as is discoloration. No further overnight events noted. Objective Active Medications: Acetaminophen (Tylenol Tab*) 650 mg PO Q4H PRN PRN Reason: MILD PAIN or TEMP > 100.4 Aspirin (Aspirin Ec Tab*) 81 mg PO DAILY [facility] Stop: 01/16/19 23:59 Last Admin: 12/26/18 17:14 Dose: 81 mg Atorvastatin Calcium (Lipitor*) 60 mg PO DAILY [facility] Last Admin: 12/26/18 09:40 Dose: 60 mg Clopidogrel Bisulfate (Plavix Tab*) 75 mg PO DAILY [facility] Last Admin: 12/26/18 09:40 Dose: 75 mg Hydralazine HCl (Apresoline Iv*) 5 mg IV SLOW PU Q6H PRN PRN Reason: SBP>180 DBP>90 Sodium Chloride (Ns 0.9% 1000 Ml) 1,000 mls @ 100 mls/hr IV PER RATE [facility] Last Admin: 12/26/18 18:51 Dose: 100 mls/hr Lisinopril (Prinivil Tab*) 10 mg PO BID [facility] Last Admin: 12/26/18 09:40 Dose: 10 mg Magnesium Hydroxide (Milk Of Magnesia Liq*) 30 ml PO Q4H PRN PRN Reason: CONSTIPATION Pantoprazole Sodium (Protonix Tab*) 40 mg PO DAILY [facility] Last Admin: 12/26/18 09:40 Dose: 40 mg Senna (Senokot 8.6 Mg Tab*) 1 tab PO BID PRN PRN Reason: CONSTIPATION Vital Signs - 8 hr 12/26/18 12/26/18 11:25 16:50 Temperature 97.6 F 98.1 F Pulse Rate 92 73 Respiratory 19 18 Rate Blood Pressure 127/56 139/72 (mmHg) O2 Sat by Pulse 99 93 Oximetry Oxygen Devices in Use Now: None Appearance: alert, NAD Eyes: No Scleral Icterus, PERRLA - orbital edema resolved Ears/Nose/Mouth/Throat: Clear Oropharnyx, Mucous Membranes Moist Neck: NL Appearance and Movements; NL JVP, Trachea Midline Respiratory: Symmetrical Chest Expansion and Respiratory Effort, Clear to Auscultation Cardiovascular: NL Sounds; No Murmurs; No JVD, RRR Abdominal: NL Sounds; No Tenderness; No Distention Extremities: No Clubbing, Cyanosis Skin: No Rash or Ulcers, - - abrasion left shoulder Nutrition: Taking PO's Result Diagrams: 12/26/18 04:56 12/26/18 11:54 Microbiology and Other Data: Microbiology 12/25/18 10:35 Urine Culture - Final Urine Diagnostic Imaging: Patient Name: PEPPER RAMOS Medical Record#: [id number] Ordering Physician: Mynor Diaz MD Acct.#: [id number] : 1930 Age: 88 Sex: F Location: [address] [place] [address]/TELEMET[place] Exam Date: 12/25/18 1155 ADM Status: ADM IN Order Information: MRI BRAIN W/O Accession Number: [id number] CPT: 83807 HISTORY: L WEAKNESS COMPARISONS: Head CT dated December 25, 2018 TECHNIQUE: The following sequences were obtained of the head: Sagittal T1- weighted images, axial T2-weighted images, axial FLAIR images, axial susceptibility weighted images, axial T1-weighted images. Additionally, axial diffusion-weighted images were obtained with calculated apparent diffusion coefficients. FINDINGS: HEMORRHAGE/INFARCT: There is restricted diffusion within the right globus pallidus consistent with subacute nonhemorrhagic infarct. Elsewhere, there is no hemorrhage or acute infarct. MASSES/SHIFT: There is no mass or shift. EXTRA-AXIAL SPACES/MENINGES: There are no extra-axial fluid collections. SULCI AND VENTRICLES: There is diffuse and proportional enlargement of the sulci and ventricles. CEREBRUM: There is elevated T2/FLAIR signal in the periventricular and subcortical white matter, including the area of restricted diffusion of the right basal ganglia. BRAINSTEM: There is elevated T2/STIR signal within the pontine white matter. CEREBELLUM: There are no focal parenchymal abnormalities. The cerebellar tonsils are normal in size and position. SELLA: The sella is normal. PINEAL: The pineal region is clear. CP ANGLE/TEMPORAL BONES: The labyrinthine structures are grossly normal. VESSELS: Normal flow-voids are noted within the visualized vertebral vasculature. DIFFUSION ABNORMALITIES: As noted above, there is restricted diffusion within the right basal ganglia. PARANASAL SINUSES/MASTOIDS: There is an air-fluid level within the left maxillary sinus. ORBITS: The orbits are unremarkable. BONES AND SOFT TISSUE: No bone or soft tissue abnormalities are noted. OTHER: None IMPRESSION: 1. 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 2. DIFFUSE INVOLUTIONAL CHANGE WITH CHRONIC SMALL VESSEL ISCHEMIC CHANGES. 3. MILD SINUS MUCOSAL INFLAMMATORY DISEASE, WITH AN AIR-FLUID LEVEL IN THE LEFT MAXILLARY SINUS. IN THE CORRECT CLINICAL SETTING, THIS MAY REPRESENT ACUTE SINUSITIS <Electronically signed by Franck Torres MD in OV> 12/25/18 1701 This report is only to be considered final once signed by the Provider(s) as displayed in the "<Electronically Signed by >" field (s). Absence of a signature indicates the report is in a draft status and still needs to be finalized. In the event this document was created by someone other than the signing Provider, the individual initiating the document will be listed in the "Entered by:" or "Dictated by:" [email or web address]. 1 of 2 Assess/Plan/Problems-Billing Assessment: This is an 88 year old female with HTN, HLP and GERD that presents to ED with fall and weakness and rhabdo. - Patient Problems (1) CVA (cerebral vascular accident) Code(s): I63.9 - CEREBRAL INFARCTION, UNSPECIFIED SNOMED Code(s): 861047360 Comment: - Subacute infarct in right basal ganglia with LLE weakness, MRI as above - Neurology consult appreciated - Start DAPT - Referral for PMRU (2) Rhabdomyolysis Code(s): M62.82 - RHABDOMYOLYSIS SNOMED Code(s): 233627030 Comment: - With PERRY and leukocytosis (improving), 2/2 prolonged time on the floor - continue IVF and monitor renal function (3) HTN (hypertension) Code(s): I10 - ESSENTIAL (PRIMARY) HYPERTENSION SNOMED Code(s): 17849834 Comment: - On lisinopril, hydralazine PRN (4) DVT prophylaxis Code(s): GUQ4827 - SNOMED Code(s): 433073732 Comment: - SCDs (5) Full code status Code(s): Z78.9 - OTHER SPECIFIED HEALTH STATUS SNOMED Code(s): 331110616 Status and Disposition: Inpatient, dispo likely to PMRU for rehab
--- NOTE | 2018-12-27 | PN ---
Subjective Date of Service: 12/26/18 Length of Stay: 1 Days Neurology is following for stroke. Interval History: She is currently getting an ECHO done. She has left sided weakness. Symptoms have improved. The left facial swelling is better. She denied any swallowing impairment. She denied any headache or visual disturbance. Review of Systems: Denied CP, SOB, or palpitations. Objective Active Medications: Acetaminophen (Tylenol Tab*) 650 mg PO Q4H PRN PRN Reason: MILD PAIN or TEMP > 100.4 Aspirin (Aspirin Ec Tab*) 81 mg PO DAILY [facility] Stop: 01/16/19 23:59 Last Admin: 12/26/18 17:14 Dose: 81 mg Atorvastatin Calcium (Lipitor*) 60 mg PO DAILY [facility] Last Admin: 12/26/18 09:40 Dose: 60 mg Clopidogrel Bisulfate (Plavix Tab*) 75 mg PO DAILY [facility] Last Admin: 12/26/18 09:40 Dose: 75 mg Hydralazine HCl (Apresoline Iv*) 5 mg IV SLOW PU Q6H PRN PRN Reason: SBP>180 DBP>90 Sodium Chloride (Ns 0.9% 1000 Ml) 1,000 mls @ 100 mls/hr IV PER RATE [facility] Last Admin: 12/26/18 18:51 Dose: 100 mls/hr Lisinopril (Prinivil Tab*) 10 mg PO BID [facility] Last Admin: 12/26/18 21:35 Dose: 10 mg Magnesium Hydroxide (Milk Of Magnesia Liq*) 30 ml PO Q4H PRN PRN Reason: CONSTIPATION Pantoprazole Sodium (Protonix Tab*) 40 mg PO DAILY [facility] Last Admin: 12/26/18 09:40 Dose: 40 mg Senna (Senokot 8.6 Mg Tab*) 1 tab PO BID PRN PRN Reason: CONSTIPATION Vital Signs 12/26/18 12/26/18 12/26/18 03:51 08:00 11:25 Temperature 98.4 F 97.9 F 97.6 F Pulse Rate 85 89 92 Respiratory 16 19 19 Rate Blood Pressure 133/66 153/71 127/56 (mmHg) O2 Sat by Pulse 100 95 99 Oximetry 12/26/18 16:50 Temperature 98.1 F Pulse Rate 73 Respiratory 18 Rate Blood Pressure 139/72 (mmHg) O2 Sat by Pulse 93 Oximetry Intake and Output Last 24 Hours 12/24/18 12/25/18 12/26/18 12/27/18 06:59 06:59 06:59 06:59 Intake Total 2115 1882 Balance 2115 1882 Weight 142 lb 3.2 oz Intake: IV Fluids 1995 883 NS (0.9%) 996 883 Oral 120 1000 Other: Estimated Void Large Large # Bowel Movements 1 1 Estimated Stool Amount Small Small # Voids 1 1 Oxygen Devices in Use Now: None Neurology Exam: General: Well nourished, well developed, and in no acute distress. Overweight female. HEENT: Normocephelic/atraumatic, sclera anicteric, mucous membranes moist Neck: Supple Extremities: No clubbing, cyanosis, or edema Neurological Findings: NIHSS: 4 Awake, alert, and oriented to person, place, and time. Speech: mild dysarthria. Cranial Nerve: PERRL, EOM intact, left facial droop. Nasal labial fold. Motor: 3-4/5 weakness on the left. Normal strength on the right Sensation: intact to LT/PP bilaterally upper and lower extremities Deep Tendon Reflex: trace throughout, extensor plantar response on the left. Motor dysmetria on the left. Gait: n/a Result Diagrams: 12/26/18 04:56 12/26/18 11:54 Additional Lab and Data: LDL: 90 Sodium: 129 MRI brain without contrast 12/25/2018: right basal ganglia ischemic infarction MRA head and neck" no LVO or severe carotid stenosis. 2D TTE: EF 55-60 %. No PFO Microbiology and Other Data: Microbiology 12/25/18 10:35 Urine Culture - Final Urine Diagnostic Imaging: Patient Name: PEPPER RAMOS Medical Record#: [id number] Ordering Physician: Mynor Diaz MD Acct.#: [id number] : 1930 Age: 88 Sex: F Location: [address] [place] [address]/[place] Exam Date: 12/25/18 1155 ADM Status: ADM IN Order Information: MRI BRAIN W/O Accession Number: [id number] CPT: 06169 HISTORY: L WEAKNESS COMPARISONS: Head CT dated December 25, 2018 TECHNIQUE: The following sequences were obtained of the head: Sagittal T1- weighted images, axial T2-weighted images, axial FLAIR images, axial susceptibility weighted images, axial T1-weighted images. Additionally, axial diffusion-weighted images were obtained with calculated apparent diffusion coefficients. FINDINGS: HEMORRHAGE/INFARCT: There is restricted diffusion within the right globus pallidus consistent with subacute nonhemorrhagic infarct. Elsewhere, there is no hemorrhage or acute infarct. MASSES/SHIFT: There is no mass or shift. EXTRA-AXIAL SPACES/MENINGES: There are no extra-axial fluid collections. SULCI AND VENTRICLES: There is diffuse and proportional enlargement of the sulci and ventricles. CEREBRUM: There is elevated T2/FLAIR signal in the periventricular and subcortical white matter, including the area of restricted diffusion of the right basal ganglia. BRAINSTEM: There is elevated T2/STIR signal within the pontine white matter. CEREBELLUM: There are no focal parenchymal abnormalities. The cerebellar tonsils are normal in size and position. SELLA: The sella is normal. PINEAL: The pineal region is clear. CP ANGLE/TEMPORAL BONES: The labyrinthine structures are grossly normal. VESSELS: Normal flow-voids are noted within the visualized vertebral vasculature. DIFFUSION ABNORMALITIES: As noted above, there is restricted diffusion within the right basal ganglia. PARANASAL SINUSES/MASTOIDS: There is an air-fluid level within the left maxillary sinus. ORBITS: The orbits are unremarkable. BONES AND SOFT TISSUE: No bone or soft tissue abnormalities are noted. OTHER: None IMPRESSION: 1. 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 2. DIFFUSE INVOLUTIONAL CHANGE WITH CHRONIC SMALL VESSEL ISCHEMIC CHANGES. 3. MILD SINUS MUCOSAL INFLAMMATORY DISEASE, WITH AN AIR-FLUID LEVEL IN THE LEFT MAXILLARY SINUS. IN THE CORRECT CLINICAL SETTING, THIS MAY REPRESENT ACUTE SINUSITIS <Electronically signed by Franck Torres MD in OV> 12/25/18 7520 This report is only to be considered final once signed by the Provider(s) as displayed in the "<Electronically Signed by >" field (s). Absence of a signature indicates the report is in a draft status and still needs to be finalized. In the event this document was created by someone other than the signing Provider, the individual initiating the document will be listed in the "Entered by:" or "Dictated by:" nesbitt. 1 of 2 Assessment/Plan 1. Acute right basal ganglia ischemic infarction- Etiology: due to small vessel ischemia causing lacunar stroke. - NIHSS: 4 - Recommendations: Increase atorvastatin to 80 mg nightly. DAPT with aspirin 81 mg and Plavix 75 mg daily for total of 21 days. Then discontinue aspirin. Maintain BP within normal range. She will benefit from acute stroke rehabilitation. VTE prophylaxis: SCDs. Stroke education was provided. Secondary stroke prevention was maximized. She was instructed to discontinue aspirin immediately if she develops any large extremity hematoma, GI bleed, or epistaxis. Educated the patient on the importance of BP management. Reviewed the MRI images with the patient's daughter, with the patient's permission. Neurology will sign off. Please contact us for any questions or concerns.
[2018-12-27] MEDS: NS 0.9% 1000 ML** 1,000 ML IV SCH ×2 (06:04→20:56)
[2018-12-27 06:39] LABS: ABS Eosinophils 0.2 10^3/ul (0-0.6); ABS Lymphocytes 1.7 10^3/ul (1.0-4.8); ABS Monocytes 1.1 10^3/ul (0-0.8); ABS Neutrophils 7.8 10^3/ul (1.5-7.7); Eosinophil % 1.7 %; Hematocrit 28 % (35-47); Hemoglobin 9.6 g/dL (12.0-16.0); Lymphocyte % 15.6 %; Mean Corpuscular HGB Conc 34 g/dL (31-36); Mean Corpuscular Hemoglobin 31 pg (27-31); Mean Corpuscular Volume 89 fL (80-97); Mean Platelet Volume 7.5 fL (7.4-10.4); Platelet Count 212 10^3/uL (150-450); Red Blood Count 3.12 10^6 /uL (3.70-4.87); Red Cell Distribution Width 15 % (10-15); White Blood Count 10.7 10^3/uL (3.5-10.8)
[2018-12-27 06:51] LABS: BUN/Creatinine Ratio 31.7 (8-20); Calcium 6.5 mg/dL (8.6-10.3); EGFR African American 42.2 (>60); EGFR Non-African American 34.9 (>60)
[2018-12-27] MEDS: Atorvastatin* 20 MG TAB PO SCH (09:06)
[2018-12-27] MEDS: Lisinopril TAB* 10 MG PO SCH ×2 (09:07→21:00)
[2018-12-27] MEDS: Clopidogrel TAB* 75 MG PO SCH (09:07)
[2018-12-27] MEDS: Aspirin EC TAB* 81 MG TAB.EC PO SCH (09:07)
[2018-12-27] MEDS: Pantoprazole TAB * 40 MG TAB PO SCH (09:07)
--- NOTE | 2018-12-27 09:41 | PN ---
Subjective Date of Service: 12/27/18 Interval History: Ms. Antonio reports that she is feeling tired today. She continues to have left sided weakness but thinks that it is better at times. She denies chest pain, SOB, nausea, or abdominal pain. Objective Active Medications: Acetaminophen (Tylenol Tab*) 650 mg PO Q4H PRN Aspirin (Aspirin Ec Tab*) 81 mg PO DAILY [facility] Atorvastatin Calcium (Lipitor*) 60 mg PO DAILY [facility] Clopidogrel Bisulfate (Plavix Tab*) 75 mg PO DAILY [facility] Hydralazine HCl (Apresoline Iv*) 5 mg IV SLOW PU Q6H PRN Sodium Chloride (Ns 0.9% 1000 Ml) 1,000 mls @ 100 mls/hr IV PER RATE [facility] Lisinopril (Prinivil Tab*) 10 mg PO BID [facility] Magnesium Hydroxide (Milk Of Magnesia Liq*) 30 ml PO Q4H PRN Pantoprazole Sodium (Protonix Tab*) 40 mg PO DAILY [facility] Senna (Senokot 8.6 Mg Tab*) 1 tab PO BID PRN Vital Signs: Temp Pulse Resp BP Pulse Ox 97.9 F 80 22 158/87 97 12/27/18 03:15 12/27/18 03:15 12/27/18 03:15 12/27/18 03:15 12/27/18 03:15 Oxygen Devices in Use Now: None Appearance: Female lying in bed in NAD Eyes: No Scleral Icterus Respiratory: Symmetrical Chest Expansion and Respiratory Effort, Clear to Auscultation Cardiovascular: NL Sounds; No Murmurs; No JVD, No Edema Abdominal: NL Sounds; No Tenderness; No Distention Extremities: No Edema Skin: No Rash or Ulcers Neurological: Alert and Oriented x 3, - - 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 Assess/Plan/Problems-Billing Assessment: Ms. Antonio is an 88 year old female with HTN, HLP and GERD that presents to ED with fall and weakness and rhabdo and finding of a new CVA with left sided weakness. - Patient Problems (1) CVA (cerebral vascular accident) Comment: - Subacute infarct in right basal ganglia with LLE weakness, MRI as above - Neurology consult appreciated - Start DAPT, atorvastatin 80mg - Referral for PMRU (2) Rhabdomyolysis Comment: - With PERRY and leukocytosis (improving), 2/2 prolonged time on the floor - continue IVF and monitor renal function (3) HTN (hypertension) Comment: - On lisinopril, hydralazine PRN (4) DVT prophylaxis Comment: - SCDs (5) Full code status Comment: Status and Disposition: Inpatient, dispo likely to PMRU for rehab
[2018-12-27] MEDS ORDERED: Docusate CAP* 100 MG PO PRN (14:52)
[2018-12-27] MEDS ORDERED: Polyethylene Glycol 3350* 17 GM PACKET PO PRN (14:53)
[2018-12-28 10:11] LABS: ABS Basophils 0.1 10^3/ul (0-0.2); ABS Eosinophils 0.2 10^3/ul (0-0.6); ABS Lymphocytes 1.1 10^3/ul (1.0-4.8); ABS Monocytes 0.9 10^3/ul (0-0.8); ABS Neutrophils 9.8 10^3/ul (1.5-7.7); Eosinophil % 1.3 %; Hematocrit 29 % (35-47); Hemoglobin 10.1 g/dL (12.0-16.0); Lymphocyte % 9.3 %; Mean Corpuscular HGB Conc 35 g/dL (31-36); Mean Corpuscular Hemoglobin 31 pg (27-31); Mean Corpuscular Volume 90 fL (80-97); Mean Platelet Volume 7.2 fL (7.4-10.4); Platelet Count 215 10^3/uL (150-450); Red Blood Count 3.25 10^6 /uL (3.70-4.87); Red Cell Distribution Width 15 % (10-15)
[2018-12-28] MEDS: Atorvastatin* 20 MG TAB PO SCH (10:11)
[2018-12-28] MEDS: Aspirin EC TAB* 81 MG TAB.EC PO SCH (10:11)
[2018-12-28] MEDS: Pantoprazole TAB * 40 MG TAB PO SCH (10:11)
[2018-12-28] MEDS: Lisinopril TAB* 10 MG PO SCH (10:12)
[2018-12-28] MEDS: Clopidogrel TAB* 75 MG PO SCH (10:12)
[2018-12-28] MEDS: NS 0.9% 1000 ML** 1,000 ML IV SCH (10:13)
[2018-12-28 10:26] LABS: BUN/Creatinine Ratio 29.2 (8-20); Calcium 8.1 mg/dL (8.6-10.3); EGFR African American 51.3 (>60); EGFR Non-African American 42.4 (>60); Potassium 4.1 mmol/L (3.5-5.0)
--- NOTE | 2018-12-28 13:11 | PN ---
Subjective Date of Service: 12/28/18 Interval History: Patient feeling well and has no complaints. No acute events overnight. Patient denies fever/chills, difficulty breathing, chest pain, abd pain. Objective Active Medications: Acetaminophen (Tylenol Tab*) 650 mg PO Q4H PRN PRN Reason: MILD PAIN or TEMP > 100.4 Aspirin (Aspirin Ec Tab*) 81 mg PO DAILY [facility] Stop: 01/16/19 23:59 Last Admin: 12/28/18 10:11 Dose: 81 mg Atorvastatin Calcium (Lipitor*) 60 mg PO DAILY [facility] Last Admin: 12/28/18 10:11 Dose: 60 mg Clopidogrel Bisulfate (Plavix Tab*) 75 mg PO DAILY [facility] Last Admin: 12/28/18 10:12 Dose: 75 mg Docusate Sodium (Colace Cap*) 100 mg PO BID PRN PRN Reason: CONSTIPATION Hydralazine HCl (Apresoline Iv*) 5 mg IV SLOW PU Q6H PRN PRN Reason: SBP>180 DBP>90 Lisinopril (Prinivil Tab*) 10 mg PO BID [facility] Last Admin: 12/28/18 10:12 Dose: 10 mg Magnesium Hydroxide (Milk Of Magnesia Liq*) 30 ml PO Q4H PRN PRN Reason: CONSTIPATION Pantoprazole Sodium (Protonix Tab*) 40 mg PO DAILY [facility] Last Admin: 12/28/18 10:11 Dose: 40 mg Polyethylene Glycol/Electrolytes (Miralax*) 17 gm PO DAILY PRN PRN Reason: CONSTIPATION Senna (Senokot 8.6 Mg Tab*) 1 tab PO BID PRN PRN Reason: CONSTIPATION Vital Signs - 8 hr 12/28/18 12/28/18 12/28/18 07:57 08:00 11:29 Temperature 98 F 98.2 F Pulse Rate 85 92 Respiratory 20 20 20 Rate Blood Pressure 184/74 153/68 (mmHg) O2 Sat by Pulse 97 98 Oximetry Oxygen Devices in Use Now: None Appearance: Elderly white female, sitting in chair, appearing in NAD Eyes: No Scleral Icterus, PERRLA Ears/Nose/Mouth/Throat: Mucous Membranes Moist Neck: NL Appearance and Movements; NL JVP Respiratory: Symmetrical Chest Expansion and Respiratory Effort, Clear to Auscultation Cardiovascular: NL Sounds; No Murmurs; No JVD, RRR Abdominal: - - abd soft, nontender, nondistended Extremities: No Edema, No Clubbing, Cyanosis Skin: No Rash or Ulcers Neurological: Alert and Oriented x 3 - 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 2D TTE: EF 55-60 %. No PFO Microbiology and Other Data: Microbiology 12/25/18 10:35 Urine Culture - Final Urine Diagnostic Imaging: . Assess/Plan/Problems-Billing Assessment: Ms. Antonio is an 88 year old female with HTN, HLP and GERD that presents to ED with fall and weakness and rhabdo and finding of a new CVA with left sided weakness. - Patient Problems (1) CVA (cerebral vascular accident) Current Visit: Yes Status: Acute Code(s): I63.9 - CEREBRAL INFARCTION, UNSPECIFIED SNOMED Code(s): 406235402 Comment: - Subacute infarct in right basal ganglia confirmed with MRI - UE weakness appears to be minimally improved - Neurology consult appreciated - Continue ASA, plavix, atorvastatin 80mg - Referral for PMRU (2) Rhabdomyolysis Current Visit: Yes Status: Acute Code(s): M62.82 - RHABDOMYOLYSIS SNOMED Code(s): 937089439 Comment: - With PERRY and leukocytosis, 2/2 prolonged time on the floor - Creatinine 1.2 today which is at baseline. Discontinuing IVF (3) HTN (hypertension) Current Visit: No Status: Acute Code(s): I10 - ESSENTIAL (PRIMARY) HYPERTENSION SNOMED Code(s): 94747317 Comment: - On lisinopril 20 mg po BID, changing to 40 mg po daily - remains hypertensive 3 days after CVA. SBP 150s-180s today - adding 5 mg amlodipine (4) DVT prophylaxis Current Visit: No Status: Acute Code(s): ALC2501 - SNOMED Code(s): 934701831 Comment: - SCDs (5) Full code status Current Visit: Yes Status: Acute Code(s): Z78.9 - OTHER SPECIFIED HEALTH STATUS SNOMED Code(s): 256051150 Comment: Status and Disposition: Inpatient, dispo likely to PMRU for rehab
[2018-12-28] MEDS ORDERED: Lisinopril TAB* 10 MG PO ONE (17:32)
[2018-12-28] MEDS: amLODIPine TAB* 5 MG PO SCH (18:09)
[2018-12-29 08:45] VITALS: BP 170/69
[2018-12-29] MEDS: Aspirin EC TAB* 81 MG TAB.EC PO SCH (08:54)
[2018-12-29] MEDS: amLODIPine TAB* 5 MG PO SCH (08:54)
[2018-12-29] MEDS: Pantoprazole TAB * 40 MG TAB PO SCH (08:54)
[2018-12-29] MEDS: Atorvastatin* 20 MG TAB PO SCH (08:54)
[2018-12-29] MEDS: Clopidogrel TAB* 75 MG PO SCH (08:55)
[2018-12-29] MEDS ORDERED: Lisinopril TAB* 10 MG PO SCH (09:00)
--- NOTE | 2018-12-30 01:43 | DS ---
CC: Dr. Cynthia Cam; Dr. Barnett * DISCHARGE SUMMARY: DATE OF ADMISSION: 12/25/18 DATE OF DISCHARGE: 12/29/18 PROVIDER: DIOR Dick. ATTENDING PHYSICIAN WHILE IN THE HOSPITAL: Dr. Yaritza Salinas * (dictated by DIOR Dick). PRIMARY CARE PROVIDER: Dr. Cynthia Cam. CONSULTING NEUROLOGIST: Dr. Barnett. PRIMARY DIAGNOSES: 1. 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 2. Rhabdomyolysis secondary to prolonged time on the floor. 3. PERRY secondary to rhabdomyolysis, resolved. SECONDARY DIAGNOSES: 1. Hypertension. 2. Hyperlipidemia. 3. Gastroesophageal reflux disease. STUDIES WHILE IN THE HOSPITAL: Brain MRI on 12/25/18, with an impression of acute nonhemorrhagic infarct of the right basal ganglia. Diffuse involutional change with chronic small-vessel ischemic changes. Mild sinus mucosal inflammatory disease with air-fluid level in the left frontal and maxillary sinus. In the correct clinical setting, this may represent acute sinusitis. Transthoracic echocardiogram on 10/09/18 with significant findings of grade 1 diastolic dysfunction, ejection fraction 55% to 60%. No regional wall motion abnormalities and negative bubble study. Pertinent Lab Data: Fasting LDL of 90. HISTORY OF PRESENT ILLNESS/HOSPITAL COURSE: Beverly Antonio is an 88-year-old white female with past medical history significant for hypertension, hyperlipidemia, and GERD who presented to the emergency department on 12/25/18 after a fall resulting in inability to ambulate. For further information, please see the admission history and physical dictated by Feli Martinez NP. In brief, the patient was found down in her apartment at [facility]. Emergency Medicine was called after the patient appeared to be confused. During her hospital stay, there was immediate concern for stroke and the patient was seen in consultation by Dr. Barnett, the neurologist. A lacunar stroke was found and the patient was not a candidate for tPA or thrombectomy. The patient was already taking Plavix at home, so she was additionally started on aspirin. Her statin was continued. During her hospital stay, she was evaluated by physical therapy and occupational therapy who determined that she had some acute needs, especially considering her residual weakness on the left side. She did have EPRRY secondary to her rhabdomyolysis, which continued to improve during her hospital stay with IV fluids. Ultimately, on 12/28/18, her creatinine was at her baseline. She was no longer needing fluids. Ultimately, she was accepted for admission to [facility] for inpatient rehabilitation. On the day of discharge, the patient is feeling well. She has no complaints. She denies chest pain, difficulty breathing, shortness of breath, or any exertional changes. DISCHARGE PLAN: Diet: Regular unrestricted diet. Activity: The patient may return to her normal activities as tolerated. The patient will be participating in rehabilitation on the [facility] (Physical Medicine Rehabilitation Unit). She should have repeat BMP in a week to follow her hyponatremia, which appears to be overall chronic. She should have followup with her primary care provider when she completes rehabilitation regarding this hospitalization. DISCHARGE MEDICATIONS: Aspirin 81 mg p.o. daily and then to be discontinued on 01/16/19 with final dose on 01/15/19. [place] Medications: 1. Amlodipine 5 mg p.o. daily. 2. Lisinopril 40 mg p.o. daily. 3. Docusate 100 mg p.o. b.i.d. p.r.n. for constipation. Continued Home Medications: 1. Pantoprazole 40 mg p.o. daily. 2. Lipitor 60 mg p.o. daily. CONDITION ON DISCHARGE: Stable. DISPOSITION: To Physical Medicine Rehabilitation Unit. TIME SPENT: Approximately 35 minutes were spent on this discharge, approximately half of this time was in reviewing the course of the length of the stay. DIOR DICK [id number]/[facility] #: [id number] MTDD
== END 2018-12-29 10:40 | DRG 65 ==
LOC: ED 09:36 → MEDTELE 15:22
PROVIDERS: ADMIT Internal Medicine; ATTEND Internal Medicine
DX: I63.89 Other cerebral infarction (principal); G81.94 Hemiplegia, unspecified affecting left nondominant side; M62.82 Rhabdomyolysis; N17.9 Acute kidney failure, unspecified; I11.0 Hypertensive heart disease with heart failure; I50.9 Heart failure, unspecified; E86.0 Dehydration; E83.42 Hypomagnesemia; E78.5 Hyperlipidemia, unspecified; K21.9 Gastro-esophageal reflux disease without esophagitis; J32.1 Chronic frontal sinusitis; J32.0 Chronic maxillary sinusitis; R74.8 Abnormal levels of other serum enzymes; R29.810 Facial weakness; R47.81 Slurred speech; M85.88 Other specified disorders of bone density and structure, other site; I27.20 Pulmonary hypertension, unspecified; M50.30 Other cervical disc degeneration, unspecified cervical region; R29.703 NIHSS score 3; W18.30XA Fall on same level, unspecified, initial encounter; Z79.02 Long term (current) use of antithrombotics/antiplatelets; Z79.899 Other long term (current) drug therapy; Z87.891 Personal history of nicotine dependence; Y92.000 Kitchen of unspecified non-institutional (private) residence as the place of occurrence of the external cause
CPT/HCPCS: 36415; 70450; 70486; 70544; 70547; 70551; 71045; 72125; 72192; 80048; 80053; 80061; 81003; 81015; 82330; 82550; 83605; 83735; 84443; 84484; 85025; 87086; 93005; 93306; 99284; A9270-GY; G8978-GP-CM; G8979-GP-CI; G8987-GO-CL; G8988-GO-CI; J3475

== ENCOUNTER 2018-12-29 09:36 | Inpatient (IN) | payer MEDICARE ==
[2018-12-29] MEDS ORDERED: Sodium Phosphate ADULT ENEMA* 118 ml bottle PR PRN (11:32)
--- NOTE | 2018-12-29 19:45 | HP ---
ADMISSION HISTORY AND PHYSICAL: DATE OF ADMISSION: 12/29/18 REASON FOR ADMISSION: Right basal ganglia stroke with left-sided weakness. HISTORY OF PRESENT ILLNESS: Beverly Antonio is an 88-year-old female. She lives at [facility]. She has a medical history significant for hypertension and hyperlipidemia. She was admitted to the hospital in August 2017 with confusion and mental status changes. She was discharged home with the diagnosis of having had a TIA. She was put on Plavix. The patient had spoken to her daughter on 12/24/18. She seemed to be in her usual state of health. The patient's daughter could not reach her on 12/25/18. She called somebody from [facility] to go check on her. Apparently, she was found on the floor. It is unclear how long she was down. She was brought to the hospital for evaluation. The patient had a CAT scan of her brain showing an infarct of the right basal ganglia and internal capsule, which was new from August 2017. She had a neurology consult and then had an MRI of her brain done on 12/25/18, which showed a new right nonhemorrhagic infarct of the right basal ganglia. She was seen by Dr. Barnett, who recommended putting her on aspirin and Plavix for 21 days and then resuming Plavix alone. The patient also was advised to increase her Lipitor from 40 mg to 80 mg daily. The patient was felt to have physical therapy and occupational therapy needs. She may also have speech therapy needs. She is now being admitted for inpatient rehab so that she might return to independent living. PAST MEDICAL HISTORY: Significant for the aforementioned TIA in August 2017, hypertension, hyperlipidemia. The patient also has a history of gastroesophageal reflux disease and she has had an ERCP in the past. CURRENT MEDICATIONS: Include: 1. Aspirin. 2. Plavix. 3. Norvasc. 4. Lipitor. 5. Lisinopril. 6. Protonix. ALLERGIES: The patient has no known drug allergies. SOCIAL HISTORY: She is a nonsmoker, nondrinker. Lives by herself in an apartment in [facility]. She has one daughter who lives locally, who works for the [employer] as a teacher. Her daughter lives in [place]. REVIEW OF SYSTEMS: The patient reports no current shortness of breath or chest pain. PHYSICAL EXAMINATION VITAL SIGNS: The patient's temperature is 98.0, blood pressure is 140/65, pulse 88, respirations 18. HEENT: Her extraocular movements are intact. Tongue is midline. NECK: Supple. LUNGS: Sounded clear to auscultation bilaterally. HEART: Sounds were regular. S1 and S2 were audible. ABDOMEN: Soft and nontender. EXTREMITIES: Showed normal tone. Peripheral pulses were intact. NEUROLOGIC: The patient was awake, alert, oriented. Muscle strength appeared to be about 4 to 4+/5 in the right arm, except the right triceps, which was closer to 4/5. Her left arm had roughly 3+/5 strength. FUNCTIONAL EXAM: The patient transfers with min to mod assistance. ASSESSMENT: Right basal ganglia infarct with left-sided weakness. PLAN: We are going to integrate her into a comprehensive and therapeutic rehab program with the following goals: 1. Physical Therapy will work with the patient. They are going to work on functional transfer training and ambulation training with a walker. 2. Occupational Therapy will see the patient and work on her activities of daily living including toileting and toilet transfers. 3. Consider Speech Therapy for cognitive linguistic treatment. 4. Heparin for DVT prophylaxis. 5. Continue aspirin and Plavix for 21 days, then Plavix alone. 6. Explosive Ordnance Disposal Manager will be closely involved to make sure that any services and equipment the patient requires are in place prior to discharge. 7. For her high blood pressure, we will continue lisinopril and Norvasc. 8. Lipitor 80 mg daily for hypercholesterolemia. 9. For her GERD, we will continue Protonix. 10. Family training as appropriate. 11. Advance directives: The patient is a full code. Her daughter is her surrogate decision maker. 12. Home with appropriate services. ESTIMATED LENGTH OF STAY: 17 to 21 days. [id number]/CPS #: [id number] [facility]
[2018-12-29] MEDS: Heparin VIAL(*) 5000 UNITS/ML VIAL (FIVE THOUSAND) SUBCUT SCH (21:58)
[2018-12-29] MEDS: Docusate CAP* 100 MG PO SCH (21:58)
[2018-12-30] MEDS: Lisinopril TAB* 10 MG PO SCH (08:12)
[2018-12-30] MEDS: Pantoprazole TAB * 40 MG TAB PO SCH (08:12)
[2018-12-30] MEDS: Aspirin EC TAB* 81 MG TAB.EC PO SCH (08:12)
[2018-12-30] MEDS: Heparin VIAL(*) 5000 UNITS/ML VIAL (FIVE THOUSAND) SUBCUT SCH ×2 (08:13→20:43)
[2018-12-30] MEDS: Docusate CAP* 100 MG PO SCH ×2 (08:13→20:43)
[2018-12-30] MEDS: amLODIPine TAB* 5 MG PO SCH (08:13)
[2018-12-30] MEDS: Clopidogrel TAB* 75 MG PO SCH (08:13)
--- NOTE | 2018-12-30 12:27 | PMRUTEAM ---
PMRU: Team Meeting Current Status: Nursing: Current Status Skin Deviations [left wrist] Pressure Ulcer Skin Deviations [left forearm] Bruise,Previous Access Point Skin Deviations [Right Hand] Bruise Skin Deviations [Left Arm] Abrasion Skin Deviations [Left Shoulder Skin Tear ] Skin Deviation Description [ pt s/p fall and down for >12 hours; annalise from left wrist] watch. not open. Skin Deviation Description [ blood draw Right Hand] Skin Deviation Description [ abrasion noted to left upper arm. washed with soap Left Arm] and water. Optifoam applied. Bladder Current Status incontinent of urine Bowel Current Status colace given Nutrition Current Status appetite good Medication Current Status declined Tylenol for l shoulder pain Physical Therapy: Current Status Bed Mobility Assistance Max Assist,2 or More Person Assist Transfer Mobility Assistance Total Assist Transfer/Bed Mobility EZ Stand Recommended Devices Ambulation Assistance Unable Ambulation Assistive Devices Rolling Walker Stairs Assistance Not Tested Objective Comments AM-PAC raw scvore 5/20 CMS raw score 100% Occupational Therapy: Current Status Upper Body Dressing Max Asst Lower Body Dressing Total Assist,2 Person Assist Bathing Max Asst,2 Person Assist Toileting Total Assist,2 Person Assist Toilet Transfer Total Assist,2 Person Assist Toilet Transfer Progress EZ stand Shower Transfer Progress NA Eating Independent Rec Therapy: Current Status Summary of Assessment and Recreation Therapy services introduced and Clinical Impression assessment completed. Pt. is open to continued leisure visits but not pet therapy. Treatment Goals Pt. will engage in leisure activities while on the unit. Treatment Plan Provide recreation therapy services and encourage involvement. Goals: Physical Therapy: Initial Goals Bed Mobility Assistance Independent Transfer Mobility Assistance Independent Transfer/Bed Mobility Rolling Walker Recommended Devices Ambulation Independent Ambulation Recommended Devices Rolling Walker Ambulation Distance 150 Stairs Assistance Independent Stair Recommended Devices Two Rails Number of Stairs 5 Physical Therapy: Updated Goals Transfer/Bed Mobility EZ Stand Recommended Devices Occupational Therapy: Initial Goals Goals to be Completed in (Days 21-28 days ) Upper Body Bathing Routine Independent Lower Body Bathing Routine Modified Independent with Upper Body Dressing Routine Independent Lower Body Dressing Routine Modified Independent with Toilet Hygeine and Clothing Modified Independent with Management Routine Toilet Transfer Routine Modified Independent with Tub Transfer Routine Modified Independent with Functional Transfers for ADL Modified Independent with Grooming Routine Modified Independent with Feeding Routine Independent Nursing: Goals Bladder Goal supervision Bowel Goal independent Nutrition Goal 100% of all meals consumed Medication Goal independent Care Plan: Care Plan ADL's - Improve/Maintain Start: 12/29/18 14:52 Freq: DAILY@699,0 Status: Active Target: 01/19/19 Protocol: Activity Type Activity Date Activity User E-Sign Co-Sign Detail Recorded Client Recorded Date Recorded By Document 12/29/18 14:52 [id number] [id number] 12/29/18 14:53 [id number] 12/29/18 14:52 PMRU Outcome: ADL's/ADL Transfers Orders/Interventions Occupational Therapy Evaluation & Treatment Communication Tool in Patient Room Device Yes Address Deficits Secondary To: CVA Patient to receive OT 5x/wk for 60-120 Therex min/day Self Care Management Group Therapy Neuromuscular ReEducation UE/LE ADL's with Assist Yes: Mehdi ADL Transfers with Assist Yes: Mehdi Toileting: Transfers,Clothing Management Yes: Mehdi ,Hygeine w/Assist Light Kitchen/Laundry w/Assist Yes: Mehdi Other Outcome/Goals Pt participated well in treatment session, pt normally is very independent and does appear frustrated at times over assistance currently required to complete self care tasks. Pt reports discomfort/pain in left side of neck down into back and has difficulty attempting to turn head toward left side, will continue to assess if purely due to muscle stiffness/pain or possibly an inattention/ neglect. Progression Toward Outcome/Goals Goal Initiation Cardiovascular- Improve/Maintain Start: 12/29/18 23:49 Freq: DAILY@[id number] Status: Active Target: 01/16/19 Protocol: Activity Type Activity Date Activity User E-Sign Co-Sign Detail Recorded Client Recorded Date Recorded By Document 12/30/18 09:32 [id number] 12/30/18 09:37 [id number] 12/30/18 09:32 PMRU Outcome: Cardiovascular Vital Signs q Shift for 48hrs Then BID Yes Daily Weight Ordered No Current Cardiovascular Outcome/Goal Maintain/ Achieve Baseline HR, BP , Perfusion Maintain/ Improve Perfusion Free of Abnormal Cardiac Symptoms Progression Toward Outcome/Goal Progressing Communication-Improve/Maintain Start: 12/29/18 23:49 Freq: DAILY@[id number] Status: Active Target: 01/16/19 Protocol: Activity Type Activity Date Activity User E-Sign Co-Sign Detail Recorded Client Recorded Date Recorded By Document 12/30/18 09:32 [id number] [email or web address] 12/30/18 09:37 [id number] 12/30/18 09:32 PMRU Outcome: Communication/Cognitive Status Current Communication Outcome/Goals Makes Needs Known Effectively Progression Toward Outcomes/Goals Progressing Coping/Psych-Improve/Maintain Start: 12/29/18 23:49 Freq: DAILY@0700,1900 Status: Active Target: 01/16/19 Protocol: Activity Type Activity Date Activity User E-Sign Co-Sign Detail Recorded Client Recorded Date Recorded By Document 12/30/18 09:32 [id number] [email or web address] 12/30/18 09:37 [id number] 12/30/18 09:32 PMRU Outcome: Coping/Psychosocial Current Coping Outcome/Goals Verbalization of Acceptance of Rehab Admit Utilization of Appropriate Problem Solving Techniques Willingness to Participate in Treatment Plan and Basic Needs Progression Toward Outcome/Goals Progressing Current Psychosocial Outcome/Goals Maintain/ Improve Emotional Health Demonstrates Knowledge of Healthy Coping Mechanisms Available Cooperate/ Participate in Plan Progression Toward Outcome/Goals Progressing DVT Prophylaxis- Improve/Maintain Start: 12/29/18 23:49 Freq: DAILY@[id number] Status: Active Target: 01/16/19 Protocol: Activity Type Activity Date Activity User E-Sign Co-Sign Detail Recorded Client Recorded Date Recorded By Document 12/30/18 09:32 [id number] 12/30/18 09:37 [id number] 12/30/18 09:32 PMRU Outcome: DVT Prophylaxis Current DVT Outcome/Goals Remains Free of DVT Complies with DVT Prophylaxis /Treatment Demonstrates Knowledge of DVT Prevention/ Treatment TEDS Stockings on Every AM, Off at HS Progression Toward Outcome/Goals Progressing Discharge Planning - Improve/Maintain Start: 12/29/18 23:49 Freq: DAILY@[id number] Status: Active Target: 01/16/19 Protocol: Activity Type Activity Date Activity User E-Sign Co-Sign Detail Recorded Client Recorded Date Recorded By Document 12/30/18 04:00 [id number] 12/30/18 08:02 [id number] 12/30/18 04:00 PMRU Outcome: Discharge Planning Update Patient Family No Current Discharge Planning Outcome/Goals Demonstrates Understanding of Discharge Plan Progression Toward Outcome/Goals Goal Initiation Education-Improve/Maintain Start: 12/29/18 23:49 Freq: DAILY@0700,1900 Status: Active Target: 01/16/19 Protocol: Activity Type Activity Date Activity User E-Sign Co-Sign Detail Recorded Client Recorded Date Recorded By Document 12/30/18 09:32 [id number] [email or web address] 12/30/18 09:37 [id number] 12/30/18 09:32 PMRU Outcome: Education Current Education Outcome/Goals Demonstrate/ Verbalize Understanding of Written Discharge Instructions Demonstrates Skills Encourage Questions Progression Toward Outcome/Goals Progressing /GI-Improve/Maintain Start: 12/29/18 23:49 Freq: DAILY@0700,1900 Status: Active Target: 01/16/19 Protocol: Activity Type Activity Date Activity User E-Sign Co-Sign Detail Recorded Client Recorded Date Recorded By Document 12/30/18 09:32 [id number] [email or web address] 12/30/18 09:37 [id number] 12/30/18 09:32 PMRU Outcome: Genitourinary/ Gastrointestinal Current Gastrointestinal Outcome/Goals Maintain/ Achieve Bowel Regularity in Accordance with Pt's Baseline Remain Free of Emesis Prevent Constipation Bowel Regularity at Home Laxatives as Ordered Progression Toward Outcome/Goals Progressing Current Genitourinary Outcome/Goals Maintain/ Achieve Urinary Continence Remain Free of Hospital- Acquired UTI Progression Toward Outcome/Goals Progressing Medication Administration Start: 12/29/18 23:49 Freq: DAILY@699,1900 Status: Active Target: 01/16/19 Protocol: Activity Type Activity Date Activity User E-Sign Co-Sign Detail Recorded Client Recorded Date Recorded By Document 12/30/18 09:32 [id number] [email or web address] 12/30/18 09:37 [id number] 12/30/18 09:32 PMRU Outcome: Medication Administration Assess Patient Knowledge/Teach Med Yes Education for all Meds Current Ear Muff Assembler Outcome/Goals Patient Independent with Medication Administration at Home Demonstrates Understanding Progression Towards Outcome/Goals Progressing Is Patient Going Home on Lovenox? No Mobility- Improve/Maintain Start: 12/29/18 18:39 Freq: DAILY@0700,1900 Status: Active Target: 12/30/18 Protocol: Activity Type Activity Date Activity User E-Sign Co-Sign Detail Recorded Client Recorded Date Recorded By Document 12/29/18 18:39 [id number] [email or web address] 12/29/18 18:40 [id number] 12/29/18 18:39 PMRU Outcome: Mobility Physical Therapy Evaluation and Yes Treatment Activity OOB with Assistance Yes WBAT Yes Device Yes Assistance Yes Patient to be seen 5x/wk for 60-120 min/ Therex day for: Mobility Training Gait Training Balance Other Current Mobility Outcome/Goals Maintain/ Achieve Baseline Mobility Status Improve Mobility Status Demonstrates Proper Use of Assistive Devices Free from Complications of Immobility Progression Toward Outcome/Goals Goal Initiation Bed Mobility Yes: independent Transfers Yes: independent with rolling walker. Gait x ft Yes: independnet with rolling walker to 150' Up/Down Stairs Yes: independent up/ down 5 stairs with 2 rails. Neurological- Improve/Maintain Start: 12/29/18 23:49 Freq: DAILY@699,1899 Status: Active Target: 01/16/19 Protocol: Activity Type Activity Date Activity User E-Sign Co-Sign Detail Recorded Client Recorded Date Recorded By Document 12/30/18 09:32 [id number] [email or web address] 12/30/18 09:37 [id number] 12/30/18 09:32 PMRU Outcome: Neurological Weakness/Aphasia Weakness Left Side Current Neurological Outcome/Goals Maintain/ Achieve Baseline Neurological Status Improve Neurological Status Prevent Avoidable Neurological Decline Demonstrate Knowledge of Prevention/Tx of Neuro Disorders/ Complication Maintain/ Improve Strength/ROM Progression Toward Outcome/Goals Progressing Pain/Comfort- Improve/Maintain Start: 12/30/18 08:03 Freq: DAILY@ Status: Active Target: 01/16/19 Protocol: Activity Type Activity Date Activity User E-Sign Co-Sign Detail Recorded Client Recorded Date Recorded By Document 12/30/18 09:32 [id number] [email or web address] 12/30/18 09:37 [id number] 12/30/18 09:32 PMRU Outcome: Pain/Comfort Current Pain/Comfort Outcome/Goals Demonstrates Knowledge and Use of Available Comfort Measures Achieves Acceptable Comfort/Pain Level as Determined by Patient/Condit Maintain Comfort Level Allowing Patient to Fully Participate in Rehab Progression Toward Outcome/Goals Progressing Rec Therapy- Improve/Maintain Start: 12/29/18 16:49 Freq: DAILY@ Status: Active Target: 12/30/18 Protocol: Activity Type Activity Date Activity User E-Sign Co-Sign Detail Recorded Client Recorded Date Recorded By Document 12/29/18 16:49 [id number] 12/29/18 16:49 [id number] 12/29/18 16:49 PMRU Outcome: Recreation Therapy Current Rec Ther Outcome/Goals Complete Rec Therapy Assessment Meet with Patient Regularly for Support Encourage Leisure Involvement Progression Toward Outcome/Goals Goal Initiation Safety- Improve/Maintain Start: 12/29/18 11:22 Freq: DAILY@699,1899 Status: Active Target: 01/16/19 Protocol: Activity Type Activity Date Activity User E-Sign Co-Sign Detail Recorded Client Recorded Date Recorded By Document 12/30/18 09:32 [id number] [email or web address] 12/30/18 09:37 [id number] 12/30/18 09:32 PMRU Outcome: Safety Current Safety Outcome/Goals Remain Free of Injury or Harm Cooperates with Safety Measures for Least Restrictive Environment Prevent Falls/ Injury Other Safety Outcome/Goals PA/ba on Progression Toward Outcome/Goals Progressing Skin- Improve/Maintain Start: 12/29/18 23:49 Freq: DAILY@699,0 Status: Active Target: 01/16/19 Protocol: Activity Type Activity Date Activity User E-Sign Co-Sign Detail Recorded Client Recorded Date Recorded By Document 12/30/18 09:32 [id number] 12/30/18 09:37 [id number] 12/30/18 09:32 PMRU Outcome: Skin Skin Risk Level Mild Risk Skin Orders Turn/Position q2hr While in Bed Other Skin Orders Comment new bed Current Skin Outcome/Goals Maintain/ Improve Skin Integrity Free from Pressure Injury Progression Toward Outcome/Goals Progressing Medicine Note: Length of Stay: 25 days Anticipated Discharge Destination: Tentative Discharge Date: January 23, 2019 Discharged to: home
[2018-12-30] MEDS: Atorvastatin* 80 MG TAB PO SCH (17:42)
--- NOTE | 2018-12-30 21:43 | PN ---
Progress Note Date of Service: 12/30/18 Note: PEPPER RAMOS was visited. Therapy notes read and reviewed. She was discussed ininterdisciplinary plan of care rounds. Overall doing okay. She has trouble with motor planning and will ask [employer] H[employer]TER [employer]PER to see Current Medications: Active Medications Generic Name Dose Route Start Last Admin Trade Name Freq PRN Reason Stop Dose Admin Acetaminophen 650 mg 12/29/18 11:32 Tylenol Tab* PO Q6H PRN MILD PAIN or TEMP > 100.4 Amlodipine Besylate 2.5 mg 12/30/18 09:00 12/30/18 08:13 Norvasc Tab* PO 2.5 mg DAILY CARLEE Administration Aspirin 81 mg 12/30/18 09:00 12/30/18 08:12 Aspirin Ec Tab* PO 81 mg DAILY CARLEE Administration Atorvastatin Calcium 80 mg 12/30/18 17:00 12/30/18 17:42 Lipitor* PO 80 mg 1700 CARLEE Administration Clopidogrel Bisulfate 75 mg 12/30/18 09:00 12/30/18 08:13 Plavix Tab* PO 75 mg DAILY CARLEE Administration Docusate Sodium 100 mg 12/29/18 21:00 12/30/18 20:43 Colace Cap* PO 100 mg BID CARLEE Administration Heparin Sodium (Porcine) 5,000 units 12/29/18 21:00 12/30/18 20:43 Heparin Vial(*) SUBCUT 5,000 units Q12HR CARLEE Administration Lisinopril 40 mg 12/30/18 09:00 12/30/18 08:12 Prinivil Tab* PO 40 mg DAILY CARLEE Administration Pantoprazole Sodium 40 mg 12/30/18 09:00 12/30/18 08:12 Protonix Tab* PO 40 mg DAILY CARLEE Administration Senna 2 tab 12/29/18 11:32 Senokot 8.6 Mg Tab* PO BEDTIME PRN CONSTIPATION Sodium Biphosphate/Sodium Phosphate 1 bottle 12/29/18 11:32 Fleet Enema* [place] DAILY PRN CONSTIPATION Vital Signs: Vital Signs Temp Pulse Resp BP Pulse Ox 97.8 F 89 20 155/59 100 12/30/18 15:52 12/30/18 15:52 12/30/18 15:52 12/30/18 15:52 12/30/18 15:52 Exam: GENERAL: No distress HEENT: Left facial droop LUNGS: Clear HEART: Reg rhythm, II/ murmur ABDOMEN: Soft EXTREMITIES: Normal tone NEUROLOGIC: A&O. Sensation appears intact. Left arm 4/5, right triceps 4/5, legs about 4/5 Assessment/Plan: 1. 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 Hypercholesterolemia: Lipitor 3. DVT Prophylaxis: Heparin S/Q 4. Advance Directives: Full Code 5. HTN: Lisinopril/Norvasc 12/30/18 21:46 12/30/18 21:47 12/30/18 21:48
[2018-12-31 06:41] LABS: ABS Basophils 0.1 10^3/ul (0-0.2); ABS Eosinophils 0.4 10^3/ul (0-0.6); ABS Lymphocytes 1.6 10^3/ul (1.0-4.8); ABS Monocytes 1.1 10^3/ul (0-0.8); ABS Neutrophils 5.3 10^3/ul (1.5-7.7); Eosinophil % 5.2 %; Hematocrit 28 % (35-47); Hemoglobin 9.7 g/dL (12.0-16.0); Lymphocyte % 19.2 %; Mean Corpuscular HGB Conc 35 g/dL (31-36); Mean Corpuscular Hemoglobin 31 pg (27-31); Mean Corpuscular Volume 88 fL (80-97); Mean Platelet Volume 7.2 fL (7.4-10.4); Platelet Count 284 10^3/uL (150-450); Red Blood Count 3.16 10^6 /uL (3.70-4.87); Red Cell Distribution Width 15 % (10-15); White Blood Count 8.5 10^3/uL (3.5-10.8)
[2018-12-31 06:52] LABS: Albumin 3.1 g/dL (3.2-5.2); BUN/Creatinine Ratio 28.1 (8-20); Calcium 8.5 mg/dL (8.6-10.3); EGFR African American 54.4 (>60); Potassium 4.6 mmol/L (3.5-5.0); Total Bilirubin 0.3 mg/dL (0.2-1.0); Total Protein 6.1 g/dL (6.4-8.9)
[2018-12-31] MEDS: Docusate CAP* 100 MG PO SCH ×2 (08:20→21:31)
[2018-12-31] MEDS: amLODIPine TAB* 5 MG PO SCH (08:21)
[2018-12-31] MEDS: Aspirin EC TAB* 81 MG TAB.EC PO SCH (08:21)
[2018-12-31] MEDS: Pantoprazole TAB * 40 MG TAB PO SCH (08:21)
[2018-12-31] MEDS: Clopidogrel TAB* 75 MG PO SCH (08:21)
[2018-12-31] MEDS: Lisinopril TAB* 10 MG PO SCH (08:22)
[2018-12-31] MEDS: Heparin VIAL(*) 5000 UNITS/ML VIAL (FIVE THOUSAND) SUBCUT SCH ×2 (08:23→21:31)
[2018-12-31] MEDS: Acetaminophen TAB* 325 MG PO PRN (15:52)
[2018-12-31] MEDS: Atorvastatin* 80 MG TAB PO SCH (17:13)
--- NOTE | 2018-12-31 21:27 | PN ---
Progress Note Date of Service: 12/31/18 Note: PEPPER RAMOS was visited. Therapy notes read and reviewed. She has been doing therapy and seems ok. Still therapists note some planning problems Current Medications: Active Medications Generic Name Dose Route Start Last Admin Trade Name Freq PRN Reason Stop Dose Admin Acetaminophen 650 mg 12/29/18 11:32 12/31/18 15:52 Tylenol Tab* PO 650 mg Q6H PRN Administration MILD PAIN or TEMP > 100.4 Amlodipine Besylate 2.5 mg 12/30/18 09:00 12/31/18 08:21 Norvasc Tab* PO 2.5 mg DAILY CARLEE Administration Aspirin 81 mg 12/30/18 09:00 12/31/18 08:21 Aspirin Ec Tab* PO 81 mg DAILY CARLEE Administration Atorvastatin Calcium 80 mg 12/30/18 17:00 12/31/18 17:13 Lipitor* PO 80 mg 1700 CARLEE Administration Clopidogrel Bisulfate 75 mg 12/30/18 09:00 12/31/18 08:21 Plavix Tab* PO 75 mg DAILY CARLEE Administration Docusate Sodium 100 mg 12/29/18 21:00 12/31/18 08:20 Colace Cap* PO 100 mg BID CARLEE Administration Heparin Sodium (Porcine) 5,000 units 12/29/18 21:00 12/31/18 08:23 Heparin Vial(*) SUBCUT 5,000 units Q12HR CARLEE Administration Lisinopril 40 mg 12/30/18 09:00 12/31/18 08:22 Prinivil Tab* PO 40 mg DAILY CARLEE Administration Pantoprazole Sodium 40 mg 12/30/18 09:00 12/31/18 08:21 Protonix Tab* PO 40 mg DAILY CARLEE Administration Senna 2 tab 12/29/18 11:32 Senokot 8.6 Mg Tab* PO BEDTIME PRN CONSTIPATION Sodium Biphosphate/Sodium Phosphate 1 bottle 12/29/18 11:32 Fleet Enema* [place] DAILY PRN CONSTIPATION Vital Signs: Vital Signs Temp Pulse Resp BP Pulse Ox 97.8 F 83 20 156/60 100 12/31/18 17:23 12/31/18 17:23 12/31/18 17:23 12/31/18 17:23 12/31/18 17:23 Lab Results: Laboratory Results - last 24 hr 12/31/18 12/31/18 06:16 06:16 WBC 8.5 RBC 3.16 L Hgb 9.7 L Hct 28 L MCV 88 MCH 31 MCHC 35 RDW 15 Plt Count 284 MPV 7.2 L Neut % (Auto) 61.9 Lymph % (Auto) 19.2 [place] % (Auto) 13.1 Eos % (Auto) 5.2 Baso % (Auto) 0.6 Absolute Neuts (auto) 5.3 Absolute Lymphs (auto) 1.6 Absolute Monos (auto) 1.1 H Absolute Eos (auto) 0.4 Absolute Basos (auto) 0.1 Absolute Nucleated RBC 0.0 Nucleated RBC % 0.0 Sodium 133 L Potassium 4.6 Chloride 105 Carbon Dioxide 21 L Anion Gap 7 BUN 32 H Creatinine 1.14 H Est GFR ( Amer) 54.4 Est GFR (Non-Af Amer) 45.0 BUN/Creatinine Ratio 28.1 H Glucose 114 H Calcium 8.5 L Total Bilirubin 0.30 AST 44 H ALT 57 H Alkaline Phosphatase 45 Total Protein 6.1 L Albumin 3.1 L Globulin 3.0 Albumin/Globulin Ratio 1.0 Exam: GENERAL: No distress HEENT: Left facial droop LUNGS: Clear HEART: Reg rhythm, II/ murmur ABDOMEN: Soft EXTREMITIES: Normal tone NEUROLOGIC: A&O. Sensation appears intact. Left arm 4/5, right triceps 4/5, legs about 4/5 Assessment/Plan: 1. 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 Hypercholesterolemia: Lipitor 3. DVT Prophylaxis: Heparin S/Q 4. Advance Directives: Full Code 5. HTN: Lisinopril/Norvasc 12/31/18 21:27
[2019-01-01 00:02] LABS: Urine Appearance Cloudy; Urine Bacteria 3+ (Absent); Urine Bilirubin Negative (Negative); Urine Blood Negative (Negative); Urine Color Yellow; Urine Glucose Negative (Negative); Urine Ketones Negative (Negative); Urine Nitrite Negative (Negative); Urine Protein Negative (Negative); Urine Red Blood Cell Absent (Absent); Urine Specific Gravity 1.008 (1.010-1.030); Urine Squamous Epithelial Cell Present (Absent); Urine Urobilinogen Negative (Negative); Urine White Blood Cell 3+(>20/hpf) (Absent)
[2019-01-01] MEDS: Heparin VIAL(*) 5000 UNITS/ML VIAL (FIVE THOUSAND) SUBCUT SCH ×2 (08:42→20:37)
[2019-01-01] MEDS: amLODIPine TAB* 5 MG PO SCH (08:43)
[2019-01-01] MEDS: Aspirin EC TAB* 81 MG TAB.EC PO SCH (08:43)
[2019-01-01] MEDS: Lisinopril TAB* 10 MG PO SCH (08:44)
[2019-01-01] MEDS: Pantoprazole TAB * 40 MG TAB PO SCH (08:44)
[2019-01-01] MEDS: Docusate CAP* 100 MG PO SCH ×2 (08:44→20:37)
[2019-01-01] MEDS: Clopidogrel TAB* 75 MG PO SCH (08:44)
[2019-01-01] MEDS ORDERED: Sulfamethox/Trimethoprim DS 800/160* TAB PO ONE (13:00)
--- NOTE | 2019-01-01 17:44 | PN ---
Progress Note Date of Service: 01/01/19 Note: PEPPER RAMOS was visited. Therapy notes read and reviewed. Doing a little better today but still needs EZ stand to transfer. Continues to note fatigue but was quite good this evening Current Medications: Active Medications Generic Name Dose Route Start Last Admin Trade Name Freq PRN Reason Stop Dose Admin Acetaminophen 650 mg 12/29/18 11:32 12/31/18 15:52 Tylenol Tab* PO 650 mg Q6H PRN Administration MILD PAIN or TEMP > 100.4 Amlodipine Besylate 2.5 mg 12/30/18 09:00 01/01/19 08:43 Norvasc Tab* PO 2.5 mg DAILY CARLEE Administration Aspirin 81 mg 12/30/18 09:00 01/01/19 08:43 Aspirin Ec Tab* PO 81 mg DAILY CARLEE Administration Atorvastatin Calcium 80 mg 12/30/18 17:00 12/31/18 17:13 Lipitor* PO 80 mg 1700 CARLEE Administration Clopidogrel Bisulfate 75 mg 12/30/18 09:00 01/01/19 08:44 Plavix Tab* PO 75 mg DAILY CARLEE Administration Docusate Sodium 100 mg 12/29/18 21:00 01/01/19 08:44 Colace Cap* PO 100 mg BID CARLEE Administration Heparin Sodium (Porcine) 5,000 units 12/29/18 21:00 01/01/19 08:42 Heparin Vial(*) SUBCUT 5,000 units Q12HR CARLEE Administration Lisinopril 40 mg 12/30/18 09:00 01/01/19 08:44 Prinivil Tab* PO 40 mg DAILY CARLEE Administration Pantoprazole Sodium 40 mg 12/30/18 09:00 01/01/19 08:44 Protonix Tab* PO 40 mg DAILY CARLEE Administration Senna 2 tab 12/29/18 11:32 Senokot 8.6 Mg Tab* PO BEDTIME PRN CONSTIPATION Sodium Biphosphate/Sodium Phosphate 1 bottle 12/29/18 11:32 Fleet Enema* [place] DAILY PRN CONSTIPATION Trimethoprim/Sulfamethoxazole 1 tab 01/01/19 21:00 Bactrim Ss 400/80 Tab* PO BID [facility] Vital Signs: Vital Signs Temp Pulse Resp BP Pulse Ox 98.2 F 80 16 148/63 98 01/01/19 16:00 01/01/19 16:00 01/01/19 16:00 01/01/19 16:00 01/01/19 16:57 Lab Results: Laboratory Results - last 24 hr 12/31/18 23:50 Urine Color Yellow Urine Appearance Cloudy Urine pH 5.0 Ur Specific [place] 1.008 L Urine Protein Negative Urine Ketones Negative Urine Blood Negative Urine Nitrate Negative Urine Bilirubin Negative Urine Urobilinogen Negative Ur Leukocyte Esterase 2+ A Urine WBC (Auto) 3+(>20/hpf) A Urine RBC (Auto) Absent Ur Squamous Epith Cells Present A Urine Bacteria 3+ A Urine Glucose Negative Exam: GENERAL: No distress HEENT: Left facial droop LUNGS: Clear HEART: Reg rhythm, II/ murmur ABDOMEN: Soft EXTREMITIES: Normal tone NEUROLOGIC: A&O. Sensation appears intact. Left arm 4/5, right triceps 4/5, legs about 4/5 Assessment/Plan: 1. 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 Hypercholesterolemia: Lipitor 3. DVT Prophylaxis: Heparin S/Q 4. Advance Directives: Full Code 5. HTN: Lisinopril/Norvasc 01/01/19 17:45
[2019-01-01] MEDS: Atorvastatin* 80 MG TAB PO SCH (17:49)
[2019-01-01] MEDS: Sulfamethox/Trimethoprim SS 400/80* TAB PO SCH (20:37)
[2019-01-02] MEDS: amLODIPine TAB* 5 MG PO SCH (08:29)
[2019-01-02] MEDS: Lisinopril TAB* 10 MG PO SCH (08:29)
[2019-01-02] MEDS: Sulfamethox/Trimethoprim SS 400/80* TAB PO SCH ×2 (08:29→20:08)
[2019-01-02] MEDS: Aspirin EC TAB* 81 MG TAB.EC PO SCH (08:29)
[2019-01-02] MEDS: Heparin VIAL(*) 5000 UNITS/ML VIAL (FIVE THOUSAND) SUBCUT SCH ×2 (08:30→20:10)
[2019-01-02] MEDS: Docusate CAP* 100 MG PO SCH ×2 (08:30→20:08)
[2019-01-02] MEDS: Pantoprazole TAB * 40 MG TAB PO SCH (08:31)
[2019-01-02] MEDS: Clopidogrel TAB* 75 MG PO SCH (08:31)
--- NOTE | 2019-01-02 11:24 | PN ---
Progress Note Date of Service: 01/02/19 Note: PEPPER RAMOS was visited. Nursing and therapy notes read and reviewed. No chest pain, shortness of breath or abdominal pain. Often incontinent of urine without enough time to get to commode. Current Medications: Active Medications Generic Name Dose Route Start Last Admin Trade Name Freq PRN Reason Stop Dose Admin Acetaminophen 650 mg 12/29/18 11:32 12/31/18 15:52 Tylenol Tab* PO 650 mg Q6H PRN Administration MILD PAIN or TEMP > 100.4 Amlodipine Besylate 2.5 mg 12/30/18 09:00 01/02/19 08:29 Norvasc Tab* PO 2.5 mg DAILY CARLEE Administration Aspirin 81 mg 12/30/18 09:00 01/02/19 08:29 Aspirin Ec Tab* PO 81 mg DAILY CARLEE Administration Atorvastatin Calcium 80 mg 12/30/18 17:00 01/01/19 17:49 Lipitor* PO 80 mg 1700 CARLEE Administration Clopidogrel Bisulfate 75 mg 12/30/18 09:00 01/02/19 08:31 Plavix Tab* PO 75 mg DAILY CARLEE Administration Docusate Sodium 100 mg 12/29/18 21:00 01/02/19 08:30 Colace Cap* PO 100 mg BID CARLEE Administration Heparin Sodium (Porcine) 5,000 units 12/29/18 21:00 01/02/19 08:30 Heparin Vial(*) SUBCUT 5,000 units Q12HR CARLEE Administration Lisinopril 40 mg 12/30/18 09:00 01/02/19 08:29 Prinivil Tab* PO 40 mg DAILY CARLEE Administration Pantoprazole Sodium 40 mg 12/30/18 09:00 01/02/19 08:31 Protonix Tab* PO 40 mg DAILY CARLEE Administration Senna 2 tab 12/29/18 11:32 Senokot 8.6 Mg Tab* PO BEDTIME PRN CONSTIPATION Sodium Biphosphate/Sodium Phosphate 1 bottle 12/29/18 11:32 Fleet Enema* [place] DAILY PRN CONSTIPATION Trimethoprim/Sulfamethoxazole 1 tab 01/01/19 21:00 01/02/19 08:29 Bactrim Ss 400/80 Tab* PO 1 tab BID CARLEE Administration Vital Signs: Vital Signs Temp Pulse Resp BP Pulse Ox 98.0 F 74 20 149/52 95 01/02/19 04:02 01/02/19 04:02 01/02/19 04:02 01/02/19 04:02 01/02/19 08:00 Exam: GENERAL: No acute distress HEENT: Left facial droop LUNGS: Clear to auscultation bilaterally. HEART: Regular rate and rhythm, II/ systolic murmur ABDOMEN: Soft, + bowel sounds, non-tender, non-distended EXTREMITIES: No edema. NEUROLOGIC: Sensation intact x4. Motor 4/4 BUE and BLE. Assessment/Plan: 1. 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 Hypercholesterolemia: Lipitor 3. DVT Prophylaxis: Heparin S/Q 4. Advance Directives: Full Code 5. HTN: Lisinopril/Norvasc 6. UTI/Urinary incontinence: urine culture pending. On bactrim day#2. Timed voids. 6. Estimated LOS: 01/23/19 01/02/19 11:28
[2019-01-02] MEDS: Atorvastatin* 80 MG TAB PO SCH (16:52)
[2019-01-03] MEDS: amLODIPine TAB* 5 MG PO SCH (09:25)
[2019-01-03] MEDS: Docusate CAP* 100 MG PO SCH ×2 (09:29→20:30)
[2019-01-03] MEDS: Clopidogrel TAB* 75 MG PO SCH (09:29)
[2019-01-03] MEDS: Pantoprazole TAB * 40 MG TAB PO SCH (09:29)
[2019-01-03] MEDS: Aspirin EC TAB* 81 MG TAB.EC PO SCH (09:29)
[2019-01-03] MEDS: Sulfamethox/Trimethoprim SS 400/80* TAB PO SCH ×2 (09:29→20:32)
[2019-01-03] MEDS: Lisinopril TAB* 10 MG PO SCH (09:30)
[2019-01-03] MEDS: Heparin VIAL(*) 5000 UNITS/ML VIAL (FIVE THOUSAND) SUBCUT SCH ×2 (09:31→20:32)
--- NOTE | 2019-01-03 12:37 | PN ---
Progress Note Date of Service: 01/03/19 Note: PEPPER RAMOS was visited. Nursing and therapy notes read and reviewed. No chest pain, shortness of breath or abdominal pain. Ongoing urinary incontinence. Current Medications: Active Medications Generic Name Dose Route Start Last Admin Trade Name Freq PRN Reason Stop Dose Admin Acetaminophen 650 mg 12/29/18 11:32 12/31/18 15:52 Tylenol Tab* PO 650 mg Q6H PRN Administration MILD PAIN or TEMP > 100.4 Amlodipine Besylate 2.5 mg 12/30/18 09:00 01/03/19 09:25 Norvasc Tab* PO 2.5 mg DAILY CARLEE Administration Aspirin 81 mg 12/30/18 09:00 01/03/19 09:29 Aspirin Ec Tab* PO 81 mg DAILY CARLEE Administration Atorvastatin Calcium 80 mg 12/30/18 17:00 01/02/19 16:52 Lipitor* PO 80 mg 1700 CARLEE Administration Clopidogrel Bisulfate 75 mg 12/30/18 09:00 01/03/19 09:29 Plavix Tab* PO 75 mg DAILY CARLEE Administration Docusate Sodium 100 mg 12/29/18 21:00 01/03/19 09:29 Colace Cap* PO 100 mg BID CARLEE Administration Heparin Sodium (Porcine) 5,000 units 12/29/18 21:00 01/03/19 09:31 Heparin Vial(*) SUBCUT 5,000 units Q12HR CARLEE Administration Lisinopril 40 mg 12/30/18 09:00 01/03/19 09:30 Prinivil Tab* PO 40 mg DAILY CARLEE Administration Pantoprazole Sodium 40 mg 12/30/18 09:00 01/03/19 09:29 Protonix Tab* PO 40 mg DAILY CARLEE Administration Senna 2 tab 12/29/18 11:32 Senokot 8.6 Mg Tab* PO BEDTIME PRN CONSTIPATION Sodium Biphosphate/Sodium Phosphate 1 bottle 12/29/18 11:32 Fleet Enema* [place] DAILY PRN CONSTIPATION Trimethoprim/Sulfamethoxazole 1 tab 01/01/19 21:00 01/03/19 09:29 Bactrim Ss 400/80 Tab* PO 1 tab BID CARLEE Administration Vital Signs: Vital Signs Temp Pulse Resp BP Pulse Ox 97.6 F 71 20 132/50 94 01/03/19 04:56 01/03/19 04:56 01/03/19 04:56 01/03/19 04:56 01/03/19 04:56 Exam: GENERAL: No acute distress HEENT: Left facial droop LUNGS: Clear to auscultation bilaterally. HEART: Regular rate and rhythm, II/ systolic murmur ABDOMEN: Soft, + bowel sounds, non-tender, non-distended EXTREMITIES: No edema. NEUROLOGIC: Sensation intact x4. Motor 4/4 BUE and BLE except trace left DF/EHL. Urine culture grew E.coli pansensitive Assessment/Plan: 1. 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 Hypercholesterolemia: Lipitor 3. DVT Prophylaxis: Heparin S/Q 4. Advance Directives: Full Code 5. HTN: Lisinopril/Norvasc 6. Pansensitive E.coli UTI/Urinary incontinence: On bactrim day#3. Timed voids. 7. Estimated LOS: 01/23/19 01/03/19 12:37
[2019-01-03] MEDS: Atorvastatin* 80 MG TAB PO SCH (17:15)
[2019-01-04] MEDS: Docusate CAP* 100 MG PO SCH ×2 (11:15→21:24)
[2019-01-04] MEDS: Aspirin EC TAB* 81 MG TAB.EC PO SCH (11:15)
[2019-01-04] MEDS: Heparin VIAL(*) 5000 UNITS/ML VIAL (FIVE THOUSAND) SUBCUT SCH ×2 (11:16→21:25)
[2019-01-04] MEDS: Clopidogrel TAB* 75 MG PO SCH (11:16)
[2019-01-04] MEDS: Pantoprazole TAB * 40 MG TAB PO SCH (11:16)
[2019-01-04] MEDS: amLODIPine TAB* 5 MG PO SCH (11:19)
--- NOTE | 2019-01-04 11:23 | PN ---
Progress Note Date of Service: 01/04/19 Note: PEPPER RAMOS was visited. Nursing notes read and reviewed. No chest pain, shortness of breath or abdominal pain. Still with urge urinary incontinence. Current Medications: Active Medications Generic Name Dose Route Start Last Admin Trade Name Freq PRN Reason Stop Dose Admin Acetaminophen 650 mg 12/29/18 11:32 12/31/18 15:52 Tylenol Tab* PO 650 mg Q6H PRN Administration MILD PAIN or TEMP > 100.4 Amlodipine Besylate 2.5 mg 12/30/18 09:00 01/04/19 11:19 Norvasc Tab* PO 2.5 mg DAILY CARLEE Administration Aspirin 81 mg 12/30/18 09:00 01/04/19 11:15 Aspirin Ec Tab* PO 81 mg DAILY CARLEE Administration Atorvastatin Calcium 80 mg 12/30/18 17:00 01/03/19 17:15 Lipitor* PO 80 mg 1700 CARLEE Administration Clopidogrel Bisulfate 75 mg 12/30/18 09:00 01/04/19 11:16 Plavix Tab* PO 75 mg DAILY CARLEE Administration Docusate Sodium 100 mg 12/29/18 21:00 01/04/19 11:15 Colace Cap* PO 100 mg BID CARLEE Administration Heparin Sodium (Porcine) 5,000 units 12/29/18 21:00 01/04/19 11:16 Heparin Vial(*) SUBCUT 5,000 units Q12HR CARLEE Administration Lisinopril 40 mg 12/30/18 09:00 01/03/19 09:30 Prinivil Tab* PO 40 mg DAILY CARLEE Administration Pantoprazole Sodium 40 mg 12/30/18 09:00 01/04/19 11:16 Protonix Tab* PO 40 mg DAILY CARLEE Administration Senna 2 tab 12/29/18 11:32 Senokot 8.6 Mg Tab* PO BEDTIME PRN CONSTIPATION Sodium Biphosphate/Sodium Phosphate 1 bottle 12/29/18 11:32 Fleet Enema* [place] DAILY PRN CONSTIPATION Trimethoprim/Sulfamethoxazole 1 tab 01/01/19 21:00 01/03/19 20:32 Bactrim Ss 400/80 Tab* PO 1 tab BID CARLEE Administration Vital Signs: Vital Signs Temp Pulse Resp BP Pulse Ox 97.6 F 76 18 147/54 94 01/04/19 04:43 01/04/19 04:43 01/04/19 04:43 01/04/19 04:43 01/04/19 04:43 Exam: GENERAL: No acute distress HEENT: Left facial droop LUNGS: Clear to auscultation bilaterally. HEART: Regular rate and rhythm, II/ systolic murmur ABDOMEN: Soft, + bowel sounds, non-tender, non-distended EXTREMITIES: No edema. NEUROLOGIC: Sensation intact x4. Motor 4/4 BUE and BLE except trace left DF/EHL. Urine culture - E.coli pansensitive Assessment/Plan: 1. 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 Hypercholesterolemia: Lipitor 3. DVT Prophylaxis: Heparin S/Q 4. Advance Directives: Full Code 5. HTN: Lisinopril/Norvasc 6. Pansensitive E.coli UTI/Urinary incontinence: On bactrim day#4. Timed voids. 7. Estimated LOS: 01/23/19 01/04/19 11:22
[2019-01-04] MEDS: Lisinopril TAB* 10 MG PO SCH (11:31)
[2019-01-04] MEDS: Sulfamethox/Trimethoprim SS 400/80* TAB PO SCH ×2 (11:31→21:24)
[2019-01-04] MEDS: Atorvastatin* 80 MG TAB PO SCH (16:07)
[2019-01-05] MEDS: Pantoprazole TAB * 40 MG TAB PO SCH (09:34)
[2019-01-05] MEDS: Heparin VIAL(*) 5000 UNITS/ML VIAL (FIVE THOUSAND) SUBCUT SCH ×2 (09:34→20:28)
[2019-01-05] MEDS: Docusate CAP* 100 MG PO SCH ×2 (09:34→20:28)
[2019-01-05] MEDS: Clopidogrel TAB* 75 MG PO SCH (09:34)
[2019-01-05] MEDS: Lisinopril TAB* 10 MG PO SCH (09:34)
[2019-01-05] MEDS: Aspirin EC TAB* 81 MG TAB.EC PO SCH (09:34)
[2019-01-05] MEDS: amLODIPine TAB* 5 MG PO SCH (09:34)
[2019-01-05] MEDS: Sulfamethox/Trimethoprim SS 400/80* TAB PO SCH ×2 (09:40→20:28)
[2019-01-05] MEDS: Atorvastatin* 80 MG TAB PO SCH (18:19)
--- NOTE | 2019-01-05 20:30 | PN ---
Progress Note Date of Service: 01/05/19 Note: PEPPER RAMOS was visited. Therapy notes read and reviewed. She is having a little trouble advancing in mobility but she thinks she is doing better Current Medications: Active Medications Generic Name Dose Route Start Last Admin Trade Name Freq PRN Reason Stop Dose Admin Acetaminophen 650 mg 12/29/18 11:32 12/31/18 15:52 Tylenol Tab* PO 650 mg Q6H PRN Administration MILD PAIN or TEMP > 100.4 Amlodipine Besylate 2.5 mg 12/30/18 09:00 01/05/19 09:34 Norvasc Tab* PO 2.5 mg DAILY CARLEE Administration Aspirin 81 mg 12/30/18 09:00 01/05/19 09:34 Aspirin Ec Tab* PO 81 mg DAILY CARLEE Administration Atorvastatin Calcium 80 mg 12/30/18 17:00 01/05/19 18:19 Lipitor* PO 80 mg 1700 CARLEE Administration Clopidogrel Bisulfate 75 mg 12/30/18 09:00 01/05/19 09:34 Plavix Tab* PO 75 mg DAILY CARLEE Administration Docusate Sodium 100 mg 12/29/18 21:00 01/05/19 09:34 Colace Cap* PO 100 mg BID CARLEE Administration Heparin Sodium (Porcine) 5,000 units 12/29/18 21:00 01/05/19 09:34 Heparin Vial(*) SUBCUT 5,000 units Q12HR CARLEE Administration Lisinopril 40 mg 12/30/18 09:00 01/05/19 09:34 Prinivil Tab* PO 40 mg DAILY CARLEE Administration Pantoprazole Sodium 40 mg 12/30/18 09:00 01/05/19 09:34 Protonix Tab* PO 40 mg DAILY CARLEE Administration Senna 2 tab 12/29/18 11:32 Senokot 8.6 Mg Tab* PO BEDTIME PRN CONSTIPATION Sodium Biphosphate/Sodium Phosphate 1 bottle 12/29/18 11:32 Fleet Enema* [place] DAILY PRN CONSTIPATION Trimethoprim/Sulfamethoxazole 1 tab 01/01/19 21:00 01/05/19 09:40 Bactrim Ss 400/80 Tab* PO 1 tab BID CARLEE Administration Vital Signs: Vital Signs Temp Pulse Resp BP Pulse Ox 97.3 F 74 18 135/62 97 01/05/19 17:00 01/05/19 17:00 01/05/19 15:57 01/05/19 17:00 01/05/19 17:00 Exam: GENERAL: No acute distress HEENT: Left facial droop LUNGS: Clear to auscultation bilaterally. HEART: Regular rate and rhythm, II/ systolic murmur ABDOMEN: Soft, + bowel sounds, non-tender, non-distended EXTREMITIES: No edema. NEUROLOGIC: Sensation intact x4. Motor 4/4 BUE and BLE except trace left DF/EHL. Assessment/Plan: 1. 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 Hypercholesterolemia: Lipitor 3. DVT Prophylaxis: Heparin S/Q 4. Advance Directives: Full Code 5. HTN: Lisinopril/Norvasc 6. UTI with E.coli/Urinary incontinence: On bactrim day#5. Timed voids. 7. Estimated LOS: 01/23/19 01/05/19 20:31 01/05/19 20:33
[2019-01-06] MEDS: Lisinopril TAB* 10 MG PO SCH (08:32)
[2019-01-06] MEDS: Heparin VIAL(*) 5000 UNITS/ML VIAL (FIVE THOUSAND) SUBCUT SCH ×2 (08:33→20:38)
[2019-01-06] MEDS: amLODIPine TAB* 5 MG PO SCH (08:33)
[2019-01-06] MEDS: Pantoprazole TAB * 40 MG TAB PO SCH (08:33)
[2019-01-06] MEDS: Clopidogrel TAB* 75 MG PO SCH (08:33)
[2019-01-06] MEDS: Sulfamethox/Trimethoprim SS 400/80* TAB PO SCH ×2 (08:33→20:38)
[2019-01-06] MEDS: Docusate CAP* 100 MG PO SCH ×2 (08:33→20:38)
[2019-01-06] MEDS: Aspirin EC TAB* 81 MG TAB.EC PO SCH (08:33)
--- NOTE | 2019-01-06 13:00 | PMRUTEAM ---
PMRU: Team Meeting Current Status: Nursing: Current Status Skin Deviations [left wrist] Bruise Skin Deviations [left forearm] Previous Access Point Skin Deviations [Midline Other Coccyx] Skin Deviations [Right Hand] Bruise Skin Deviations [Left Arm] Abrasion Skin Deviations [Left Shoulder Bruise ] Skin Deviation Description [ s/p fall and laying on watch for extended period left wrist] of time; healing Skin Deviation Description [ site healed; residual bruising healing left forearm] Skin Deviation Description [ redness. barrier applied Midline Coccyx] Skin Deviation Description [ healing Right Hand] Skin Deviation Description [ abrasion to upper arm. optifoam removed. area Left Arm] healed Bladder Current Status incontinent of urine, voids Bowel Current Status colace given Nutrition Current Status appetite good Medication Current Status needs reinforcement Physical Therapy: Current Status Bed Mobility Assistance Mod Assist,2 or More Person Assist Transfer Mobility Assistance Mod Assist Transfer/Bed Mobility Rolling Walker,EZ Stand Recommended Devices Ambulation Assistance Mod Assist Ambulation Assistive Devices Rolling Walker Number of Feet Patient 20 Ambulated Stairs Assistance Not Tested Curb Not Tested Objective Comments flip improves sit to stand and sps trasnfers and completes ambulation for first time 01/06/19. flip is able to demosntrates sps trasnfer with mod assist of commercial insurance underwriter using GB and RW, but will continue to recommmend EZ stand with nursing staff until patient is able to demonstrates consistancy . Occupational Therapy: Current Status Upper Body Dressing Min Assist Lower Body Dressing Total Assist,2 Person Assist Bathing Mod Assist,2 Person Assist Toileting Total Assist,2 Person Assist Toilet Transfer Total Assist,2 Person Assist Toilet Transfer Progress EZ stand Shower Transfer Progress NA Eating Supervision Instrumental ADL [facility] ADL 03/15=70.42% Rec Therapy: Current Status Summary of Assessment and Recreation Therapy services introduced and Clinical Impression assessment completed. Pt. is open to continued leisure visits but not pet therapy. Pt. has been observed sleeping during the afternoon recreation time. Treatment Goals Pt. will engage in leisure activities while on the unit. Treatment Plan Provide recreation therapy services and encourage involvement. Speech: Current Status Assessment Patient demonstrated functional coognitive- linguistic abilities, with apparent cognitive- motor deficits during skilled observation of functional activities and exercises with OT and PT . Patient problem solved use of her electric toothbrush, initially brushing by hand then almost immeidately stopping to turn it on. Patient demonstrably comprehended verbal directions and even repeated them to self, but demonstrated mild difficulty coordinating her physical responses. No further skilled speech-language interventions are indicated. Goals: Physical Therapy: Initial Goals Bed Mobility Assistance Independent Transfer Mobility Assistance Independent Transfer/Bed Mobility Rolling Walker Recommended Devices Ambulation Independent Ambulation Recommended Devices Rolling Walker Ambulation Distance 150 Stairs Assistance Independent Stair Recommended Devices Two Rails Number of Stairs 5 Physical Therapy: Updated Goals Transfer/Bed Mobility EZ Stand Recommended Devices Occupational Therapy: Initial Goals Goals to be Completed in (Days 21-28 days ) Upper Body Bathing Routine Independent Lower Body Bathing Routine Modified Independent with Upper Body Dressing Routine Independent Lower Body Dressing Routine Modified Independent with Toilet Hygeine and Clothing Modified Independent with Management Routine Toilet Transfer Routine Modified Independent with Tub Transfer Routine Modified Independent with Functional Transfers for ADL Modified Independent with Grooming Routine Modified Independent with Feeding Routine Independent Nursing: Goals Bladder Goal independent Bowel Goal independent Nutrition Goal 100% of all meals consumed Medication Goal independent Nutrition: Goals Intervention Goals 1. Pt will tolerate soft texture foods without difficulty chewing 2. Intake will be adequate to support stable wt without unintended wt loss 3. Labs within acceptable limits per MD Speech: Goals Goal 1 Comments Patient demonstrated functional coognitive- linguistic abilities, with apparent cognitive- motor deficits during skilled observation of functional activities and exercises with OT and PT . Patient problem solved use of her electric toothbrush, initially brushing by hand then almost immeidately stopping to turn it on. Patient demonstrably comprehended verbal directions and even repeated them to self, but demonstrated mild difficulty coordinating her physical responses. No further skilled speech-language interventions are indicated. Care Plan: Care Plan ADL's - Improve/Maintain Start: 12/29/18 14:52 Freq: DAILY@0700,1900 Status: Active Target: 01/23/19 Protocol: Activity Type Activity Date Activity User E-Sign Co-Sign Detail Recorded Client Recorded Date Recorded By Document 01/05/19 16:39 [id number] [email or web address] 01/05/19 16:40 [id number] 01/05/19 16:39 PMRU Outcome: ADL's/ADL Transfers Orders/Interventions Occupational Therapy Evaluation & Treatment Communication Tool in Patient Room Device Yes Address Deficits Secondary To: CVA Patient to receive OT 5x/wk for 60-120 Therex min/day Self Care Management Group Therapy Neuromuscular ReEducation UE/LE ADL's with Assist Yes: Mehdi ADL Transfers with Assist Yes: Mehdi Toileting: Transfers,Clothing Management Yes: Mehdi ,Hygeine w/Assist Light Kitchen/Laundry w/Assist Yes: Mehdi Progression Toward Outcome/Goals Not Progressing Lack of Progression Comment Pt participated fair in treatment session, decreased initiation for tasks and poor motor planning requiring significant cueing and encouragement to engage in and attempt to complete tasks more independently. Cardiovascular- Improve/Maintain Start: 12/29/18 23:49 Freq: DAILY@07,1900 Status: Active Target: 01/16/19 Protocol: Activity Type Activity Date Activity User E-Sign Co-Sign Detail Recorded Client Recorded Date Recorded By Document 01/05/19 23:30 [id number] 01/06/19 00:55 [id number] 01/05/19 23:30 PMRU Outcome: Cardiovascular Vital Signs q Shift for 48hrs Then BID Yes Daily Weight Ordered No Current Cardiovascular Outcome/Goal Maintain/ Achieve Baseline HR, BP , Perfusion Improve HR Within Prescribed Parameters Maintain/ Improve Perfusion Free of Abnormal Cardiac Symptoms Progression Toward Outcome/Goal Progressing Communication-Improve/Maintain Start: 12/29/18 23:49 Freq: DAILY@699,[id number] Status: Active Target: 01/16/19 Protocol: Activity Type Activity Date Activity User E-Sign Co-Sign Detail Recorded Client Recorded Date Recorded By Document 01/05/19 23:30 [id number] [email or web address] 01/06/19 00:55 [id number] 01/05/19 23:30 PMRU Outcome: Communication/Cognitive Status Current Communication Outcome/Goals Use Comm Tools/ Devices Makes Needs Known Effectively Progression Toward Outcomes/Goals Progressing Outcome/Goals Met Comment pt ringing appropriately Coping/Psych-Improve/Maintain Start: 12/29/18 23:49 Freq: DAILY@699,190 Status: Active Target: 01/16/19 Protocol: Activity Type Activity Date Activity User E-Sign Co-Sign Detail Recorded Client Recorded Date Recorded By Document 01/05/19 23:30 [id number] [email or web address] 01/06/19 00:55 [id number] 01/05/19 23:30 PMRU Outcome: Coping/Psychosocial Current Coping Outcome/Goals Verbalization of Acceptance of Rehab Admit Verbalization of Sense of Control Over Health Status Utilization of Appropriate Problem Solving Techniques Willingness to Participate in Treatment Plan and Basic Needs Utilization of Available Support Systems Progression Toward Outcome/Goals Progressing Current Psychosocial Outcome/Goals Maintain/ Improve Emotional Health Demonstrates Knowledge of Healthy Coping Mechanisms Available Cooperate/ Participate in Plan Progression Toward Outcome/Goals Progressing DVT Prophylaxis- Improve/Maintain Start: 12/29/18 23:49 Freq: DAILY@0700,1900 Status: Active Target: 01/16/19 Protocol: Activity Type Activity Date Activity User E-Sign Co-Sign Detail Recorded Client Recorded Date Recorded By Document 01/05/19 23:30 [id number] [email or web address] 01/06/19 00:55 [id number] 01/05/19 23:30 PMRU Outcome: DVT Prophylaxis Current DVT Outcome/Goals Remains Free of DVT Complies with DVT Prophylaxis /Treatment Demonstrates Knowledge of DVT Prevention/ Treatment TEDS Stockings on Every AM, Off at HS Progression Toward Outcome/Goals Progressing Discharge Planning - Improve/Maintain Start: 12/29/18 23:49 Freq: DAILY@0700,1899 Status: Active Target: 01/16/19 Protocol: Activity Type Activity Date Activity User E-Sign Co-Sign Detail Recorded Client Recorded Date Recorded By Document 01/05/19 23:30 [id number] 01/06/19 00:55 [id number] 01/05/19 23:30 PMRU Outcome: Discharge Planning Update Patient Family No Current Discharge Planning Outcome/Goals Demonstrates Understanding of Discharge Plan Progression Toward Outcome/Goals Progressing Education-Improve/Maintain Start: 12/29/18 23:49 Freq: DAILY@0700,1900 Status: Active Target: 01/16/19 Protocol: Activity Type Activity Date Activity User E-Sign Co-Sign Detail Recorded Client Recorded Date Recorded By Document 01/05/19 23:30 [id number] [email or web address] 01/06/19 00:55 [id number] 01/05/19 23:30 PMRU Outcome: Education Current Education Outcome/Goals Demonstrate/ Verbalize Understanding of Written Discharge Instructions Demonstrates Skills Encourage Questions Progression Toward Outcome/Goals Progressing /GI-Improve/Maintain Start: 12/29/18 23:49 Freq: DAILY@0700,1900 Status: Active Target: 01/16/19 Protocol: Activity Type Activity Date Activity User E-Sign Co-Sign Detail Recorded Client Recorded Date Recorded By Document 01/05/19 23:30 [id number] [email or web address] 01/06/19 00:55 [id number] 01/05/19 23:30 PMRU Outcome: Genitourinary/ Gastrointestinal Current Gastrointestinal Outcome/Goals Maintain/ Achieve Bowel Regularity in Accordance with Pt's Baseline Remain Free of Emesis Prevent Constipation Laxatives as Ordered Progression Toward Outcome/Goals Progressing Current Genitourinary Outcome/Goals Maintain/ Achieve Urinary Continence Maintain/ Achieve Adequate Urinary Output Remain Free of Hospital- Acquired UTI Progression Toward Outcome/Goals Not Progressing Lack of Progression Comment pt incontinent of urine Medication Administration Start: 12/29/18 23:49 Freq: DAILY@0700,1900 Status: Active Target: 01/16/19 Protocol: Activity Type Activity Date Activity User E-Sign Co-Sign Detail Recorded Client Recorded Date Recorded By Document 01/05/19 23:30 [id number] 01/06/19 00:55 [id number] 01/05/19 23:30 PMRU Outcome: Medication Administration Assess Patient Knowledge/Teach Med Yes Education for all Meds Current Metal Container Maker Outcome/Goals Family/ Caregiver Administer Medications at Home Demonstrates Understanding Progression Towards Outcome/Goals Progressing Is Patient Going Home on Lovenox? No Mobility- Improve/Maintain Start: 12/29/18 18:39 Freq: DAILY@0700,1900 Status: Active Target: 01/23/19 Protocol: Activity Type Activity Date Activity User E-Sign Co-Sign Detail Recorded Client Recorded Date Recorded By Document 01/05/19 16:29 [id number] [email or web address] 01/05/19 16:31 [id number] 01/05/19 16:29 PMRU Outcome: Mobility Physical Therapy Evaluation and Yes Treatment Activity OOB with Assistance Yes WBAT Yes Device Yes Assistance Yes Patient to be seen 5x/wk for 60-120 min/ Therex day for: Mobility Training Gait Training Balance Other Current Mobility Outcome/Goals Maintain/ Achieve Baseline Mobility Status Improve Mobility Status Demonstrates Proper Use of Assistive Devices Free from Complications of Immobility Progression Toward Outcome/Goals Progressing Outcome/Goals Met Improve Mobility Status Demonstrates Proper Use of Assistive Devices Bed Mobility Yes: independent Transfers Yes: independent with rolling walker. Gait x ft Yes: independnet with rolling walker to 150' Up/Down Stairs Yes: independent up/ down 5 stairs with 2 rails. Neurological- Improve/Maintain Start: 12/29/18 23:49 Freq: DAILY@699,1900 Status: Active Target: 01/16/19 Protocol: Activity Type Activity Date Activity User E-Sign Co-Sign Detail Recorded Client Recorded Date Recorded By Document 01/05/19 23:30 [id number] [email or web address] 01/06/19 00:55 [id number] 01/05/19 23:30 PMRU Outcome: Neurological Weakness/Aphasia Weakness Left Side Current Neurological Outcome/Goals Maintain/ Achieve Baseline Neurological Status Improve Neurological Status Prevent Avoidable Neurological Decline Demonstrate Knowledge of Prevention/Tx of Neuro Disorders/ Complication Maintain/ Improve Strength/ROM Progression Toward Outcome/Goals Progressing Pain/Comfort- Improve/Maintain Start: 12/30/18 08:03 Freq: DAILY@699,1899 Status: Complete Target: 01/16/19 Protocol: Activity Type Activity Date Activity User E-Sign Co-Sign Detail Recorded Client Recorded Date Recorded By Document 01/03/19 07:00 [id number] 01/03/19 13:29 [id number] 01/03/19 07:00 PMRU Outcome: Pain/Comfort Current Pain/Comfort Outcome/Goals Demonstrates Knowledge and Use of Available Comfort Measures Achieves Acceptable Comfort/Pain Level as Determined by Patient/Condit Maintain Comfort Level Allowing Patient to Fully Participate in Rehab Progression Toward Outcome/Goals Goals Met Outcome/Goals Met Demonstrates Knowledge and Use of Available Comfort Measures Rec Therapy- Improve/Maintain Start: 12/29/18 16:49 Freq: DAILY@699,1899 Status: Active Target: 01/13/19 Protocol: Activity Type Activity Date Activity User E-Sign Co-Sign Detail Recorded Client Recorded Date Recorded By Document 12/29/18 16:49 [id number] [email or web address] 12/29/18 16:49 [id number] 12/29/18 16:49 PMRU Outcome: Recreation Therapy Current Rec Ther Outcome/Goals Complete Rec Therapy Assessment Meet with Patient Regularly for Support Encourage Leisure Involvement Progression Toward Outcome/Goals Goal Initiation Safety- Improve/Maintain Start: 12/29/18 11:22 Freq: DAILY@699,190 Status: Active Target: 01/16/19 Protocol: Activity Type Activity Date Activity User E-Sign Co-Sign Detail Recorded Client Recorded Date Recorded By Document 01/05/19 23:30 [id number] [email or web address] 01/06/19 00:55 [id number] 01/05/19 23:30 PMRU Outcome: Safety Current Safety Outcome/Goals Remain Free of Injury or Harm Cooperates with Safety Measures for Least Restrictive Environment Prevent Falls/ Injury Progression Toward Outcome/Goals Progressing Outcome/Goals Met Comment BA/PA utilized Skin- Improve/Maintain Start: 12/29/18 23:49 Freq: DAILY@0700,1900 Status: Active Target: 01/16/19 Protocol: Activity Type Activity Date Activity User E-Sign Co-Sign Detail Recorded Client Recorded Date Recorded By Document 01/05/19 23:30 [id number] [id number] 01/06/19 00:55 [id number] 01/05/19 23:30 PMRU Outcome: Skin Skin Risk Level Mild Risk Skin Orders Heels Off Bed Turn/Position q2hr While in Bed Other Skin Orders Comment pillows used Current Skin Outcome/Goals Maintain/ Improve Skin Integrity Free from Pressure Injury Progression Toward Outcome/Goals Progressing Medicine Note: Length of Stay: 2 1/2 weeks Anticipated Discharge Destination: Home vs SNF Tentative Discharge Date: 01/23/19 Discharged to: Home
[2019-01-06] MEDS: Atorvastatin* 80 MG TAB PO SCH (16:44)
[2019-01-06] MEDS: Acetaminophen TAB* 325 MG PO PRN (20:38)
--- NOTE | 2019-01-06 20:59 | PN ---
Progress Note Date of Service: 01/06/19 Note: PEPPER RAMOS was visited. Therapy notes read and reviewed. She was discussed in interdisciplinary team rounds. She has no complaints other than feeling tired. I met with her daughter to discuss post-rehab services. Current Medications: Active Medications Generic Name Dose Route Start Last Admin Trade Name Freq PRN Reason Stop Dose Admin Acetaminophen 650 mg 12/29/18 11:32 01/06/19 20:38 Tylenol Tab* PO 650 mg Q6H PRN Administration MILD PAIN or TEMP > 100.4 Amlodipine Besylate 2.5 mg 12/30/18 09:00 01/06/19 08:33 Norvasc Tab* PO 2.5 mg DAILY CARLEE Administration Aspirin 81 mg 12/30/18 09:00 01/06/19 08:33 Aspirin Ec Tab* PO 81 mg DAILY CARLEE Administration Atorvastatin Calcium 80 mg 12/30/18 17:00 01/06/19 16:44 Lipitor* PO 80 mg 1700 CARLEE Administration Clopidogrel Bisulfate 75 mg 12/30/18 09:00 01/06/19 08:33 Plavix Tab* PO 75 mg DAILY CARLEE Administration Docusate Sodium 100 mg 12/29/18 21:00 01/06/19 20:38 Colace Cap* PO 100 mg BID CARLEE Administration Heparin Sodium (Porcine) 5,000 units 12/29/18 21:00 01/06/19 20:38 Heparin Vial(*) SUBCUT 5,000 units Q12HR CARLEE Administration Lisinopril 40 mg 12/30/18 09:00 01/06/19 08:32 Prinivil Tab* PO 40 mg DAILY CARLEE Administration Pantoprazole Sodium 40 mg 12/30/18 09:00 01/06/19 08:33 Protonix Tab* PO 40 mg DAILY CARLEE Administration Senna 2 tab 12/29/18 11:32 Senokot 8.6 Mg Tab* PO BEDTIME PRN CONSTIPATION Sodium Biphosphate/Sodium Phosphate 1 bottle 12/29/18 11:32 Fleet Enema* [place] DAILY PRN CONSTIPATION Trimethoprim/Sulfamethoxazole 1 tab 01/01/19 21:00 01/06/19 20:38 Bactrim Ss 400/80 Tab* PO 01/06/19 23:59 1 tab BID CARLEE Administration Vital Signs: Vital Signs Temp Pulse Resp BP Pulse Ox 97.5 F 77 15 134/54 97 01/06/19 16:18 01/06/19 16:18 01/06/19 16:18 01/06/19 16:18 01/06/19 16:18 Exam: GENERAL: No acute distress HEENT: Left facial droop LUNGS: Clear to auscultation bilaterally. HEART: Regular rate and rhythm, II/ systolic murmur ABDOMEN: Soft, + bowel sounds, non-tender, non-distended EXTREMITIES: No edema. NEUROLOGIC: Sensation intact x4. Motor 4/4 BUE and BLE except trace left DF/EHL. Assessment/Plan: 1. 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 PT/OT/SORTER UPHOLSTERY PARTS 2. Hypercholesterolemia: Lipitor 3. DVT Prophylaxis: Heparin S/Q 4. Advance Directives: Full Code 5. HTN: Lisinopril/Norvasc 6. UTI with E.coli/Urinary incontinence: On bactrim day#6. Will d/c after today. 7. Estimated LOS: 01/23/19 01/06/19 20:59 01/06/19 21:01 01/06/19 21:02
[2019-01-07 05:15] LABS: ABS Basophils 0.1 10^3/ul (0-0.2); ABS Eosinophils 0.5 10^3/ul (0-0.6); ABS Lymphocytes 1.6 10^3/ul (1.0-4.8); ABS Monocytes 0.7 10^3/ul (0-0.8); ABS Neutrophils 4.4 10^3/ul (1.5-7.7); Eosinophil % 7.4 %; Hematocrit 24 % (35-47); Hemoglobin 8.4 g/dL (12.0-16.0); Lymphocyte % 22.6 %; Mean Corpuscular HGB Conc 35 g/dL (31-36); Mean Corpuscular Hemoglobin 31 pg (27-31); Mean Corpuscular Volume 90 fL (80-97); Mean Platelet Volume 7.2 fL (7.4-10.4); Nucleated Red Blood Cells % 0.1; Platelet Count 338 10^3/uL (150-450); Red Blood Count 2.72 10^6 /uL (3.70-4.87); Red Cell Distribution Width 15 % (10-15); White Blood Count 7.3 10^3/uL (3.5-10.8)
[2019-01-07 05:34] LABS: Albumin 3.5 g/dL (3.2-5.2); Albumin/Globulin Ratio 1.2 (1-3); BUN/Creatinine Ratio 28.2 (8-20); EGFR African American 30.6 (>60); EGFR Non-African American 25.3 (>60); Globulin 2.9 g/dL (2-4); Total Bilirubin 0.2 mg/dL (0.2-1.0); Total Protein 6.4 g/dL (6.4-8.9)
[2019-01-07] MEDS: amLODIPine TAB* 5 MG PO SCH (09:04)
[2019-01-07] MEDS: Heparin VIAL(*) 5000 UNITS/ML VIAL (FIVE THOUSAND) SUBCUT SCH ×2 (09:05→19:46)
[2019-01-07] MEDS: Docusate CAP* 100 MG PO SCH ×2 (09:05→19:44)
[2019-01-07] MEDS: Clopidogrel TAB* 75 MG PO SCH (09:05)
[2019-01-07] MEDS: Lisinopril TAB* 10 MG PO SCH (09:05)
[2019-01-07] MEDS: Pantoprazole TAB * 40 MG TAB PO SCH (09:06)
[2019-01-07] MEDS: Aspirin EC TAB* 81 MG TAB.EC PO SCH (09:06)
[2019-01-07] MEDS: Atorvastatin* 80 MG TAB PO SCH (17:19)
[2019-01-07] MEDS: Acetaminophen TAB* 325 MG PO PRN (19:44)
[2019-01-07] MEDS: Senna TAB 8.6 mg* TAB PO PRN (19:45)
--- NOTE | 2019-01-07 21:52 | PN ---
Progress Note Date of Service: 01/07/19 Note: PEPPER RAMOS was visited. Therapy notes read and reviewed. She says she worked hard in therapy today. Note increase in BUN/Cr. Could be from Bactrim which has been stopped. May need IV fluids. Will recheck Current Medications: Active Medications Generic Name Dose Route Start Last Admin Trade Name Freq PRN Reason Stop Dose Admin Acetaminophen 650 mg 12/29/18 11:32 01/07/19 19:44 Tylenol Tab* PO 650 mg Q6H PRN Administration MILD PAIN or TEMP > 100.4 Amlodipine Besylate 2.5 mg 12/30/18 09:00 01/07/19 09:04 Norvasc Tab* PO 2.5 mg DAILY CARLEE Administration Aspirin 81 mg 12/30/18 09:00 01/07/19 09:06 Aspirin Ec Tab* PO 81 mg DAILY CARLEE Administration Atorvastatin Calcium 80 mg 12/30/18 17:00 01/07/19 17:19 Lipitor* PO 80 mg 1700 CARLEE Administration Clopidogrel Bisulfate 75 mg 12/30/18 09:00 01/07/19 09:05 Plavix Tab* PO 75 mg DAILY CARLEE Administration Docusate Sodium 100 mg 12/29/18 21:00 01/07/19 19:44 Colace Cap* PO 100 mg BID CARLEE Administration Heparin Sodium (Porcine) 5,000 units 12/29/18 21:00 01/07/19 19:46 Heparin Vial(*) SUBCUT 5,000 units Q12HR CARLEE Administration Lisinopril 40 mg 12/30/18 09:00 01/07/19 09:05 Prinivil Tab* PO 40 mg DAILY CARLEE Administration Pantoprazole Sodium 40 mg 12/30/18 09:00 01/07/19 09:06 Protonix Tab* PO 40 mg DAILY CARLEE Administration Senna 2 tab 12/29/18 11:32 01/07/19 19:45 Senokot 8.6 Mg Tab* PO 2 tab BEDTIME PRN Administration CONSTIPATION Sodium Biphosphate/Sodium Phosphate 1 bottle 12/29/18 11:32 Fleet Enema* [place] DAILY PRN CONSTIPATION Vital Signs: Vital Signs Temp Pulse Resp BP Pulse Ox 97.5 F 80 24 137/51 98 01/07/19 19:23 01/07/19 19:23 01/07/19 19:23 01/07/19 19:23 01/07/19 19:23 Lab Results: Laboratory Results - last 24 hr 01/07/19 01/07/19 04:33 04:36 WBC 7.3 RBC 2.72 L Hgb 8.4 L Hct 24 L MCV 90 MCH 31 MCHC 35 RDW 15 Plt Count 338 MPV 7.2 L Neut % (Auto) 60.0 Lymph % (Auto) 22.6 Coleman % (Auto) 9.0 Eos % (Auto) 7.4 Baso % (Auto) 1.0 Absolute Neuts (auto) 4.4 Absolute Lymphs (auto) 1.6 Absolute Monos (auto) 0.7 Absolute Eos (auto) 0.5 Absolute Basos (auto) 0.1 Absolute Nucleated RBC 0.0 Nucleated RBC % 0.1 Sodium 131 L Potassium 5.0 Chloride 104 Carbon Dioxide 19 L Anion Gap 8 BUN 53 H Creatinine 1.88 H Est GFR ( Amer) 30.6 Est GFR (Non-Af Amer) 25.3 BUN/Creatinine Ratio 28.2 H Glucose 105 H Calcium 9.0 Total Bilirubin 0.20 AST 23 ALT 34 Alkaline Phosphatase 42 Total Protein 6.4 Albumin 3.5 Globulin 2.9 Albumin/Globulin Ratio 1.2 Exam: GENERAL: No acute distress HEENT: Left facial droop LUNGS: Clear to auscultation bilaterally. HEART: Regular rate and rhythm, II/ systolic murmur ABDOMEN: Soft, + bowel sounds, non-tender, non-distended EXTREMITIES: No edema. NEUROLOGIC: Sensation intact x4. Motor 4/4 BUE and BLE except trace left DF/EHL. Assessment/Plan: 1. 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 Hypercholesterolemia: Lipitor 3. DVT Prophylaxis: Heparin S/Q 4. Advance Directives: Full Code 5. HTN: Lisinopril/Norvasc 6. Increasing BUN/Cr: Will recheck in am. Could be from Bactrim 7. UTI with E.coli/Urinary incontinence: finished bactrim. 8. Estimated LOS: 01/23/19 01/07/19 21:53
[2019-01-08 05:53] LABS: BUN/Creatinine Ratio 25.9 (8-20); Calcium 9.3 mg/dL (8.6-10.3); EGFR African American 28.3 (>60); EGFR Non-African American 23.4 (>60); Potassium 4.9 mmol/L (3.5-5.0)
[2019-01-08] MEDS: Pantoprazole TAB * 40 MG TAB PO SCH (12:17)
[2019-01-08] MEDS: amLODIPine TAB* 5 MG PO SCH (12:17)
[2019-01-08] MEDS: Docusate CAP* 100 MG PO SCH ×3 (12:17→19:52)
[2019-01-08] MEDS: Lisinopril TAB* 10 MG PO SCH (12:17)
[2019-01-08] MEDS: Heparin VIAL(*) 5000 UNITS/ML VIAL (FIVE THOUSAND) SUBCUT SCH ×2 (12:17→19:52)
[2019-01-08] MEDS: Aspirin EC TAB* 81 MG TAB.EC PO SCH (12:18)
[2019-01-08] MEDS: Clopidogrel TAB* 75 MG PO SCH (12:18)
[2019-01-08] MEDS: Acetaminophen TAB* 325 MG PO PRN (12:18)
--- NOTE | 2019-01-08 17:38 | PN ---
Progress Note Date of Service: 01/08/19 Note: PEPPER RAMOS was visited. Therapy notes read and reviewed. Notes therapy is fatiguing. She is working hard but is tired Current Medications: Active Medications Generic Name Dose Route Start Last Admin Trade Name Freq PRN Reason Stop Dose Admin Acetaminophen 650 mg 12/29/18 11:32 01/08/19 12:18 Tylenol Tab* PO 650 mg Q6H PRN Administration MILD PAIN or TEMP > 100.4 Amlodipine Besylate 2.5 mg 12/30/18 09:00 01/08/19 12:17 Norvasc Tab* PO 2.5 mg DAILY CARLEE Administration Aspirin 81 mg 12/30/18 09:00 01/08/19 12:18 Aspirin Ec Tab* PO 81 mg DAILY CARLEE Administration Atorvastatin Calcium 80 mg 12/30/18 17:00 01/07/19 17:19 Lipitor* PO 80 mg 1700 CARLEE Administration Clopidogrel Bisulfate 75 mg 12/30/18 09:00 01/08/19 12:18 Plavix Tab* PO 75 mg DAILY CARLEE Administration Docusate Sodium 100 mg 12/29/18 21:00 01/08/19 12:17 Colace Cap* PO 100 mg BID CARLEE Administration Heparin Sodium (Porcine) 5,000 units 12/29/18 21:00 01/08/19 12:17 Heparin Vial(*) SUBCUT 5,000 units Q12HR CARLEE Administration Lisinopril 40 mg 12/30/18 09:00 01/08/19 12:17 Prinivil Tab* PO 40 mg DAILY CARLEE Administration Pantoprazole Sodium 40 mg 12/30/18 09:00 01/08/19 12:17 Protonix Tab* PO 40 mg DAILY CARLEE Administration Senna 2 tab 12/29/18 11:32 01/07/19 19:45 Senokot 8.6 Mg Tab* PO 2 tab BEDTIME PRN Administration CONSTIPATION Sodium Biphosphate/Sodium Phosphate 1 bottle 12/29/18 11:32 Fleet Enema* [place] DAILY PRN CONSTIPATION Vital Signs: Vital Signs Temp Pulse Resp BP Pulse Ox 97.6 F 75 18 131/54 94 01/08/19 15:00 01/08/19 15:00 01/08/19 15:00 01/08/19 15:00 01/08/19 15:00 Lab Results: Laboratory Results - last 24 hr 01/08/19 05:15 Sodium 131 L Potassium 4.9 Chloride 104 Carbon Dioxide 21 L Anion Gap 6 BUN 52 H Creatinine 2.01 H Est GFR ( Amer) 28.3 Est GFR (Non-Af Amer) 23.4 BUN/Creatinine Ratio 25.9 H Glucose 97 Calcium 9.3 Exam: GENERAL: No acute distress HEENT: Left facial droop LUNGS: Clear to auscultation bilaterally. HEART: Regular rate and rhythm, II/ systolic murmur ABDOMEN: Soft, + bowel sounds, non-tender, non-distended EXTREMITIES: No edema. NEUROLOGIC: Sensation intact x4. Motor 4/4 BUE and BLE except trace left DF/EHL. Assessment/Plan: 1. 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 PT/OT/DIE TESTER 2. Hypercholesterolemia: Lipitor 3. DVT Prophylaxis: Heparin S/Q 4. Advance Directives: Full Code 5. HTN: Lisinopril/Norvasc 6. Renal failure with increasing BUN/Cr: Will recheck in am. Could be from Bactrim 7. Estimated LOS: 01/23/19 01/08/19 17:40
[2019-01-08] MEDS: Atorvastatin* 80 MG TAB PO SCH (18:04)
[2019-01-09 05:30] LABS: Calcium 9.2 mg/dL (8.6-10.3)
[2019-01-09 05:33] LABS: Potassium 5.3 mmol/L (3.5-5.0)
[2019-01-09 05:35] LABS: BUN/Creatinine Ratio 31.3 (8-20); EGFR African American 32.3 (>60); EGFR Non-African American 26.7 (>60)
[2019-01-09] MEDS: Heparin VIAL(*) 5000 UNITS/ML VIAL (FIVE THOUSAND) SUBCUT SCH ×2 (09:25→20:25)
[2019-01-09] MEDS: Pantoprazole TAB * 40 MG TAB PO SCH (09:26)
[2019-01-09] MEDS: Aspirin EC TAB* 81 MG TAB.EC PO SCH ×2 (09:26→09:34)
[2019-01-09] MEDS: amLODIPine TAB* 5 MG PO SCH (09:26)
[2019-01-09] MEDS: Clopidogrel TAB* 75 MG PO SCH (09:26)
[2019-01-09] MEDS: Docusate CAP* 100 MG PO SCH ×2 (09:26→20:25)
[2019-01-09] MEDS: Lisinopril TAB* 10 MG PO SCH (09:27)
--- NOTE | 2019-01-09 17:02 | PN ---
Progress Note Date of Service: 01/09/19 Note: PEPPER RAMOS was visited. Therapy notes read and reviewed. She notes fatigue. Her daughter worried that she won't be able to make it home. Current Medications: Active Medications Generic Name Dose Route Start Last Admin Trade Name Jorge PRN Reason Stop Dose Admin Acetaminophen 650 mg 12/29/18 11:32 01/08/19 12:18 Tylenol Tab* PO 650 mg Q6H PRN Administration MILD PAIN or TEMP > 100.4 Amlodipine Besylate 2.5 mg 12/30/18 09:00 01/09/19 09:26 Norvasc Tab* PO 2.5 mg DAILY CARLEE Administration Aspirin 81 mg 12/30/18 09:00 01/09/19 09:34 Aspirin Ec Tab* PO Not Given DAILY CARLEE Atorvastatin Calcium 80 mg 12/30/18 17:00 01/08/19 18:04 Lipitor* PO 80 mg 1700 CARLEE Administration Clopidogrel Bisulfate 75 mg 12/30/18 09:00 01/09/19 09:26 Plavix Tab* PO 75 mg DAILY CARLEE Administration Docusate Sodium 100 mg 12/29/18 21:00 01/09/19 09:26 Colace Cap* PO 100 mg BID CARLEE Administration Heparin Sodium (Porcine) 5,000 units 12/29/18 21:00 01/09/19 09:25 Heparin Vial(*) SUBCUT 5,000 units Q12HR CARLEE Administration Lisinopril 40 mg 12/30/18 09:00 01/09/19 09:27 Prinivil Tab* PO 40 mg DAILY CARLEE Administration Pantoprazole Sodium 40 mg 12/30/18 09:00 01/09/19 09:26 Protonix Tab* PO 40 mg DAILY CARLEE Administration Senna 2 tab 12/29/18 11:32 01/07/19 19:45 Senokot 8.6 Mg Tab* PO 2 tab BEDTIME PRN Administration CONSTIPATION Sodium Biphosphate/Sodium Phosphate 1 bottle 12/29/18 11:32 Fleet Enema* [place] DAILY PRN CONSTIPATION Vital Signs: Vital Signs Temp Pulse Resp BP Pulse Ox 96.1 F 77 20 133/49 98 01/09/19 16:52 01/09/19 16:52 01/09/19 16:52 01/09/19 16:52 01/09/19 16:52 Lab Results: Laboratory Results - last 24 hr 01/09/19 04:42 Sodium 130 L Potassium 5.3 H Chloride 106 Carbon Dioxide 17 L Anion Gap 7 BUN 56 H Creatinine 1.79 H Est GFR ( Amer) 32.3 Est GFR (Non-Af Amer) 26.7 BUN/Creatinine Ratio 31.3 H Glucose 103 H Calcium 9.2 Exam: GENERAL: No acute distress HEENT: Left facial droop LUNGS: Clear to auscultation bilaterally. HEART: Regular rate and rhythm, II/ systolic murmur ABDOMEN: Soft, + bowel sounds, non-tender, non-distended EXTREMITIES: No edema. NEUROLOGIC: Sensation intact x4. Motor 4/4 BUE and BLE except trace left DF/EHL. Assessment/Plan: 1. 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 Hypercholesterolemia: Lipitor 3. DVT Prophylaxis: Heparin S/Q 4. Advance Directives: Full Code 5. HTN: Lisinopril/Norvasc 6. Renal failure with increasing BUN/Cr: Better today; likely from Bactrim, recheck on Saturday 7. Estimated LOS: 01/23/19 01/09/19 17:02
[2019-01-09] MEDS: Atorvastatin* 80 MG TAB PO SCH (17:45)
--- NOTE | 2019-01-10 09:52 | PN ---
Progress Note Date of Service: 01/10/19 Note: PEPPER RAMOS was visited. Therapy notes read and reviewed. She has no complaints this morning. Feels tired, will d/w her daughter halfway plans next week Current Medications: Active Medications Generic Name Dose Route Start Last Admin Trade Name Carrollq PRN Reason Stop Dose Admin Acetaminophen 650 mg 12/29/18 11:32 01/08/19 12:18 Tylenol Tab* PO 650 mg Q6H PRN Administration MILD PAIN or TEMP > 100.4 Amlodipine Besylate 2.5 mg 12/30/18 09:00 01/09/19 09:26 Norvasc Tab* PO 2.5 mg DAILY CARLEE Administration Aspirin 81 mg 12/30/18 09:00 01/09/19 09:34 Aspirin Ec Tab* PO Not Given DAILY CARLEE Atorvastatin Calcium 80 mg 12/30/18 17:00 01/09/19 17:45 Lipitor* PO 80 mg 1700 CARLEE Administration Clopidogrel Bisulfate 75 mg 12/30/18 09:00 01/09/19 09:26 Plavix Tab* PO 75 mg DAILY CARLEE Administration Docusate Sodium 100 mg 12/29/18 21:00 01/09/19 20:25 Colace Cap* PO 100 mg BID CARLEE Administration Heparin Sodium (Porcine) 5,000 units 12/29/18 21:00 01/09/19 20:25 Heparin Vial(*) SUBCUT 5,000 units Q12HR CARLEE Administration Lisinopril 40 mg 12/30/18 09:00 01/09/19 09:27 Prinivil Tab* PO 40 mg DAILY CARLEE Administration Pantoprazole Sodium 40 mg 12/30/18 09:00 01/09/19 09:26 Protonix Tab* PO 40 mg DAILY CARLEE Administration Senna 2 tab 12/29/18 11:32 01/07/19 19:45 Senokot 8.6 Mg Tab* PO 2 tab BEDTIME PRN Administration CONSTIPATION Sodium Biphosphate/Sodium Phosphate 1 bottle 12/29/18 11:32 Fleet Enema* [place] DAILY PRN CONSTIPATION Vital Signs: Vital Signs Temp Pulse Resp BP Pulse Ox 97.4 F 74 18 117/47 100 01/10/19 05:27 01/10/19 05:27 01/10/19 05:27 01/10/19 05:27 01/10/19 05:27 Exam: GENERAL: No acute distress HEENT: Left facial droop LUNGS: Clear to auscultation bilaterally. HEART: Regular rate and rhythm, II/ systolic murmur ABDOMEN: Soft, + bowel sounds, non-tender, non-distended EXTREMITIES: No edema. NEUROLOGIC: Sensation intact x4. Motor 4/4 BUE and BLE except trace left DF/EHL. Assessment/Plan: 1. 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 Hypercholesterolemia: Lipitor 3. DVT Prophylaxis: Heparin S/Q 4. Advance Directives: Full Code 5. HTN: Lisinopril/Norvasc 6. Renal failure with increasing BUN/Cr: Better today; likely from Bactrim, recheck in am 7. Estimated LOS: 01/23/19 01/10/19 09:52 01/10/19 09:52
[2019-01-10] MEDS: amLODIPine TAB* 5 MG PO SCH (10:57)
[2019-01-10] MEDS: Heparin VIAL(*) 5000 UNITS/ML VIAL (FIVE THOUSAND) SUBCUT SCH ×2 (10:58→20:49)
[2019-01-10] MEDS: Docusate CAP* 100 MG PO SCH ×2 (10:58→20:48)
[2019-01-10] MEDS: Aspirin EC TAB* 81 MG TAB.EC PO SCH (10:58)
[2019-01-10] MEDS: Lisinopril TAB* 10 MG PO SCH (10:58)
[2019-01-10] MEDS: Clopidogrel TAB* 75 MG PO SCH (10:58)
[2019-01-10] MEDS: Pantoprazole TAB * 40 MG TAB PO SCH (10:59)
[2019-01-10] MEDS: Atorvastatin* 80 MG TAB PO SCH (18:32)
[2019-01-11 05:02] LABS: BUN/Creatinine Ratio 32.5 (8-20); Calcium 9.2 mg/dL (8.6-10.3); EGFR Non-African American 29.8 (>60)
[2019-01-11 05:06] LABS: Potassium 5.2 mmol/L (3.5-5.0)
[2019-01-11] MEDS: amLODIPine TAB* 5 MG PO SCH (11:37)
[2019-01-11] MEDS: Clopidogrel TAB* 75 MG PO SCH (11:37)
[2019-01-11] MEDS: Docusate CAP* 100 MG PO SCH ×2 (11:37→21:19)
[2019-01-11] MEDS: Aspirin EC TAB* 81 MG TAB.EC PO SCH (11:37)
[2019-01-11] MEDS: Heparin VIAL(*) 5000 UNITS/ML VIAL (FIVE THOUSAND) SUBCUT SCH ×2 (11:38→21:19)
[2019-01-11] MEDS: Lisinopril TAB* 10 MG PO SCH (11:39)
[2019-01-11] MEDS: Pantoprazole TAB * 40 MG TAB PO SCH (11:39)
[2019-01-11] MEDS: Atorvastatin* 80 MG TAB PO SCH (17:47)
--- NOTE | 2019-01-11 18:19 | PN ---
Progress Note Date of Service: 01/11/19 Note: PEPPER RAMOS was visited. Nursing notes read and reviewed. She feels tired today even though there was no therapy Current Medications: Active Medications Generic Name Dose Route Start Last Admin Trade Name Jorge PRN Reason Stop Dose Admin Acetaminophen 650 mg 12/29/18 11:32 01/08/19 12:18 Tylenol Tab* PO 650 mg Q6H PRN Administration MILD PAIN or TEMP > 100.4 Amlodipine Besylate 2.5 mg 12/30/18 09:00 01/11/19 11:37 Norvasc Tab* PO 2.5 mg DAILY CARLEE Administration Aspirin 81 mg 12/30/18 09:00 01/11/19 11:37 Aspirin Ec Tab* PO 81 mg DAILY CARLEE Administration Atorvastatin Calcium 80 mg 12/30/18 17:00 01/11/19 17:47 Lipitor* PO 80 mg 1700 CARLEE Administration Clopidogrel Bisulfate 75 mg 12/30/18 09:00 01/11/19 11:37 Plavix Tab* PO 75 mg DAILY CARLEE Administration Docusate Sodium 100 mg 12/29/18 21:00 01/11/19 11:37 Colace Cap* PO 100 mg BID CARLEE Administration Heparin Sodium (Porcine) 5,000 units 12/29/18 21:00 01/11/19 11:38 Heparin Vial(*) SUBCUT 5,000 units Q12HR CARLEE Administration Lisinopril 40 mg 12/30/18 09:00 01/11/19 11:39 Prinivil Tab* PO 40 mg DAILY CARLEE Administration Pantoprazole Sodium 40 mg 12/30/18 09:00 01/11/19 11:39 Protonix Tab* PO 40 mg DAILY CARLEE Administration Senna 2 tab 12/29/18 11:32 01/07/19 19:45 Senokot 8.6 Mg Tab* PO 2 tab BEDTIME PRN Administration CONSTIPATION Sodium Biphosphate/Sodium Phosphate 1 bottle 12/29/18 11:32 Fleet Enema* [place] DAILY PRN CONSTIPATION Vital Signs: Vital Signs Temp Pulse Resp BP Pulse Ox 97.5 F 76 18 120/41 95 01/11/19 05:22 01/11/19 05:22 01/11/19 05:22 01/11/19 05:22 01/11/19 05:22 Lab Results: Laboratory Results - last 24 hr 01/11/19 04:28 Sodium 130 L Potassium 5.2 H Chloride 105 Carbon Dioxide 19 L Anion Gap 6 BUN 53 H Creatinine 1.63 H Est GFR ( Amer) 36.0 Est GFR (Non-Af Amer) 29.8 BUN/Creatinine Ratio 32.5 H Glucose 118 H Calcium 9.2 Exam: GENERAL: No acute distress HEENT: Left facial droop LUNGS: Clear to auscultation bilaterally. HEART: Regular rate and rhythm, II/ systolic murmur ABDOMEN: Soft, + bowel sounds, non-tender, non-distended EXTREMITIES: No edema. NEUROLOGIC: Sensation intact x4. Motor 4/4 BUE and BLE except trace left DF/EHL. Assessment/Plan: 1. 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 Hypercholesterolemia: Lipitor 3. DVT Prophylaxis: Heparin S/Q 4. Advance Directives: Full Code 5. HTN: Lisinopril/Norvasc 6. Renal failure with increasing BUN/Cr: Better again today; likely from Bactrim 7. Estimated LOS: 01/23/19 01/11/19 18:19
[2019-01-11] MEDS: Senna TAB 8.6 mg* TAB PO PRN (21:19)
[2019-01-12] MEDS: Aspirin EC TAB* 81 MG TAB.EC PO SCH (09:01)
[2019-01-12] MEDS: amLODIPine TAB* 5 MG PO SCH (09:01)
[2019-01-12] MEDS: Pantoprazole TAB * 40 MG TAB PO SCH (09:02)
[2019-01-12] MEDS: Heparin VIAL(*) 5000 UNITS/ML VIAL (FIVE THOUSAND) SUBCUT SCH ×2 (09:02→19:55)
[2019-01-12] MEDS: Clopidogrel TAB* 75 MG PO SCH (09:02)
[2019-01-12] MEDS: Docusate CAP* 100 MG PO SCH ×2 (09:02→19:55)
[2019-01-12] MEDS: Lisinopril TAB* 10 MG PO SCH (09:02)
--- NOTE | 2019-01-12 17:08 | PN ---
Progress Note Date of Service: 01/12/19 Note: PEPPER RAMOS was visited. Therapy notes read and reviewed. She has no complaints. She feels tired and team is not sure she will make it home. Current Medications: Active Medications Generic Name Dose Route Start Last Admin Trade Name Freq PRN Reason Stop Dose Admin Acetaminophen 650 mg 12/29/18 11:32 01/08/19 12:18 Tylenol Tab* PO 650 mg Q6H PRN Administration MILD PAIN or TEMP > 100.4 Amlodipine Besylate 2.5 mg 12/30/18 09:00 01/12/19 09:01 Norvasc Tab* PO 2.5 mg DAILY CARLEE Administration Aspirin 81 mg 12/30/18 09:00 01/12/19 09:01 Aspirin Ec Tab* PO 81 mg DAILY CARLEE Administration Atorvastatin Calcium 80 mg 12/30/18 17:00 01/11/19 17:47 Lipitor* PO 80 mg 1700 CARLEE Administration Clopidogrel Bisulfate 75 mg 12/30/18 09:00 01/12/19 09:02 Plavix Tab* PO 75 mg DAILY CARLEE Administration Docusate Sodium 100 mg 12/29/18 21:00 01/12/19 09:02 Colace Cap* PO 100 mg BID CARLEE Administration Heparin Sodium (Porcine) 5,000 units 12/29/18 21:00 01/12/19 09:02 Heparin Vial(*) SUBCUT 5,000 units Q12HR CARLEE Administration Lisinopril 40 mg 12/30/18 09:00 01/12/19 09:02 Prinivil Tab* PO 40 mg DAILY CARLEE Administration Pantoprazole Sodium 40 mg 12/30/18 09:00 01/12/19 09:02 Protonix Tab* PO 40 mg DAILY CARLEE Administration Senna 2 tab 12/29/18 11:32 01/11/19 21:19 Senokot 8.6 Mg Tab* PO 2 tab BEDTIME PRN Administration CONSTIPATION Sodium Biphosphate/Sodium Phosphate 1 bottle 12/29/18 11:32 Fleet Enema* [place] DAILY PRN CONSTIPATION Vital Signs: Vital Signs Temp Pulse Resp BP Pulse Ox 97.7 F 92 16 109/51 100 01/12/19 04:32 01/12/19 10:00 01/12/19 10:00 01/12/19 10:00 01/12/19 10:00 Exam: GENERAL: No acute distress HEENT: Left facial droop LUNGS: Clear to auscultation bilaterally. HEART: Regular rate and rhythm, II/ systolic murmur ABDOMEN: Soft, + bowel sounds, non-tender, non-distended EXTREMITIES: No edema. NEUROLOGIC: Sensation intact x4. Motor 4/4 BUE and BLE except trace left DF/EHL. Assessment/Plan: 1. 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 Hypercholesterolemia: Lipitor 3. DVT Prophylaxis: Heparin S/Q 4. Advance Directives: Full Code 5. HTN: Lisinopril/Norvasc 6. Renal failure/high BUN/Cr: Has improved; likely from Bactrim 7. Estimated LOS: 01/23/19 01/12/19 17:08
[2019-01-12] MEDS: Atorvastatin* 80 MG TAB PO SCH (17:44)
[2019-01-13] MEDS: Lisinopril TAB* 10 MG PO SCH (10:09)
[2019-01-13] MEDS: Docusate CAP* 100 MG PO SCH ×2 (10:09→20:02)
[2019-01-13] MEDS: Pantoprazole TAB * 40 MG TAB PO SCH (10:10)
[2019-01-13] MEDS: Aspirin EC TAB* 81 MG TAB.EC PO SCH (10:10)
[2019-01-13] MEDS: amLODIPine TAB* 5 MG PO SCH (10:10)
[2019-01-13] MEDS: Clopidogrel TAB* 75 MG PO SCH (10:10)
[2019-01-13] MEDS: Heparin VIAL(*) 5000 UNITS/ML VIAL (FIVE THOUSAND) SUBCUT SCH ×2 (10:10→20:02)
--- NOTE | 2019-01-13 12:31 | PMRUTEAM ---
PMRU: Team Meeting Current Status: Nursing: Current Status Skin Deviations [left wrist] Abrasion Skin Deviations [left forearm] Previous Access Point Skin Deviations [Midline Other Coccyx] Skin Deviations [Right Hand] Bruise Skin Deviations [Left Arm] Bruise Skin Deviations [Left Shoulder Abrasion ] Skin Deviation Description [ pressure wound from watch s/p fall brorwnish, left wrist] intact, no significant change from Saturday-appears to be healing-puckeringn around edges Skin Deviation Description [ healed left forearm] Skin Deviation Description [ lotion applied Midline Coccyx] Skin Deviation Description [ healing, mostly shadowing; from blood draw Right Hand] Skin Deviation Description [ healed Left Arm] Bladder Current Status incontinent of urine, voids Bowel Current Status colace given Nutrition Current Status appetite good Medication Current Status needs reinforcement Physical Therapy: Current Status Bed Mobility Assistance Min Assist Transfer Mobility Assistance Min Assist,Mod Assist Transfer/Bed Mobility Rolling Walker Recommended Devices Ambulation Assistance Min Assist Ambulation Assistive Devices Rolling Walker Number of Feet Patient 35 Ambulated Stairs Assistance Not Tested Curb Not Tested Objective Comments standing balance: static standing multiple bouts with UE support, intermittent posterior perturbations to promote anterior trunk correction with improved posture noted and no LOB; multiple bouts to fatigue Occupational Therapy: Current Status Upper Body Dressing Min Assist Lower Body Dressing Max Asst,2 Person Assist Bathing Mod Assist,2 Person Assist Toileting Max Asst,Total Assist,2 Person Assist Toilet Transfer Mod Assist,2 Person Assist Toilet Transfer Progress 2* posterior lean Shower Transfer Progress NA Eating Supervision Instrumental ADL [facility] ADL 03/15=70.42% Rec Therapy: Current Status Summary of Assessment and Recreation Therapy services introduced and Clinical Impression assessment completed. Pt. is open to continued leisure visits but not pet therapy. Pt. has been observed sleeping during the afternoon recreation time but has taken advantage of massage therapy. Treatment Goals Pt. will engage in leisure activities while on the unit. Treatment Plan Provide recreation therapy services and encourage involvement. Nutrition: Current Status Monitoring cont w/left hemiplegia; right-hand dominant. Denies difficulty w/self-feeding. c/o weakness and fatigue. Some adjustments made to meals a few days ago. PO intake is variable, but averaging ~ 60 of meals. Ensure Enlive offered daily at 3pm. Cr and K both slightly better 01/11 following d/c of Bactrim 01/06. Daily Colace; daily BMs. Will cont to follow and encourage intake. Speech: Current Status Assessment Patient demonstrated functional coognitive- linguistic abilities, with apparent cognitive- motor deficits during skilled observation of functional activities and exercises with OT and PT . Patient problem solved use of her electric toothbrush, initially brushing by hand then almost immeidately stopping to turn it on. Patient demonstrably comprehended verbal directions and even repeated them to self, but demonstrated mild difficulty coordinating her physical responses. No further skilled speech-language interventions are indicated. Goals: Physical Therapy: Initial Goals Bed Mobility Assistance Independent Transfer Mobility Assistance Independent Transfer/Bed Mobility Rolling Walker Recommended Devices Ambulation Independent Ambulation Recommended Devices Rolling Walker Ambulation Distance 150 Stairs Assistance Independent Stair Recommended Devices Two Rails Number of Stairs 5 Physical Therapy: Updated Goals Transfer/Bed Mobility EZ Stand Recommended Devices Occupational Therapy: Initial Goals Goals to be Completed in (Days 21-28 days ) Upper Body Bathing Routine Independent Lower Body Bathing Routine Modified Independent with Upper Body Dressing Routine Independent Lower Body Dressing Routine Modified Independent with Toilet Hygeine and Clothing Modified Independent with Management Routine Toilet Transfer Routine Modified Independent with Tub Transfer Routine Modified Independent with Functional Transfers for ADL Modified Independent with Grooming Routine Modified Independent with Feeding Routine Independent Nursing: Goals Bladder Goal independent Bowel Goal independent Nutrition Goal 100% of all meals consumed Medication Goal independent Nutrition: Goals Intervention Goals 1. Pt will tolerate soft texture foods without difficulty chewing 2. Intake will be adequate to support stable wt without unintended wt loss 3. Achieve and maintain serum electrolytes and BUN /Cr within normal ranges Speech: Goals Goal 1 Comments Patient demonstrated functional coognitive- linguistic abilities, with apparent cognitive- motor deficits during skilled observation of functional activities and exercises with OT and PT . Patient problem solved use of her electric toothbrush, initially brushing by hand then almost immeidately stopping to turn it on. Patient demonstrably comprehended verbal directions and even repeated them to self, but demonstrated mild difficulty coordinating her physical responses. No further skilled speech-language interventions are indicated. Care Plan: Care Plan ADL's - Improve/Maintain Start: 12/29/18 14:52 Freq: DAILY@0700,1900 Status: Active Target: 01/23/19 Protocol: Activity Type Activity Date Activity User E-Sign Co-Sign Detail Recorded Client Recorded Date Recorded By Document 01/12/19 12:31 [id number] [id number] 01/12/19 12:31 [id number] 01/12/19 12:31 PMRU Outcome: ADL's/ADL Transfers Orders/Interventions Occupational Therapy Evaluation & Treatment Communication Tool in Patient Room Device Yes Address Deficits Secondary To: CVA Patient to receive OT 5x/wk for 60-120 Therex min/day Self Care Management Group Therapy Neuromuscular ReEducation UE/LE ADL's with Assist Yes: Mehdi ADL Transfers with Assist Yes: Mehdi Toileting: Transfers,Clothing Management Yes: Mehdi ,Hygeine w/Assist Light Kitchen/Laundry w/Assist Yes: Mehdi Progression Toward Outcome/Goals Not Progressing Lack of Progression Comment Pt participated in ADL session as described above with max v/c's and modA throughout, increased assistance in standing. Cardiovascular- Improve/Maintain Start: 12/29/18 23:49 Freq: DAILY@[id number] Status: Complete Target: 01/16/19 Protocol: Activity Type Activity Date Activity User E-Sign Co-Sign Detail Recorded Client Recorded Date Recorded By Document 01/12/19 19:00 [id number] [id number] 01/12/19 21:29 [id number] 01/12/19 19:00 PMRU Outcome: Cardiovascular Vital Signs q Shift for 48hrs Then BID Yes Daily Weight Ordered No Current Cardiovascular Outcome/Goal Maintain/ Achieve Baseline HR, BP , Perfusion Improve HR Within Prescribed Parameters Free of Abnormal Cardiac Symptoms Progression Toward Outcome/Goal Goals Met Outcomes/Goals Met Maintain/ Achieve Baseline HR, BP , Perfusion Communication-Improve/Maintain Start: 12/29/18 23:49 Freq: DAILY@[id number] Status: Active Target: 01/16/19 Protocol: Activity Type Activity Date Activity User E-Sign Co-Sign Detail Recorded Client Recorded Date Recorded By Document 01/12/19 23:39 [id number] [id number] 01/13/19 00:01 [id number] 01/12/19 23:39 PMRU Outcome: Communication/Cognitive Status Current Communication Outcome/Goals Use Comm Tools/ Devices Makes Needs Known Effectively Progression Toward Outcomes/Goals Progressing Coping/Psych-Improve/Maintain Start: 12/29/18 23:49 Freq: DAILY@699,1900 Status: Active Target: 01/16/19 Protocol: Activity Type Activity Date Activity User E-Sign Co-Sign Detail Recorded Client Recorded Date Recorded By Document 01/12/19 23:39 [id number] RU-C03 01/13/19 00:01 [id number] 01/12/19 23:39 PMRU Outcome: Coping/Psychosocial Current Coping Outcome/Goals Verbalization of Acceptance of Rehab Admit Verbalization of Sense of Control Over Health Status Utilization of Appropriate Problem Solving Techniques Willingness to Participate in Treatment Plan and Basic Needs Progression Toward Outcome/Goals Progressing Current Psychosocial Outcome/Goals Maintain/ Improve Emotional Health Demonstrates Knowledge of Healthy Coping Mechanisms Available Cooperate/ Participate in Plan Progression Toward Outcome/Goals Progressing DVT Prophylaxis- Improve/Maintain Start: 12/29/18 23:49 Freq: DAILY@0700,1900 Status: Active Target: 01/16/19 Protocol: Activity Type Activity Date Activity User E-Sign Co-Sign Detail Recorded Client Recorded Date Recorded By Document 01/12/19 23:39 [id number] [facility]-C03 01/13/19 00:01 [id number] 01/12/19 23:39 PMRU Outcome: DVT Prophylaxis Current DVT Outcome/Goals Remains Free of DVT Complies with DVT Prophylaxis /Treatment Demonstrates Knowledge of DVT Prevention/ Treatment TEDS Stockings on Every AM, Off at HS Progression Toward Outcome/Goals Progressing Discharge Planning - Improve/Maintain Start: 12/29/18 23:49 Freq: DAILY@0700,1900 Status: Active Target: 01/16/19 Protocol: Activity Type Activity Date Activity User E-Sign Co-Sign Detail Recorded Client Recorded Date Recorded By Document 01/12/19 23:39 [id number] RU-C03 01/13/19 00:01 [id number] 01/12/19 23:39 PMRU Outcome: Discharge Planning Update Patient Family No Current Discharge Planning Outcome/Goals Demonstrates Understanding of Discharge Plan Progression Toward Outcome/Goals Progressing Education-Improve/Maintain Start: 12/29/18 23:49 Freq: DAILY@0700,1900 Status: Active Target: 01/16/19 Protocol: Activity Type Activity Date Activity User E-Sign Co-Sign Detail Recorded Client Recorded Date Recorded By Document 01/12/19 23:39 [id number] [facility]-C03 01/13/19 00:01 [id number] 01/12/19 23:39 PMRU Outcome: Education Current Education Outcome/Goals Demonstrates Skills Encourage Questions Progression Toward Outcome/Goals Progressing /GI-Improve/Maintain Start: 12/29/18 23:49 Freq: DAILY@0700,1899 Status: Active Target: 01/16/19 Protocol: Activity Type Activity Date Activity User E-Sign Co-Sign Detail Recorded Client Recorded Date Recorded By Document 01/12/19 23:39 [id number] [id number] 01/13/19 00:01 [id number] 01/12/19 23:39 PMRU Outcome: Genitourinary/ Gastrointestinal Current Gastrointestinal Outcome/Goals Maintain/ Achieve Bowel Regularity in Accordance with Pt's Baseline Remain Free of Emesis Prevent Constipation Laxatives as Ordered Progression Toward Outcome/Goals Progressing Current Genitourinary Outcome/Goals Maintain/ Achieve Urinary Continence Maintain/ Achieve Adequate Urinary Output Remain Free of Hospital- Acquired UTI Progression Toward Outcome/Goals Progressing Medication Administration Start: 12/29/18 23:49 Freq: DAILY@[id number] Status: Active Target: 01/16/19 Protocol: Activity Type Activity Date Activity User E-Sign Co-Sign Detail Recorded Client Recorded Date Recorded By Document 01/12/19 23:39 [id number] PMRU-C03 01/13/19 00:01 [id number] 01/12/19 23:39 PMRU Outcome: Medication Administration Assess Patient Knowledge/Teach Med Yes Education for all Meds Current Field Service Rep Outcome/Goals Patient Independent with Medication Administration at Home Demonstrates Understanding Progression Towards Outcome/Goals Progressing Is Patient Going Home on Lovenox? No Mobility- Improve/Maintain Start: 12/29/18 18:39 Freq: DAILY@699,1899 Status: Active Target: 01/23/19 Protocol: Activity Type Activity Date Activity User E-Sign Co-Sign Detail Recorded Client Recorded Date Recorded By Document 01/06/19 16:49 [id number] [email or web address] 01/06/19 16:49 [id number] 01/06/19 16:49 PMRU Outcome: Mobility Physical Therapy Evaluation and Yes Treatment Activity OOB with Assistance Yes WBAT Yes Device Yes Assistance Yes Patient to be seen 5x/wk for 60-120 min/ Therex day for: Mobility Training Gait Training Balance Other Current Mobility Outcome/Goals Maintain/ Achieve Baseline Mobility Status Improve Mobility Status Demonstrates Proper Use of Assistive Devices Free from Complications of Immobility Progression Toward Outcome/Goals Progressing Outcome/Goals Met Improve Mobility Status Demonstrates Proper Use of Assistive Devices Bed Mobility Yes: independent Transfers Yes: independent with rolling walker. Gait x ft Yes: independnet with rolling walker to 150' Up/Down Stairs Yes: independent up/ down 5 stairs with 2 rails. Neurological- Improve/Maintain Start: 12/29/18 23:49 Freq: DAILY@699,1899 Status: Active Target: 01/16/19 Protocol: Activity Type Activity Date Activity User E-Sign Co-Sign Detail Recorded Client Recorded Date Recorded By Document 01/12/19 23:39 [id number] [email or web address] 01/13/19 00:01 [id number] 01/12/19 23:39 PMRU Outcome: Neurological Weakness/Aphasia Weakness Left Side Current Neurological Outcome/Goals Maintain/ Achieve Baseline Neurological Status Improve Neurological Status Prevent Avoidable Neurological Decline Demonstrate Knowledge of Prevention/Tx of Neuro Disorders/ Complication Maintain/ Improve Strength/ROM Progression Toward Outcome/Goals Progressing Pain/Comfort- Improve/Maintain Start: 12/30/18 08:03 Freq: DAILY@699,1899 Status: Complete Target: 01/16/19 Protocol: Activity Type Activity Date Activity User E-Sign Co-Sign Detail Recorded Client Recorded Date Recorded By Document 01/03/19 07:00 [id number] PMRU-C03 01/03/19 13:29 [id number] 01/03/19 07:00 PMRU Outcome: Pain/Comfort Current Pain/Comfort Outcome/Goals Demonstrates Knowledge and Use of Available Comfort Measures Achieves Acceptable Comfort/Pain Level as Determined by Patient/Condit Maintain Comfort Level Allowing Patient to Fully Participate in Rehab Progression Toward Outcome/Goals Goals Met Outcome/Goals Met Demonstrates Knowledge and Use of Available Comfort Measures Rec Therapy- Improve/Maintain Start: 12/29/18 16:49 Freq: DAILY@699,1899 Status: Active Target: 01/23/19 Protocol: Activity Type Activity Date Activity User E-Sign Co-Sign Detail Recorded Client Recorded Date Recorded By Document 01/06/19 16:56 [id number] [id number] 01/06/19 16:57 [id number] 01/06/19 16:56 PMRU Outcome: Recreation Therapy Current Rec Ther Outcome/Goals Meet with Patient Regularly for Support Encourage Leisure Involvement Progression Toward Outcome/Goals Progressing Lack of Progression Comment pt. was interactive in our leisure session today, pt. inquired about massage therapy and information was provided to her. support and encouragement provided. Outcome/Goals Met Meet with Patient Regularly for Support Encourage Leisure Involvement Safety- Improve/Maintain Start: 12/29/18 11:22 Freq: DAILY@0700,1900 Status: Active Target: 01/16/19 Protocol: Activity Type Activity Date Activity User E-Sign Co-Sign Detail Recorded Client Recorded Date Recorded By Document 01/12/19 23:39 [id number] [email or web address] 01/13/19 00:01 [id number] 01/12/19 23:39 PMRU Outcome: Safety Current Safety Outcome/Goals Remain Free of Injury or Harm Cooperates with Safety Measures for Least Restrictive Environment Prevent Falls/ Injury Progression Toward Outcome/Goals Progressing Outcome/Goals Met Comment JASPER armjasvir Skin- Improve/Maintain Start: 12/29/18 23:49 Freq: DAILY@0700,1900 Status: Active Target: 01/16/19 Protocol: Activity Type Activity Date Activity User E-Sign Co-Sign Detail Recorded Client Recorded Date Recorded By Document 01/12/19 23:39 [id number] [email or web address] 01/13/19 00:01 [id number] 01/12/19 23:39 PMRU Outcome: Skin Skin Risk Level Mild Risk Skin Orders Heels Off Bed Current Skin Outcome/Goals Maintain/ Improve Skin Integrity Free from Pressure Injury Progression Toward Outcome/Goals Progressing Medicine Note: Length of Stay: 1 1/2 weeks Anticipated Discharge Destination: SNF vs Home Tentative Discharge Date: 01/23/19 Discharged to: SNF vs Home
[2019-01-13] MEDS: Atorvastatin* 80 MG TAB PO SCH (17:31)
--- NOTE | 2019-01-13 19:55 | PN ---
Progress Note Date of Service: 01/13/19 Note: PEPPER RAMOS was visited. Therapy notes read and reviewed. She was discussed in interdisciplinary team rounds. She is having a great deal of trouble transferring from sitting to stand. Will likely need REMBERTO to continue rehab Current Medications: Active Medications Generic Name Dose Route Start Last Admin Trade Name Freq PRN Reason Stop Dose Admin Acetaminophen 650 mg 12/29/18 11:32 01/08/19 12:18 Tylenol Tab* PO 650 mg Q6H PRN Administration MILD PAIN or TEMP > 100.4 Amlodipine Besylate 2.5 mg 12/30/18 09:00 01/13/19 10:10 Norvasc Tab* PO 2.5 mg DAILY CARLEE Administration Aspirin 81 mg 12/30/18 09:00 01/13/19 10:10 Aspirin Ec Tab* PO 81 mg DAILY CARLEE Administration Atorvastatin Calcium 80 mg 12/30/18 17:00 01/13/19 17:31 Lipitor* PO 80 mg 1700 CARLEE Administration Clopidogrel Bisulfate 75 mg 12/30/18 09:00 01/13/19 10:10 Plavix Tab* PO 75 mg DAILY CARLEE Administration Docusate Sodium 100 mg 12/29/18 21:00 01/13/19 10:09 Colace Cap* PO 100 mg BID CARLEE Administration Heparin Sodium (Porcine) 5,000 units 12/29/18 21:00 01/13/19 10:10 Heparin Vial(*) SUBCUT 5,000 units Q12HR CARLEE Administration Lisinopril 40 mg 12/30/18 09:00 01/13/19 10:09 Prinivil Tab* PO 40 mg DAILY CARLEE Administration Pantoprazole Sodium 40 mg 12/30/18 09:00 01/13/19 10:10 Protonix Tab* PO 40 mg DAILY CARLEE Administration Senna 2 tab 12/29/18 11:32 01/11/19 21:19 Senokot 8.6 Mg Tab* PO 2 tab BEDTIME PRN Administration CONSTIPATION Sodium Biphosphate/Sodium Phosphate 1 bottle 12/29/18 11:32 Fleet Enema* [place] DAILY PRN CONSTIPATION Vital Signs: Vital Signs Temp Pulse Resp BP Pulse Ox 97.4 F 79 16 115/53 80 01/13/19 16:16 01/13/19 16:16 01/13/19 16:16 01/13/19 16:16 01/13/19 16:38 Exam: GENERAL: No acute distress HEENT: Left facial droop LUNGS: Clear to auscultation bilaterally. HEART: Regular rate and rhythm, II/ systolic murmur ABDOMEN: Soft, + bowel sounds, non-tender, non-distended EXTREMITIES: No edema. NEUROLOGIC: Sensation intact x4. Motor 4/4 BUE and BLE except trace left DF/EHL. Assessment/Plan: 1. 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 Hypercholesterolemia: Lipitor 3. DVT Prophylaxis: Heparin S/Q 4. Advance Directives: Full Code 5. HTN: Lisinopril/Norvasc 6. Renal failure/high BUN/Cr: Has improved; likely from Bactrim 7. Estimated LOS: 01/23/19, may need REMBERTO 01/13/19 19:55 01/13/19 19:56
[2019-01-14 06:15] LABS: ABS Basophils 0.1 10^3/ul (0-0.2); ABS Eosinophils 0.5 10^3/ul (0-0.6); ABS Lymphocytes 1.9 10^3/ul (1.0-4.8); ABS Monocytes 0.8 10^3/ul (0-0.8); ABS Neutrophils 3.9 10^3/ul (1.5-7.7); Eosinophil % 6.4 %; Hematocrit 26 % (35-47); Hemoglobin 8.9 g/dL (12.0-16.0); Lymphocyte % 26.7 %; Mean Corpuscular HGB Conc 34 g/dL (31-36); Mean Corpuscular Hemoglobin 31 pg (27-31); Mean Corpuscular Volume 91 fL (80-97); Mean Platelet Volume 7.4 fL (7.4-10.4); Platelet Count 357 10^3/uL (150-450); Red Blood Count 2.85 10^6 /uL (3.70-4.87); Red Cell Distribution Width 16 % (10-15); White Blood Count 7.2 10^3/uL (3.5-10.8)
[2019-01-14 06:28] LABS: Albumin 3.8 g/dL (3.2-5.2); Albumin/Globulin Ratio 1.3 (1-3); BUN/Creatinine Ratio 32.7 (8-20); Calcium 9.3 mg/dL (8.6-10.3); EGFR African American 37.9 (>60); EGFR Non-African American 31.3 (>60); Total Bilirubin 0.2 mg/dL (0.2-1.0); Total Protein 6.8 g/dL (6.4-8.9)
[2019-01-14 06:29] LABS: Potassium 5.3 mmol/L (3.5-5.0)
[2019-01-14] MEDS: Docusate CAP* 100 MG PO SCH ×2 (09:36→19:51)
[2019-01-14] MEDS: Aspirin EC TAB* 81 MG TAB.EC PO SCH (09:36)
[2019-01-14] MEDS: Clopidogrel TAB* 75 MG PO SCH (09:36)
[2019-01-14] MEDS: Pantoprazole TAB * 40 MG TAB PO SCH (09:37)
[2019-01-14] MEDS: Lisinopril TAB* 10 MG PO SCH (09:38)
[2019-01-14] MEDS: amLODIPine TAB* 5 MG PO SCH (09:38)
[2019-01-14] MEDS: Heparin VIAL(*) 5000 UNITS/ML VIAL (FIVE THOUSAND) SUBCUT SCH ×2 (09:40→19:53)
[2019-01-14] MEDS: Atorvastatin* 80 MG TAB PO SCH (16:27)
--- NOTE | 2019-01-14 19:15 | PN ---
Progress Note Date of Service: 01/14/19 Note: PEPPER RAMOS was visited. Therapy notes read and reviewed. She remains fatigued. She says she has a sore throat. Current Medications: Active Medications Generic Name Dose Route Start Last Admin Trade Name Freq PRN Reason Stop Dose Admin Acetaminophen 650 mg 12/29/18 11:32 01/08/19 12:18 Tylenol Tab* PO 650 mg Q6H PRN Administration MILD PAIN or TEMP > 100.4 Amlodipine Besylate 2.5 mg 12/30/18 09:00 01/14/19 09:38 Norvasc Tab* PO 2.5 mg DAILY CARLEE Administration Aspirin 81 mg 12/30/18 09:00 01/14/19 09:36 Aspirin Ec Tab* PO 81 mg DAILY CARLEE Administration Atorvastatin Calcium 80 mg 12/30/18 17:00 01/14/19 16:27 Lipitor* PO 80 mg 1700 CARLEE Administration Clopidogrel Bisulfate 75 mg 12/30/18 09:00 01/14/19 09:36 Plavix Tab* PO 75 mg DAILY CARLEE Administration Docusate Sodium 100 mg 12/29/18 21:00 01/14/19 09:36 Colace Cap* PO 100 mg BID CARLEE Administration Heparin Sodium (Porcine) 5,000 units 12/29/18 21:00 01/14/19 09:40 Heparin Vial(*) SUBCUT 5,000 units Q12HR CARLEE Administration Lisinopril 40 mg 12/30/18 09:00 01/14/19 09:38 Prinivil Tab* PO 40 mg DAILY CARLEE Administration Pantoprazole Sodium 40 mg 12/30/18 09:00 01/14/19 09:37 Protonix Tab* PO 40 mg DAILY CARLEE Administration Senna 2 tab 12/29/18 11:32 01/11/19 21:19 Senokot 8.6 Mg Tab* PO 2 tab BEDTIME PRN Administration CONSTIPATION Sodium Biphosphate/Sodium Phosphate 1 bottle 12/29/18 11:32 Fleet Enema* [place] DAILY PRN CONSTIPATION Vital Signs: Vital Signs Temp Pulse Resp BP Pulse Ox 97.6 F 80 28 129/53 100 01/14/19 04:35 01/14/19 04:35 01/14/19 04:35 01/14/19 04:35 01/14/19 08:00 Lab Results: Laboratory Results - last 24 hr 01/14/19 01/14/19 05:24 05:24 WBC 7.2 RBC 2.85 L Hgb 8.9 L Hct 26 L MCV 91 MCH 31 MCHC 34 RDW 16 H Plt Count 357 MPV 7.4 Neut % (Auto) 54.9 Lymph % (Auto) 26.7 Parker % (Auto) 11.1 Eos % (Auto) 6.4 Baso % (Auto) 0.9 Absolute Neuts (auto) 3.9 Absolute Lymphs (auto) 1.9 Absolute Monos (auto) 0.8 Absolute Eos (auto) 0.5 Absolute Basos (auto) 0.1 Absolute Nucleated RBC 0.0 Nucleated RBC % 0.0 Sodium 132 L Potassium 5.3 H Chloride 106 Carbon Dioxide 20 L Anion Gap 6 BUN 51 H Creatinine 1.56 H Est GFR ( Amer) 37.9 Est GFR (Non-Af Amer) 31.3 BUN/Creatinine Ratio 32.7 H Glucose 105 H Calcium 9.3 Total Bilirubin 0.20 AST 19 ALT 20 Alkaline Phosphatase 44 Total Protein 6.8 Albumin 3.8 Globulin 3.0 Albumin/Globulin Ratio 1.3 Exam: GENERAL: No acute distress HEENT: Left facial droop LUNGS: Clear to auscultation bilaterally. HEART: Regular rate and rhythm, II/ systolic murmur ABDOMEN: Soft, + bowel sounds, non-tender, non-distended EXTREMITIES: No edema. NEUROLOGIC: Sensation intact x4. Motor 4/4 BUE and BLE except trace left DF/EHL. Assessment/Plan: 1. 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 Hypercholesterolemia: Lipitor 3. DVT Prophylaxis: Heparin S/Q 4. Advance Directives: Full Code 5. HTN: Lisinopril/Norvasc 6. Renal failure/high BUN/Cr: Continues to improve; likely from Bactrim 7. Estimated LOS: 01/23/19, may need [facility]-prefers [facility] 8. Hyperkalemia: likely from lisinopril. Would not want to give HCTZ until BUN/ cr better 01/14/19 19:16 01/14/19 19:17
[2019-01-14] MEDS: Acetaminophen TAB* 325 MG PO PRN (19:51)
[2019-01-14] MEDS: Benzocaine/Menthol LOZ* 1 LOZENGE PO PRN (19:52)
[2019-01-15] MEDS: Benzocaine/Menthol LOZ* 1 LOZENGE PO PRN (04:30)
[2019-01-15 07:17] VITALS: BP 117/51
[2019-01-15] MEDS: Clopidogrel TAB* 75 MG PO SCH (08:55)
[2019-01-15] MEDS: Pantoprazole TAB * 40 MG TAB PO SCH (08:55)
[2019-01-15] MEDS: amLODIPine TAB* 5 MG PO SCH (08:55)
[2019-01-15] MEDS: Lisinopril TAB* 10 MG PO SCH (08:55)
[2019-01-15] MEDS: Aspirin EC TAB* 81 MG TAB.EC PO SCH (08:55)
[2019-01-15] MEDS: Docusate CAP* 100 MG PO SCH (08:55)
[2019-01-15] MEDS: Heparin VIAL(*) 5000 UNITS/ML VIAL (FIVE THOUSAND) SUBCUT SCH (09:00)
--- NOTE | 2019-01-15 12:21 | PN ---
Progress Note Date of Service: 01/15/19 Note: PEPPER RAMOS was visited. Therapy notes read and reviewed. For discharge to [facility], [place] today Current Medications: Active Medications Generic Name Dose Route Start Last Admin Trade Name Freq PRN Reason Stop Dose Admin Acetaminophen 650 mg 12/29/18 11:32 01/14/19 19:51 Tylenol Tab* PO 650 mg Q6H PRN Administration MILD PAIN or TEMP > 100.4 Amlodipine Besylate 2.5 mg 12/30/18 09:00 01/15/19 08:55 Norvasc Tab* PO 2.5 mg DAILY CARLEE Administration Aspirin 81 mg 12/30/18 09:00 01/15/19 08:55 Aspirin Ec Tab* PO 81 mg DAILY CARLEE Administration Atorvastatin Calcium 80 mg 12/30/18 17:00 01/14/19 16:27 Lipitor* PO 80 mg 1700 CARLEE Administration Clopidogrel Bisulfate 75 mg 12/30/18 09:00 01/15/19 08:55 Plavix Tab* PO 75 mg DAILY CARLEE Administration Docusate Sodium 100 mg 12/29/18 21:00 01/15/19 08:55 Colace Cap* PO 100 mg BID CARLEE Administration Heparin Sodium (Porcine) 5,000 units 12/29/18 21:00 01/15/19 09:00 Heparin Vial(*) SUBCUT 5,000 units Q12HR CARLEE Administration Lisinopril 40 mg 12/30/18 09:00 01/15/19 08:55 Prinivil Tab* PO 40 mg DAILY CARLEE Administration Pantoprazole Sodium 40 mg 12/30/18 09:00 01/15/19 08:55 Protonix Tab* PO 40 mg DAILY CARLEE Administration Senna 2 tab 12/29/18 11:32 01/11/19 21:19 Senokot 8.6 Mg Tab* PO 2 tab BEDTIME PRN Administration CONSTIPATION Sodium Biphosphate/Sodium Phosphate 1 bottle 12/29/18 11:32 Fleet Enema* CT DAILY PRN CONSTIPATION Throat Lozenges 1 courtney 01/14/19 19:18 01/15/19 04:30 Chloraseptic Courtney* PO 1 courtney Q6H PRN Administration SORE THROAT Vital Signs: Vital Signs Temp Pulse Resp BP Pulse Ox 97.5 F 76 20 117/51 99 01/15/19 04:35 01/15/19 04:35 01/15/19 04:35 01/15/19 04:35 01/15/19 04:35 Exam: GENERAL: No acute distress HEENT: Left facial droop LUNGS: Clear to auscultation bilaterally. HEART: Regular rate and rhythm, II/ systolic murmur ABDOMEN: Soft, + bowel sounds, non-tender, non-distended EXTREMITIES: No edema. NEUROLOGIC: Sensation intact x4. Motor 4/4 BUE and BLE except trace left DF/EHL. Assessment/Plan: 1. 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 Hypercholesterolemia: Lipitor 3. DVT Prophylaxis: Heparin S/Q 4. Advance Directives: Full Code 5. HTN: Lisinopril/Norvasc 6. Renal failure/high BUN/Cr: Continues to improve; likely from Bactrim 7. Estimated LOS: to [facility] [place] 8. Hyperkalemia: likely from lisinopril. Would not want to give HCTZ until BUN/ cr better 01/15/19 12:21
--- NOTE | 2019-01-15 14:28 | TRS ---
CC: [facility] * TRANSFER SUMMARY: DATE OF ADMISSION: 12/29/18 DATE OF TRANSFER: 01/15/19 DISCHARGE DIAGNOSES: 1. 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 2. Hypercholesterolemia. 3. Hypertension. 4. Urinary tract infection. 5. Acute renal failure. HISTORY OF ILLNESS AND HOSPITAL COURSE: For complete history the events leading up to her rehab stay, please see the history and physical dictated by me on 12/29/18. While on the rehab unit, the patient did develop a urinary tract infection which grew out E. coli. She was treated with 5 days of single- strength Bactrim. However, as a result of the Bactrim treatment, her creatinine marilee from 1.14 to 2.01. The Bactrim was stopped on 01/08/19 and her creatinine has since fallen to 1.56. She was noted to have mild hyperkalemia as a result of her CELINA inhibitor. We have not given her hydrochlorothiazide because of her renal function. The patient otherwise was medically stable. For her stroke, she was treated with dual- antiplatelet treatment. She received 21 days of Plavix and aspirin. She is now on Plavix alone. Otherwise, she was medically stable. She was seen by Physical Therapy and Occupational Therapy and made good gains with both disciplines. With physical therapy at the time of admission, the patient was dependent for transfers, unable to ambulate. With occupational therapy, she was dependent for lower body dressing, she was mod assist for upper body dressing, dependent for bathing, dependent for toileting and toilet transfers. By the time of discharge, the patient was able to transfer with contact guard, she ambulates 50 feet with contact guard. Her transfers do range from contact guard to min assist. With occupational therapy , the patient is still requiring mod assist for lower body dressing, min assist for upper body dressing, toilet transfers were mod assist, toileting was max assist. It was felt that the patient would not be able to return to her own apartment in the short-term. She is being transferred to [facility] in order to undergo continuing rehabilitation on a slightly slower scale that she might return to the independent living. She will be transferred to [facility] 01/15/19. DISCHARGE DIET: Regular, soft textures. DISCHARGE MEDICATIONS: 1. Plavix 75 mg daily. 2. Norvasc 2.5 mg daily. 3. Lipitor 80 mg daily at 5 p.m. 4. Lisinopril 40 mg daily. 5. Protonix 40 mg daily. 6. Colace 100 mg twice daily. 7. Senokot 2 tablets at bedtime. 8. Cepacol lozenges 1 every 6 hours as needed. SERVICES AFTER DISCHARGE: The patient should have restorative physical therapy and occupational therapy. FOLLOWUP: The patient can follow up with Neurology in 6 to 8 weeks. She will follow up with her primary care doctor, Dr. Cam, as needed. CONDITION AT DISCHARGE: The patient was in fair, but stable condition. TIME SPENT: Time for this discharge was approximately 35 minutes. [id number]/CPS #: [id number]
== END 2019-01-15 14:15 | DRG 57 ==
LOC: PMRU 10:50
PROVIDERS: ADMIT Physical Medicine & Rehabilitation; ATTEND Physical Medicine & Rehabilitation
PROC: F07Z5ZZ Bed Mobility Treatment (ICD-10-PCS; principal; 2018-12-29)
PROC: F07Z9ZZ Gait Training/Functional Ambulation Treatment (ICD-10-PCS; 2018-12-29)
PROC: F07Z8ZZ Transfer Training Treatment (ICD-10-PCS; 2018-12-29)
PROC: F08Z0ZZ Bathing/Showering Techniques Treatment (ICD-10-PCS; 2018-12-29)
PROC: F08Z1ZZ Dressing Techniques Treatment (ICD-10-PCS; 2018-12-29)
PROC: F08Z3ZZ Feeding/Eating Treatment (ICD-10-PCS; 2018-12-29)
PROC: F08Z4ZZ Home Management Treatment (ICD-10-PCS; 2018-12-29)
PROC: F06Z6ZZ Communicative/Cognitive Integration Skills Treatment (ICD-10-PCS; 2018-12-29)
DX: I69.354 Hemiplegia and hemiparesis following cerebral infarction affecting left non-dominant side (principal); N39.0 Urinary tract infection, site not specified; N17.9 Acute kidney failure, unspecified; E87.5 Hyperkalemia; I69.319 Unspecified symptoms and signs involving cognitive functions following cerebral infarction; B96.1 Klebsiella pneumoniae [K. pneumoniae] as the cause of diseases classified elsewhere; E78.00 Pure hypercholesterolemia, unspecified; R32 Unspecified urinary incontinence; I10 Essential (primary) hypertension; B96.20 Unspecified Escherichia coli [E. coli] as the cause of diseases classified elsewhere; E78.5 Hyperlipidemia, unspecified; T46.4X5A Adverse effect of angiotensin-converting-enzyme inhibitors, initial encounter; Y92.230 Patient room in hospital as the place of occurrence of the external cause; K21.9 Gastro-esophageal reflux disease without esophagitis; Z79.02 Long term (current) use of antithrombotics/antiplatelets; Z79.82 Long term (current) use of aspirin; Z79.899 Other long term (current) drug therapy; I69.392 Facial weakness following cerebral infarction
CPT/HCPCS: 36415; 80048; 80053; 81003; 81015; 85025; 87077; 87086; 87186; A9270-GY; G0515-GO; J1644

== ENCOUNTER 2019-01-25 18:36 | Emergency (ER) | payer MEDICARE ==
--- NOTE | 2019-01-25 19:02 | ED ---
Back Pain - HPI Summary HPI Summary: Patient complains of new onset left lateral chest wall pain starting yesterday. Pain is worse today, worse with deep inhalation. History of dry hacking cough 2 weeks. Patient states pain only when coughing, otherwise pain free. Cough is nonproductive. Patient is from [facility] where she is undergoing rehabilitation for CVA on 12/25. On Plavix. Denies trauma, fall, fever, REECE, sore throat, CP, SOB, N/V/V abdominal pain, change in urine, change in BM. Medical history is TIA, CVA, HTN. - History of Current Complaint Chief Complaint: EDBackInjuryPain Stated Complaint: BACK PAIN PER EMS Time Seen by Provider: 01/25/19 18:46 Hx Obtained From: Patient, Family/Records Assistant Onset/Duration: Sudden Onset, Lasting Hours Onset/Duration: Started Hours Ago Timing: Intermittent Back Pain Location: Is Discrete @ Severity Initially: Moderate Severity Currently: Moderate Pain Intensity: 5 Pain Scale Used: 0-10 Numeric Character: Sharp Aggravating Symptom(s): Movement, Bending, Cough Alleviating Symptom(s): Rest, Position Associated Signs And Symptoms: Positive: Negative - Allergies/Home Medications Allergies/Adverse Reactions: Allergies Allergy/AdvReac Type Severity Reaction Status Date / Time hydrocodone [From Vicodin] Allergy Unknown Verified 02/24/18 09:01 Reaction Details PMH/Surg Hx/FS Hx/Imm Hx Endocrine/Hematology History: Reports: Hx Blood Transfusions - last week, in hospital stay, Hx Anemia Denies: Hx Diabetes, Hx Thyroid Disease Cardiovascular History: Reports: Hx Angina, Hx Congestive Heart Failure, Hx Hypercholesterolemia, Hx Hypertension, Hx Syncope, Hx Valvular Heart Disease, Other Cardiovascular Problems/Disorders - NEW EF of 30%, cardiomyopathy, mitral/ tricuspid regurg Denies: Hx Pacemaker/ICD Respiratory History: Reports: Other Respiratory Problems/Disorders - pulmonary HTN GI History: Reports: Hx Gastroesophageal Reflux Disease, Other GI Disorders - Gallbladder distended History: Denies: Hx Renal Disease Comment Only: Other Problems/Disorders - ?CKD Musculoskeletal History: Reports: Hx Arthritis, Other Musculoskeletal History - disc compressions, compression fractures Denies: Hx Osteoporosis Sensory History: Reports: Hx Cataracts - left removed, Hx Contacts or Glasses Denies: Hx Deafness, Hx Hearing Aid Opthamlomology History: Reports: Hx Cataracts - left removed, Hx Contacts or Glasses Neurological History: Reports: Hx Transient Ischemic Attacks (TIA) - 2018 Psychiatric History: Denies: Hx Panic Disorder - Cancer History Cancer Type, Location and Year: None reported - Surgical History Surgery Procedure, Year, and Place: Tonsilectomy. cataracts. laproscpoic galbladder Infectious Disease History: No Infectious Disease History: Denies: Traveled Outside the [place] in Last 30 Days - Family History Known Family History: Negative: Renal Disease - Social History Alcohol Use: None Substance Use Type: Reports: None Hx Tobacco Use: Yes Smoking Status (MU): Never Smoked Tobacco Type: Cigarettes Amount Used/How Often: 1ppd Length of Time of Smoking/Using Tobacco: 60s Have You Smoked in the Last Year: No Review of Systems Constitutional: Negative Eyes: Negative ENT: Negative Cardiovascular: Negative Positive: Cough Gastrointestinal: Negative Genitourinary: Negative Musculoskeletal: Negative Skin: Negative Neurological: Negative Psychological: Normal All Other Systems Reviewed And Are Negative: Yes Physical Exam - Summary Physical Exam Summary: No ecchymosis, erythema, deformity, swelling and to left lateral chest wall. Mild pain with palpation. Lung sounds clear to auscultation bilaterally. Regular rate and rhythm. Abdomen soft nontender. Triage Information Reviewed: Yes Vital Signs On Initial Exam: Initial Vitals Temp Pulse Resp BP Pulse Ox 98.2 F 90 18 159/81 97 01/25/19 18:38 01/25/19 18:38 01/25/19 18:38 01/25/19 18:38 01/25/19 18:38 Vital Signs Reviewed: Yes Appearance: Positive: Well-Appearing Skin: Positive: Warm Head/Face: Positive: Normal Head/Face Inspection Eyes: Positive: Normal ENT: Positive: Normal ENT inspection Neck: Positive: Supple Respiratory/Lung Sounds: Positive: Clear to Auscultation Cardiovascular: Positive: Normal Abdomen Description: Positive: Nontender Musculoskeletal: Positive: Normal Neurological: Positive: Normal Psychiatric: Positive: Normal AVPU Assessment: Alert - Nai Coma Scale Best Eye Response: 4 - Spontaneous Best Motor Response: 6 - Obeys Commands Best Verbal Response: 5 - Oriented Coma Scale Total: 15 Procedures - Sedation Patient Received Moderate/Deep Sedation with Procedure: No Diagnostics - Vital Signs Vital Signs Temp Pulse Resp BP Pulse Ox 01/25/19 18:38 98.2 F 90 18 159/81 97 - Laboratory Result Diagrams: 01/25/19 19:10 01/25/19 19:10 Lab Statement: Any lab studies that have been ordered have been reviewed, and results considered in the medical decision making process. Back Pain Course/Dx - Course Course Of Treatment: Patient complains of new onset left lateral chest wall pain starting yesterday. Pain is worse today, worse with deep inhalation. History of dry hacking cough 2 weeks. Patient states pain only when coughing, otherwise pain free. Cough is nonproductive. Patient is from [facility] where she is undergoing rehabilitation for CVA on 12/25. On Plavix. Denies trauma, fall, fever, REECE, sore throat, CP, SOB, N/V/V abdominal pain, change in urine, change in BM. Medical history is TIA, CVA, HTN. Vital signs within normal limits. WBC 11.4. Hemoglobin 8.4 which is new patient baseline. Sodium 132 which in a patient baseline. Creatinine 1.16 which is a patient baseline. Chest x-ray unremarkable. EKG sinus rhythm, heart rate of 88, normal P axis. Rx for azithromycin and Tessalon. - Diagnoses Provider Diagnoses: Cough, Chest wall pain, Respiratory infection Discharge ED - Sign-Out/Discharge Documenting (check all that apply): Patient Departure - Discharge Plan Condition: Stable Disposition: RETIREMENT FACILITY Prescriptions: Azithromycin 250 mg PO DAILY 4 Days #4 tablet Benzonatate CAP* [Tessalon 100 MG CAP*] 200 mg PO TID 6 Days #40 cap Patient Education Materials: Acute Cough (ED) Referrals: Cynthia Cam MD [Primary Care Provider] - Additional Instructions: Take azithromycin as directed for respiratory infection. Take Tessalon for cough. Take Tylenol for chest wall pain related to cough. Follow-up with primary care. Return to the ED for any new or worsening symptoms. - Billing Disposition and Condition Condition: STABLE Disposition: Nursing Home Facility - Attestation Statements Provider Attestation: I was available for consult. This patient was seen by the VALDEZ. The patient was not presented to, seen by, or examined by me. Fletcher Ibrahim MD
[2019-01-25 19:16] LABS: ABS Basophils 0.1 10^3/ul (0-0.2); ABS Eosinophils 0.3 10^3/ul (0-0.6); ABS Lymphocytes 1.8 10^3/ul (1.0-4.8); ABS Neutrophils 8.3 10^3/ul (1.5-7.7); Eosinophil % 2.6 %; Hematocrit 25 % (35-47); Hemoglobin 8.4 g/dL (12.0-16.0); Lymphocyte % 15.4 %; Mean Corpuscular HGB Conc 34 g/dL (31-36); Mean Corpuscular Hemoglobin 31 pg (27-31); Mean Corpuscular Volume 91 fL (80-97); Mean Platelet Volume 7.1 fL (7.4-10.4); Platelet Count 262 10^3/uL (150-450); Red Blood Count 2.75 10^6 /uL (3.70-4.87); Red Cell Distribution Width 16 % (10-15); White Blood Count 11.4 10^3/uL (3.5-10.8)
[2019-01-25 19:36] LABS: Albumin 3.7 g/dL (3.2-5.2); Albumin/Globulin Ratio 1.2 (1-3); BUN/Creatinine Ratio 24.1 (8-20); C Reactive Protein 21.49 mg/L (<8.01); Calcium 8.8 mg/dL (8.6-10.3); EGFR African American 36.3 (>60); Globulin 3.2 g/dL (2-4); Potassium 4.8 mmol/L (3.5-5.0); Total Bilirubin 0.3 mg/dL (0.2-1.0); Total Protein 6.9 g/dL (6.4-8.9)
[2019-01-25 19:37] LABS: Troponin I 0.03 ng/mL (<0.04)
[2019-01-25] MEDS ORDERED: Azithromycin TAB* 250 MG PO ONE (20:19)
[2019-01-25] MEDS ORDERED: Benzonatate CAP* 100 MG PO ONE (20:20)
[2019-01-25 21:25] VITALS: BP 144/100
== END 2019-01-25 21:30 ==
LOC: ED 18:36
DX: R07.89 Other chest pain (principal); R05 Cough; J98.8 Other specified respiratory disorders; I11.0 Hypertensive heart disease with heart failure; I50.9 Heart failure, unspecified; Z79.01 Long term (current) use of anticoagulants; Z86.73 Personal history of transient ischemic attack (TIA), and cerebral infarction without residual deficits; Z88.5 Allergy status to narcotic agent
CPT/HCPCS: 36415; 71046; 80053; 84484; 85025; 86140; 93005; 99283; A9270-GY

== ENCOUNTER 2019-04-12 10:34 | Emergency (ER) | payer MEDICARE ==
--- NOTE | 2019-04-12 11:00 | ED ---
Abdominal Pain/Female - HPI Summary HPI Summary: Patient is an 88-year-old female who presents emergency Department with complaints of constipation 2-3 weeks. Patient states she's been having very small and frequent bowel movements of the last 2-3 weeks. She notes pressure to her rectum. Denies passing blood. Denies fever, chills, vomiting, chest pain, shortness of breath. Denies history of bowel obstruction. Symptoms are moderate in severity. No current modifying factors. - History of Current Complaint Chief Complaint: EDConstipation Stated Complaint: THINKS BOWEL IMPACTION PER PT Time Seen by Provider: 04/12/19 10:44 Hx Obtained From: Patient, Family/Referral And Information Aide Pain Intensity: 8 Allergies/Adverse Reactions: Allergies Allergy/AdvReac Type Severity Reaction Status Date / Time No Known Allergies Allergy Verified 04/12/19 10:41 Home Medications: Home Medications Atorvastatin* [Lipitor 80 MG*] 20 mg PO 1700 04/12/19 [History Confirmed ] Lisinopril TAB* [Prinivil TAB 10 MG*] 20 mg PO DAILY 04/12/19 [History Confirmed 04/12/19] amLODIPine TAB* [Norvasc 5 mg TAB*] 5 mg PO DAILY 04/12/19 [History Confirmed ] PMH/Surg Hx/FS Hx/Imm Hx Previously Healthy: Yes Endocrine/Hematology History: Reports: Hx Blood Transfusions - last week, in hospital stay, Hx Anemia Denies: Hx Diabetes, Hx Thyroid Disease Cardiovascular History: Reports: Hx Angina, Hx Congestive Heart Failure, Hx Hypercholesterolemia, Hx Hypertension, Hx Syncope, Hx Valvular Heart Disease, Other Cardiovascular Problems/Disorders - NEW EF of 30%, cardiomyopathy, mitral/ tricuspid regurg Denies: Hx Pacemaker/ICD Respiratory History: Reports: Other Respiratory Problems/Disorders - pulmonary HTN GI History: Reports: Hx Gastroesophageal Reflux Disease, Other GI Disorders - Gallbladder distended History: Denies: Hx Renal Disease Comment Only: Other Problems/Disorders - ?CKD Musculoskeletal History: Reports: Hx Arthritis, Other Musculoskeletal History - disc compressions, compression fractures Denies: Hx Osteoporosis Sensory History: Reports: Hx Cataracts - left removed, Hx Contacts or Glasses Denies: Hx Deafness, Hx Hearing Aid Opthamlomology History: Reports: Hx Cataracts - left removed, Hx Contacts or Glasses Neurological History: Reports: Hx Transient Ischemic Attacks (TIA) - 2018 Psychiatric History: Denies: Hx Panic Disorder - Cancer History Cancer Type, Location and Year: None reported - Surgical History Surgery Procedure, Year, and Place: Tonsilectomy. cataracts. laproscpoic galbladder Infectious Disease History: No Infectious Disease History: Denies: Traveled Outside the [place] in Last 30 Days - Family History Known Family History: Negative: Renal Disease - Social History Alcohol Use: None Substance Use Type: Reports: None Hx Tobacco Use: Yes Smoking Status (MU): Never Smoked Tobacco Type: Cigarettes Amount Used/How Often: 1ppd Length of Time of Smoking/Using Tobacco: 60s Have You Smoked in the Last Year: No Review of Systems Constitutional: Negative Negative: Fever Cardiovascular: Negative Respiratory: Negative Positive: Other - constipation and rectal pressure.. Negative: Abdominal Pain, Vomiting, Diarrhea Neurological: Negative All Other Systems Reviewed And Are Negative: Yes Physical Exam Triage Information Reviewed: Yes Vital Signs On Initial Exam: Initial Vitals Temp Pulse Resp BP Pulse Ox 97.5 F 88 16 165/92 98 04/12/19 10:37 04/12/19 10:37 04/12/19 10:37 04/12/19 10:37 04/12/19 10:37 Vital Signs Reviewed: Yes Appearance: Positive: Well-Appearing - Pt. sitting up in bed in NAD. Daughter present. Skin: Positive: Warm, Dry Head/Face: Positive: Normal Head/Face Inspection Eyes: Positive: Normal, EOMI, SONNY Neck: Positive: Supple Respiratory/Lung Sounds: Positive: Clear to Auscultation, Breath Sounds Present Cardiovascular: Positive: Normal, RRR Abdomen Description: Positive: Other: - Mildly distended. Soft and nontender throughout. Rectal exam reveals a distended anus with a large amount of soft stool in rectal vault. No blood. Neurological: Positive: Normal, CN Intact II-III Psychiatric: Positive: Affect/Mood Appropriate Procedures - Sedation Patient Received Moderate/Deep Sedation with Procedure: No Diagnostics - Vital Signs Vital Signs Temp Pulse Resp BP Pulse Ox 04/12/19 10:37 97.5 F 88 16 165/92 98 - Laboratory Lab Statement: Any lab studies that have been ordered have been reviewed, and results considered in the medical decision making process. Abdominal Pain Fem Course/Dx - Course Course Of Treatment: Pt. presenting with complaints of constipation. Afebrile and well appearing. Abd. xray shows a large amount of stool without signs of obstruction. Pt. nurses, Trudy and Nessa, were able to removal a large amount of stool through digit disimpaction. Pt. was then given a soap suds enema and she passed a large amount of soft, brown stool. Pt. feeling much better. Will dc home. Advised to increase fluids and fiber in diet. Continue stool softener/ laxative at home. F.u with pcp within one week and return to er if sxs change or worsen. pt. and family understand and agree with plan. - Diagnoses Provider Diagnoses: Constipation Discharge ED - Sign-Out/Discharge Documenting (check all that apply): Patient Departure - Discharge Plan Condition: Improved Disposition: HOME Prescriptions: bisacodyL [Bisacodyl] 5 mg PO BID #20 tablet. Patient Education Materials: Constipation (ED) Referrals: Cynthia Cam MD [Primary Care Provider] - Additional Instructions: Follow up with PCP within one week Increase fluids and fiber in diet Laxative as directed Return to ER if symptoms change or worsen - Billing Disposition and Condition Condition: IMPROVED Disposition: Home - Attestation Statements Provider Attestation: I was available for consult. This patient was seen by the VALDEZ. The patient was not presented to, seen by, or examined by me. Fletcher Ibrahim MD
[2019-04-12 12:49] VITALS: BP 135/93
== END 2019-04-12 12:48 | disposition home or self-care (01) ==
LOC: ED 10:34
DX: K59.00 Constipation, unspecified (principal); I11.0 Hypertensive heart disease with heart failure; I50.9 Heart failure, unspecified; E78.00 Pure hypercholesterolemia, unspecified; K21.9 Gastro-esophageal reflux disease without esophagitis; Z86.73 Personal history of transient ischemic attack (TIA), and cerebral infarction without residual deficits; Z87.891 Personal history of nicotine dependence; Z79.899 Other long term (current) drug therapy
CPT/HCPCS: 74018; 99283

== ENCOUNTER 2020-09-01 18:51 | Inpatient (IN) ==
[2020-09-01] MEDS ORDERED: cefTRIAXone 1 gm/50 mL NS BAG 1 GM/50 ML BAG IV ONE (20:59)
[2020-09-01] MEDS ORDERED: NS 0.9% 500 ml BAG 500 ML IV SCH (21:00)
[2020-09-01] MEDS ORDERED: Ondansetron 4 mg VIAL 2 MG/ML 2 ml VIAL IV ONE (21:00)
[2020-09-01] MEDS ORDERED: Morphine 2 MG/ML SYRINGE IV ONE (21:01)
[2020-09-01 21:10] LABS: ABS Basophils 0.1 10^3/ul (0-0.2); ABS Eosinophils 0.2 10^3/ul (0-0.6); ABS Lymphocytes 1.5 10^3/ul (1.0-4.8); Eosinophil % 1.5 %; Hematocrit 28 % (35-47); Hemoglobin 9.7 g/dL (12.0-16.0); Lymphocyte % 14.3 %; Mean Corpuscular HGB Conc 34 g/dL (31-36); Mean Corpuscular Hemoglobin 32 pg (27-31); Mean Corpuscular Volume 94 fL (80-97); Mean Platelet Volume 7.3 fL (7.4-10.4); Platelet Count 273 10^3/uL (150-450); Red Blood Count 3.01 10^6 /uL (3.70-4.87); Red Cell Distribution Width 14 % (10-15); White Blood Count 10.7 10^3/uL (3.5-10.8)
[2020-09-01 21:32] LABS: Albumin 3.6 g/dL (3.2-5.2); Calcium 9.3 mg/dL (8.6-10.3); EGFR African American 52.2 (>60); EGFR Non-African American 43.1 (>60); Globulin 3.5 g/dL (2-4); Potassium 4.2 mmol/L (3.5-5.0); Total Bilirubin 0.4 mg/dL (0.2-1.0); Total Protein 7.1 g/dL (6.4-8.9)
[2020-09-01] MEDS: NS 0.9% 1000 ml BAG 500 ML IV SCH (22:24)
[2020-09-01 23:27] LABS: C Reactive Protein 21.6 mg/L (<8.01)
[2020-09-02] MEDS ORDERED: Senna TAB 8.6 mg TAB PO PRN (01:15)
[2020-09-02] MEDS ORDERED: Iodixanol (CONTRAST) 320 MG/ML 100 ML SDV IV ONE (01:22)
[2020-09-02] MEDS ORDERED: Enoxaparin 40 MG/0.4 ML SYR SUBCUT SCH (02:00)
[2020-09-02] MEDS ORDERED: Heparin DRIP 25,000 UNITS BAG 25,000 UNITS/500 ML BAG IV SCH (02:45)
[2020-09-02] MEDS ORDERED: Heparin 5000 UNITS/ML 1 mL VIAL IV SCH (03:00)
[2020-09-02] MEDS: NS 0.9% 1000 ml BAG 500 ML IV SCH (03:30)
[2020-09-02] MEDS: Azithromycin 500 mg/250 ml NS 500 MG/250 ML BAG IVPB SCH (03:30)
[2020-09-02] MEDS: cefTRIAXone 1 gm/50 mL NS BAG 1 GM/50 ML BAG IVPB SCH (23:26)
[2020-09-03] MEDS: Azithromycin 500 mg/250 ml NS 500 MG/250 ML BAG IVPB SCH (02:54)
[2020-09-03 07:15] LABS: ABS Eosinophils 0.3 10^3/ul (0-0.6); ABS Lymphocytes 1.8 10^3/ul (1.0-4.8); ABS Monocytes 0.7 10^3/ul (0-0.8); ABS Neutrophils 4.9 10^3/ul (1.5-7.7); Eosinophil % 3.9 %; Hematocrit 25 % (35-47); Hemoglobin 8.8 g/dL (12.0-16.0); Lymphocyte % 23.2 %; Mean Corpuscular HGB Conc 35 g/dL (31-36); Mean Corpuscular Hemoglobin 33 pg (27-31); Mean Corpuscular Volume 93 fL (80-97); Mean Platelet Volume 7.6 fL (7.4-10.4); Platelet Count 246 10^3/uL (150-450); Red Blood Count 2.72 10^6 /uL (3.70-4.87); Red Cell Distribution Width 14 % (10-15); White Blood Count 7.8 10^3/uL (3.5-10.8)
[2020-09-03 07:42] LABS: Calcium 8.6 mg/dL (8.6-10.3); EGFR African American 53.8 (>60); EGFR Non-African American 44.4 (>60); Potassium 4.1 mmol/L (3.5-5.0)
[2020-09-03] MEDS: cefTRIAXone 1 gm/50 mL NS BAG 1 GM/50 ML BAG IVPB SCH (23:26)
[2020-09-04] MEDS: Azithromycin 500 mg/250 ml NS 500 MG/250 ML BAG IVPB SCH (02:23)
[2020-09-04 05:10] LABS: ABS Eosinophils 0.3 10^3/ul (0-0.6); ABS Lymphocytes 1.3 10^3/ul (1.0-4.8); Eosinophil % 2.9 %; Hematocrit 27 % (35-47); Hemoglobin 9.2 g/dL (12.0-16.0); Lymphocyte % 13.8 %; Mean Corpuscular HGB Conc 35 g/dL (31-36); Mean Corpuscular Hemoglobin 32 pg (27-31); Mean Corpuscular Volume 93 fL (80-97); Mean Platelet Volume 7.4 fL (7.4-10.4); Platelet Count 279 10^3/uL (150-450); Red Blood Count 2.85 10^6 /uL (3.70-4.87); Red Cell Distribution Width 14 % (10-15); White Blood Count 9.6 10^3/uL (3.5-10.8)
[2020-09-05] MEDS ORDERED: Magnesium Hydroxide LIQ 30 ML UDC PO ONE (09:48)
[2020-09-07 05:54] LABS: Hematocrit 26 % (35-47); Hemoglobin 8.9 g/dL (12.0-16.0); Mean Corpuscular HGB Conc 34 g/dL (31-36); Mean Corpuscular Hemoglobin 32 pg (27-31); Mean Corpuscular Volume 93 fL (80-97); Mean Platelet Volume 7.4 fL (7.4-10.4); Platelet Count 315 10^3/uL (150-450); Red Blood Count 2.79 10^6 /uL (3.70-4.87); Red Cell Distribution Width 14 % (10-15); White Blood Count 8.7 10^3/uL (3.5-10.8)
[2020-09-07 09:43] VITALS: BP 141/58
== END 2020-09-07 13:15 | DRG 175 ==
LOC: ED 18:51 → MEDTELE 09-02 01:01
PROVIDERS: ADMIT Internal Medicine; ATTEND Internal Medicine

== ENCOUNTER 2020-09-28 13:23 | Inpatient (IN) ==
[2020-09-28 14:17] LABS: ABS Basophils 0.1 10^3/ul (0-0.2); ABS Eosinophils 0.4 10^3/ul (0-0.6); ABS Lymphocytes 2.1 10^3/ul (1.0-4.8); ABS Monocytes 0.7 10^3/ul (0-0.8); ABS Neutrophils 4.1 10^3/ul (1.5-7.7); Hematocrit 19 % (35-47); Hemoglobin 6.6 g/dL (12.0-16.0); Lymphocyte % 28.6 %; Mean Corpuscular HGB Conc 34 g/dL (31-36); Mean Corpuscular Hemoglobin 33 pg (27-31); Mean Corpuscular Volume 96 fL (80-97); Mean Platelet Volume 7.1 fL (7.4-10.4); Platelet Count 289 10^3/uL (150-450); Red Blood Count 2.01 10^6 /uL (3.70-4.87); Red Cell Distribution Width 16 % (10-15); White Blood Count 7.4 10^3/uL (3.5-10.8)
[2020-09-28 14:48] LABS: Albumin 3.5 g/dL (3.2-5.2); Albumin/Globulin Ratio 1.1 (1-3); EGFR African American 40.8 (>60); EGFR Non-African American 33.7 (>60); Globulin 3.1 g/dL (2-4); Potassium 4.7 mmol/L (3.5-5.0); Total Bilirubin 0.2 mg/dL (0.2-1.0); Total Protein 6.6 g/dL (6.4-8.9)
[2020-09-28] MEDS ORDERED: Furosemide 20 mg/2 ml IV VIAL IV ONE (19:00)
[2020-09-28 21:10] LABS: Hematocrit 24 % (35-47); Hemoglobin 8.1 g/dL (12.0-16.0)
[2020-09-28] MEDS: Senna TAB 8.6 mg TAB PO SCH (21:31)
[2020-09-29 05:51] LABS: Hematocrit 27 % (35-47); Hemoglobin 9.2 g/dL (12.0-16.0)
[2020-09-29 06:10] LABS: Calcium 9.2 mg/dL (8.6-10.3); EGFR African American 41.1 (>60); Potassium 4.1 mmol/L (3.5-5.0)
[2020-09-29 09:12] LABS: INR 1.55 (0.82-1.09)
[2020-09-29 09:34] LABS: % Iron Saturation 16 % (15-55); Iron 55 ug/dL (50-212); Total Iron Binding Capacity 337 mcg/dL (250-450); Transferrin 241 mg/dL (203-362); Unsaturated Iron Binding < 322 ug/dL
[2020-09-29 09:54] LABS: Ferritin 42.3 ng/mL (11-307)
[2020-09-29 14:40] LABS: Folate > 20.00 ng/mL (5.90-24.80); Vitamin B12 698 pg/mL (180-914)
[2020-09-29] MEDS ORDERED: Heparin 2 UNITS/ML 1000 mls 1,000 ML IV ONE (14:49)
[2020-09-29] MEDS ORDERED: fentaNYL 100 mcg/2 ml 50 MCG/ML VIAL ONE (15:16)
[2020-09-29] MEDS: Senna TAB 8.6 mg TAB PO SCH (19:57)
[2020-09-30 07:19] LABS: ABS Basophils 0.1 10^3/ul (0-0.2); ABS Eosinophils 0.6 10^3/ul (0-0.6); ABS Monocytes 0.6 10^3/ul (0-0.8); ABS Neutrophils 4.5 10^3/ul (1.5-7.7); Eosinophil % 7.4 %; Hematocrit 25 % (35-47); Hemoglobin 8.7 g/dL (12.0-16.0); Lymphocyte % 25.2 %; Mean Corpuscular HGB Conc 34 g/dL (31-36); Mean Corpuscular Hemoglobin 33 pg (27-31); Mean Corpuscular Volume 97 fL (80-97); Mean Platelet Volume 7.6 fL (7.4-10.4); Platelet Count 247 10^3/uL (150-450); Red Blood Count 2.62 10^6 /uL (3.70-4.87); Red Cell Distribution Width 16 % (10-15); White Blood Count 7.8 10^3/uL (3.5-10.8)
[2020-09-30 07:26] LABS: Calcium 8.8 mg/dL (8.6-10.3); EGFR African American 44.3 (>60); EGFR Non-African American 36.6 (>60); Magnesium 1.8 mg/dL (1.9-2.7); Potassium 4.2 mmol/L (3.5-5.0)
[2020-09-30] MEDS: Senna TAB 8.6 mg TAB PO SCH (19:42)
[2020-10-01 06:24] LABS: Hematocrit 26 % (35-47); Hemoglobin 8.7 g/dL (12.0-16.0); Mean Corpuscular HGB Conc 34 g/dL (31-36); Mean Corpuscular Hemoglobin 33 pg (27-31); Mean Corpuscular Volume 96 fL (80-97); Mean Platelet Volume 7.6 fL (7.4-10.4); Platelet Count 244 10^3/uL (150-450); Red Blood Count 2.65 10^6 /uL (3.70-4.87); Red Cell Distribution Width 16 % (10-15); White Blood Count 8.4 10^3/uL (3.5-10.8)
[2020-10-01 06:40] LABS: Calcium 8.6 mg/dL (8.6-10.3); EGFR African American 54.3 (>60); EGFR Non-African American 44.9 (>60); Potassium 4.1 mmol/L (3.5-5.0)
[2020-10-01] MEDS: Senna TAB 8.6 mg TAB PO SCH (20:40)
[2020-10-02 12:46] LABS: ABS Basophils 0.1 10^3/ul (0-0.2); ABS Eosinophils 0.5 10^3/ul (0-0.6); ABS Lymphocytes 1.7 10^3/ul (1.0-4.8); ABS Monocytes 0.7 10^3/ul (0-0.8); ABS Neutrophils 4.8 10^3/ul (1.5-7.7); Hematocrit 26 % (35-47); Hemoglobin 8.7 g/dL (12.0-16.0); Lymphocyte % 21.8 %; Mean Corpuscular HGB Conc 33 g/dL (31-36); Mean Corpuscular Hemoglobin 33 pg (27-31); Mean Corpuscular Volume 98 fL (80-97); Mean Platelet Volume 7.4 fL (7.4-10.4); Nucleated Red Blood Cells % 0.1; Platelet Count 232 10^3/uL (150-450); Red Blood Count 2.68 10^6 /uL (3.70-4.87); Red Cell Distribution Width 16 % (10-15); White Blood Count 7.8 10^3/uL (3.5-10.8)
[2020-10-02 13:10] LABS: Calcium 8.2 mg/dL (8.6-10.3); Potassium 4.3 mmol/L (3.5-5.0)
[2020-10-02 13:15] LABS: EGFR African American 48.8 (>60); EGFR Non-African American 40.4 (>60)
[2020-10-02] MEDS ORDERED: Senna TAB 8.6 mg TAB PO ONE (13:23)
[2020-10-02] MEDS ORDERED: Magnesium Hydroxide LIQ 30 ML UDC PO PRN (13:23)
[2020-10-02] MEDS: Senna TAB 8.6 mg TAB PO SCH (20:22)
[2020-10-03 12:56] VITALS: BP 119/46
== END 2020-10-03 15:00 | DRG 812 ==
LOC: ED 13:23 → MED 13:23
PROVIDERS: ADMIT Internal Medicine; ATTEND Internal Medicine